=== PATIENT | female | born 1935 | race Caucasian/White ===

== ENCOUNTER → 2016-06-04 | Outpatient (CLI) | payer MEDICARE ==
--- NOTE | 2016-06-05 13:29 | MM ---
Reason for exam: screening (asymptomatic). Last mammogram was performed 1 year and 5 months ago. History: Patient is postmenopausal. Family history of breast cancer in sister at age 75 and breast cancer in mother. Took estrogen for 3 months. Physical Findings: A clinical breast exam by your physician is recommended on an annual basis and results should be correlated with mammographic findings. MG 3D Screening Mammo W/Cad Bilateral CC and MLO view(s) were taken. Prior study comparison: December 27, 2014, bilateral MG screening mammo w CAD. November 01, 2013, bilateral MG screening mammo w CAD. September 28, 2012, bilateral digital screening mammo w/CAD. There are scattered fibroglandular densities. No significant changes when compared with prior studies. ASSESSMENT: Negative, BI-RAD 1 RECOMMENDATION: Routine screening mammogram of both breasts in 1 year.
== END | disposition home or self-care (01) ==
LOC: RADMAMWWP 14:53
PROVIDERS: ATTEND Obstetrics & Gynecology
DX: Z12.31 Encounter for screening mammogram for malignant neoplasm of breast (principal); Z80.3 Family history of malignant neoplasm of breast
CPT/HCPCS: 77052; 77063; G0202

== ENCOUNTER → 2017-08-21 | Outpatient (CLI) | payer MEDICARE ==
--- NOTE | 2017-08-24 11:36 | MM ---
Reason for exam: screening (asymptomatic). Last mammogram was performed 1 year and 3 months ago. History: Patient is postmenopausal. Family history of breast cancer in sister at age 75 and breast cancer in mother. Took estrogen for 3 months. Physical Findings: A clinical breast exam by your physician is recommended on an annual basis and results should be correlated with mammographic findings. MG 3D Screening Mammo W/Cad Bilateral CC and MLO view(s) were taken. Prior study comparison: June 04, 2016, bilateral MG 3d screening mammo w/cad. December 27, 2014, bilateral MG screening mammo w CAD. The breast tissue is heterogeneously dense. This may lower the sensitivity of mammography. Benign calcifications bilaterally. ASSESSMENT: Benign, BI-RAD 2 RECOMMENDATION: Routine screening mammogram of both breasts in 1 year.
== END | disposition home or self-care (01) ==
LOC: RADMAMWWP 13:24
PROVIDERS: ATTEND Obstetrics & Gynecology
DX: Z12.31 Encounter for screening mammogram for malignant neoplasm of breast (principal); Z80.3 Family history of malignant neoplasm of breast
CPT/HCPCS: 77063; 77067

== ENCOUNTER 2017-09-06 18:56 | Inpatient (IN) | payer MEDICARE ==
[2017-09-06] MEDS ORDERED: SODIUM CHLORIDE 0.9% 500 ML IV STA (19:39)
[2017-09-06] MEDS ORDERED: MORPHINE SULFATE 4MG/4ML SYRG IV STA (19:39)
[2017-09-06] MEDS ORDERED: RX INFO: IV CONTRAST WAS GIVEN 1 EACH MISC MISCELLANE PRN (19:39)
[2017-09-06] MEDS ORDERED: ONDANSETRON 4 MG/2 ML VIAL IVP STA ×2 (19:39→21:08)
--- NOTE | 2017-09-06 19:42 | ED ---
General Adult HPI - General Chief complaint: Abdominal Pain Stated complaint: abd pain Time Seen by Provider: 09/06/17 19:23 Source: patient, RN notes reviewed, old records reviewed Mode of arrival: ambulatory Limitations: no limitations - History of Present Illness Initial comments: 82-year-old female presenting from home with chief complaint of lower abdominal pain. Pain began this morning, has progressively worsened. Describes it as bilateral lower abdominal pain. She has had decreased bathroom several times today, stool was soft but no wallace diarrhea. Patient has had several episodes of vomiting which has progressed to dry heaving. No history of fever or chills. Patient is fairly healthy at baseline, has glaucoma and asthma. - Related Data Allergies Allergy/AdvReac Type Severity Reaction Status Date / Time azithromycin Allergy Unknown Verified 09/06/17 19:06 Review of Systems ROS Statement: Those systems with pertinent positive or pertinent negative responses have been documented in the HPI. ROS Other: All systems not noted in ROS Statement are negative. Past Medical History Past Medical History: Asthma History of Any Multi-Drug Resistant Organisms: None Reported Past Surgical History: Back Surgery, Cholecystectomy, Hysterectomy Additional Past Surgical History / Comment(s): cataract Past Psychological History: No Psychological Hx Reported Smoking Status: Never smoker Past Alcohol Use History: Rare Past Drug Use History: None Reported General Exam Limitations: no limitations General appearance: alert, in no apparent distress Head exam: Present: atraumatic, normocephalic Eye exam: Present: normal appearance, PERRL, EOMI ENT exam: Present: normal exam Neck exam: Present: normal inspection. Absent: tenderness, meningismus Respiratory exam: Present: normal lung sounds bilaterally. Absent: respiratory distress, wheezes Cardiovascular Exam: Present: regular rate, normal rhythm GI/Abdominal exam: Present: soft, tenderness (Right lower quadrant,), hernia ( Hernia right lower quadrant, nonreducible, tender). Absent: distended Extremities exam: Present: normal inspection, full ROM, normal capillary refill. Absent: tenderness, pedal edema Neurological exam: Present: alert, oriented X3, CN II-XII intact. Absent: motor sensory deficit Psychiatric exam: Present: normal affect, normal mood Skin exam: Present: warm, dry, intact. Absent: cyanosis, diaphoretic Course Vital Signs 09/06/17 09/06/17 09/06/17 19:02 20:08 21:26 Temperature 97.6 F 97.6 F Pulse Rate 76 78 88 Respiratory 18 18 18 Rate Blood Pressure 182/87 165/92 O2 Sat by Pulse 99 99 98 Oximetry EKG Findings - EKG Comments: EKG Findings:: EKG, sinus rhythm with PACs, ventricular rate of 76, LA interval 160, QRS duration 90, QTC 447 Medical Decision Making - Medical Decision Making 82-year-old female presenting with abdominal pain nausea vomiting. On exam patient has a right inguinal hernia which is nonreducible, firm and tender. Laboratory studies are obtained, she has elevated white blood cell count 15.9, hemoglobin 14.0 CO2 is 19 consistent with a degree of acidosis, lactic acid elevated at 2.3. CT shows right inguinal hernia with transition point and small bowel obstruction. This is discussed with Dr. Smith, he will take the patient to the operating room tonight. NG tube is placed in the emergency department. Patient given IV hydration, 1 g ceftriaxone. Diagnosis: Incarcerated hernia, lactic acidosis, small bowel obstruction - Lab Data Result diagrams: 09/06/17 19:35 09/06/17 19:35 Lab Results 09/06/17 09/06/17 09/06/17 Range/Units 19:35 19:35 19:35 WBC 15.9 H (3.8-10.6) k/uL RBC 4.63 (3.80-5.40) m/uL Hgb 14.0 (11.4-16.0) gm/dL Hct 42.7 (34.0-46.0) % MCV 92.2 (80.0-100.0) fL MCH 30.2 (25.0-35.0) pg MCHC 32.8 (31.0-37.0) g/dL RDW 13.5 (11.5-15.5) % Plt Count 289 (150-450) k/uL Neutrophils % 86 % Lymphocytes % 10 % Monocytes % 3 % Eosinophils % 0 % Basophils % 0 % Neutrophils # 13.6 H (1.3-7.7) k/uL Lymphocytes # 1.5 (1.0-4.8) k/uL Monocytes # 0.5 (0-1.0) k/uL Eosinophils # 0.1 (0-0.7) k/uL Basophils # 0.0 (0-0.2) k/uL PT (9.0-12.0) sec INR (<1.2) APTT (22.0-30.0) sec Sodium 137 (137-145) mmol/L Potassium 4.3 (3.5-5.1) mmol/L Chloride 103 (98-107) mmol/L Carbon Dioxide 19 L (22-30) mmol/L Anion Gap 15 mmol/L BUN 22 H (7-17) mg/dL Creatinine 0.90 (0.52-1.04) mg/dL Est GFR (CKD-EPI)AfAm 69 (>60 ml/min/1.73 sqM) Est GFR (CKD-EPI)NonAf 60 (>60 ml/min/1.73 sqM) Glucose 158 H (74-99) mg/dL Plasma Lactic Acid Yogi 2.3 H* (0.7-2.0) mmol/L Calcium 10.0 (8.4-10.2) mg/dL Total Bilirubin 0.4 (0.2-1.3) mg/dL AST 22 (14-36) U/L ALT 23 (9-52) U/L Alkaline Phosphatase 62 (38-126) U/L Total Protein 7.1 (6.3-8.2) g/dL Albumin 4.2 (3.5-5.0) g/dL Amylase 37 (30-110) U/L Lipase 229 (23-300) U/L Urine Color Urine Appearance (Clear) Urine pH (5.0-8.0) Ur Specific [place] (1.001-1.035) Urine Protein (Negative) Urine Glucose (UA) (Negative) Urine Ketones (Negative) Urine Blood (Negative) Urine Nitrite (Negative) Urine Bilirubin (Negative) Urine Urobilinogen (<2.0) mg/dL Ur Leukocyte Esterase (Negative) Urine RBC (0-5) /hpf Urine WBC (0-5) /hpf Ur Squamous Epith Cells (0-4) /hpf Urine Bacteria (None) /hpf Urine Mucus (None) /hpf 09/06/17 09/06/17 Range/Units 19:35 21:15 WBC (3.8-10.6) k/uL RBC (3.80-5.40) m/uL Hgb (11.4-16.0) gm/dL Hct (34.0-46.0) % MCV (80.0-100.0) fL MCH (25.0-35.0) pg MCHC (31.0-37.0) g/dL RDW (11.5-15.5) % Plt Count (150-450) k/uL Neutrophils % % Lymphocytes % % Monocytes % % Eosinophils % % Basophils % % Neutrophils # (1.3-7.7) k/uL Lymphocytes # (1.0-4.8) k/uL Monocytes # (0-1.0) k/uL Eosinophils # (0-0.7) k/uL Basophils # (0-0.2) k/uL PT 10.3 (9.0-12.0) sec INR 1.1 (<1.2) APTT 19.9 L (22.0-30.0) sec Sodium (137-145) mmol/L Potassium (3.5-5.1) mmol/L Chloride (98-107) mmol/L Carbon Dioxide (22-30) mmol/L Anion Gap mmol/L BUN (7-17) mg/dL Creatinine (0.52-1.04) mg/dL Est GFR (CKD-EPI)AfAm (>60 ml/min/1.73 sqM) Est GFR (CKD-EPI)NonAf (>60 ml/min/1.73 sqM) Glucose (74-99) mg/dL Plasma Lactic Acid Yogi (0.7-2.0) mmol/L Calcium (8.4-10.2) mg/dL Total Bilirubin (0.2-1.3) mg/dL AST (14-36) U/L ALT (9-52) U/L Alkaline Phosphatase (38-126) U/L Total Protein (6.3-8.2) g/dL Albumin (3.5-5.0) g/dL Amylase (30-110) U/L Lipase (23-300) U/L Urine Color Light Yellow Urine Appearance Clear (Clear) Urine pH 6.0 (5.0-8.0) Ur Specific [place] 1.034 (1.001-1.035) Urine Protein Negative (Negative) Urine Glucose (UA) 2+ H (Negative) Urine Ketones 2+ H (Negative) Urine Blood Negative (Negative) Urine Nitrite Negative (Negative) Urine Bilirubin Negative (Negative) Urine Urobilinogen <2.0 (<2.0) mg/dL Ur Leukocyte Esterase Moderate H (Negative) Urine RBC 7 H (0-5) /hpf Urine WBC 28 H (0-5) /hpf Ur Squamous Epith Cells 2 (0-4) /hpf Urine Bacteria Rare H (None) /hpf Urine Mucus Rare H (None) /hpf Critical Care Time Critical Care Time: Yes Total Critical Care Time: 35 Disposition Clinical Impression: Small bowel obstruction, Incarcerated hernia, Lactic acidosis Disposition: ADMITTED IP TO THIS [facility] Condition: Serious Referrals: Osman Wolf MD [Primary Care Provider] - 1-2 days Decision to Admit Reason: Admit from EC Decision Date: 09/06/17 Decision Time: 21:38
[2017-09-06 20:01] LABS: Basophils % (A) 0 %; Eosinophils # (A) 0.1 k/uL (0-0.7); Eosinophils % (A) 0 %; HCT 42.7 % (34.0-46.0); Lymphocytes # (A) 1.5 k/uL (1.0-4.8); Lymphocytes % (A) 10 %; MCH 30.2 pg (25.0-35.0); MCHC 32.8 g/dL (31.0-37.0); MCV 92.2 fL (80.0-100.0); Mean Platelet Volume 7.3; Monocytes # (A) 0.5 k/uL (0-1.0); Monocytes % (A) 3 %; Neutrophils # (A) 13.6 k/uL (1.3-7.7); Neutrophils % (A) 86 %; Platelet Count 289 k/uL (150-450); RBC 4.63 m/uL (3.80-5.40); RDW 13.5 % (11.5-15.5); WBC 15.9 k/uL (3.8-10.6)
[2017-09-06 20:08] LABS: Albumin 4.2 g/dL (3.5-5.0); Potassium 4.3 mmol/L (3.5-5.1); Total Bilirubin 0.4 mg/dL (0.2-1.3); Total Protein 7.1 g/dL (6.3-8.2)
[2017-09-06 20:13] LABS: INR 1.1 (<1.2); Prothrombin Time 10.3 sec (9.0-12.0)
[2017-09-06 20:17] LABS: Partial Thromboplastin Time 19.9 sec (22.0-30.0)
--- NOTE | 2017-09-06 21:25 | CT ---
EXAMINATION TYPE: CT abdomen pelvis w con DATE OF EXAM: 09/06/2017 COMPARISON: NONE INDICATION: Low abdominal pain. DLP: 565.4 mGycm, Automated exposure control for dose reduction was used. CONTRAST: 80 mL of Isovue 300. Study performed without Oral Contrast TECHNIQUE: Axial images were obtained from above the diaphragm to the pubic rami in the axial plane a t 5 mm thick sections. Reconstructed images are reviewed on the computer in the coronal plane. FINDINGS: Limited CT sections are obtained the lung bases. The lung bases are clear. Small to moderate hiatal hernia is present. CT ABDOMEN: Liver: Normal Spleen: Normal Pancreas: Atrophic Adrenal glands: The adrenal glands are normal. Gallbladder: Not clearly identified. Kidneys: No masses are evident. No hydronephrosis is present. No cysts are present. Delayed images were obtained through the kidneys, which remain unremarkable. Aorta: Vascular calcification is within the aorta. Inferior vena cava: Normal. CT PELVIS: Multiple small bowel loops are dilated with fluid in scattered air-fluid levels. This extends to the inguinal hernia which contains loops of small bowel. Incarcerated loops of bowel are likely present. There is a transition point within the small bowel loops entering and exiting this hernia. Distal small bowel loops and proximal small bowel loops appear nondilated. Fecal debris is in the tr ansverse colon. Sigmoid colon contains multiple diverticuli without acute diverticulitis. Appendix: Not identified. No suspicious tubular structures or inflammatory changes are evident. Urinary bladder: Normal. Genitourinary structures: Uterus and ovaries are not identified. Osseous structures: No suspicious lytic or sclerotic lesions. IMPRESSIONS: 1. Right inguinal hernia containing small bowel loops. There is a transition point with decompressed exiting small bowel loop and dilated fluid-filled small bowel loops suggestive of high-grade or comp lete early obstruction due to the inguinal hernia. Report was called to emergency room physician by Albaro Rios by telephone [phone] hours
[2017-09-06 21:32] LABS: Appearance,Urine Clear (Clear); Bacteria,Urine Rare /hpf; Bilirubin,Urine Negative (Negative); Blood,Urine Negative (Negative); Color,Urine Light Yellow; Glucose,Urine (UA) 2+ (Negative); Leukocyte Esterase,Urine Moderate (Negative); Mucus,Urine Rare /hpf; Nitrite,Urine Negative (Negative); Protein,Urine Negative (Negative); RBC,Urine 7 /hpf (0-5); Specific Gravity,Urine 1.034 (1.001-1.035); Squamous Epithelial Cell,Urine 2 /hpf (0-4); Urobilinogen,Urine <2.0 mg/dL (<2.0); WBC,Urine 28 /hpf (0-5)
[2017-09-06] MEDS ORDERED: MORPHINE SULFATE 4MG/4ML SYRG IVP STA (21:33)
[2017-09-06 21:34] LABS: Ketones,Urine 2+ (Negative)
[2017-09-06] MEDS ORDERED: cefTRIAXone IN SWFI 1,000 MG/10 ML SYRINGE IVP STA (21:35)
[2017-09-06] MEDS ORDERED: MORPHINE SULFATE 4MG/4ML SYRG IV PRN (21:39)
[2017-09-06] MEDS ORDERED: NALOXONE 0.4 MG/ML 1 ML VIAL IV PRN (21:39)
[2017-09-06] MEDS ORDERED: SODIUM CHLORIDE 0.9% 1,000 ML IV SCH (21:45)
--- NOTE | 2017-09-06 22:36 | P.GSHP ---
History of Present Illness H&P Date: 09/06/17 Is a 82-year-old female who presented to the emergency room with a chief complaint of nausea vomiting and abdominal pain this was right lower quadrant abdominal pain. She states this all began at 3:00 this afternoon. She's been coughing secondary to a cold that she had. Her last bowel movement was 1 day ago. Her pain is mostly in her groin but she is experiencing some lower abdominal pain as well. She's never had pain like this before. Nothing makes it better and nothing makes it worse. She has a past surgical history of open cholecystectomy in 1976 and subsequently a incisional hernia repair. She's also had a bladder sling. She denies any fevers or chills no other complaints Past Medical History Past Medical History: Asthma History of Any Multi-Drug Resistant Organisms: None Reported Past Surgical History: Back Surgery, Cholecystectomy, Hysterectomy Additional Past Surgical History / Comment(s): cataract Past Psychological History: No Psychological Hx Reported Smoking Status: Never smoker Past Alcohol Use History: Rare Past Drug Use History: None Reported Medications and Allergies Allergies Allergy/AdvReac Type Severity Reaction Status Date / Time azithromycin Allergy Unknown Verified 09/06/17 19:06 Surgical - Exam Osteopathic Statement: *. No significant issues noted on an osteopathic structural exam other than those noted in the History and Physical/Consult. Vital Signs Temp Pulse Resp BP Pulse Ox 97.6 F 76 18 182/87 99 09/06/17 19:02 09/06/17 19:02 09/06/17 19:02 09/06/17 19:02 09/06/17 19:02 - General well developed, well nourished, no distress - Eyes PERRL - ENT normal mucosa - Neck no masses, trachea midline - Respiratory normal expansion, normal respiratory effort - Cardiovascular Rhythm: regular - Abdomen Soft mild distention mild tenderness palpation the right lower and left lower quadrant. She has an incarcerated right inguinal hernia which is tender to palpation - Neurologic normal coordination, normal sensation - Musculoskeletal normal gait - Psychiatric oriented to time, oriented to person, oriented to place Results - Labs 09/06/17 19:35 09/06/17 19:35 Abnormal Lab Results - Last 24 Hours (Table) 09/06/17 09/06/17 09/06/17 Range/Units 19:35 19:35 19:35 WBC 15.9 H (3.8-10.6) k/uL Neutrophils # 13.6 H (1.3-7.7) k/uL APTT (22.0-30.0) sec Carbon Dioxide 19 L (22-30) mmol/L BUN 22 H (7-17) mg/dL Glucose 158 H (74-99) mg/dL Plasma Lactic Acid Yogi 2.3 H* (0.7-2.0) mmol/L Urine Glucose (UA) (Negative) Urine Ketones (Negative) Ur Leukocyte Esterase (Negative) Urine RBC (0-5) /hpf Urine WBC (0-5) /hpf Urine Bacteria (None) /hpf Urine Mucus (None) /hpf 09/06/17 09/06/17 Range/Units 19:35 21:15 WBC (3.8-10.6) k/uL Neutrophils # (1.3-7.7) k/uL APTT 19.9 L (22.0-30.0) sec Carbon Dioxide (22-30) mmol/L BUN (7-17) mg/dL Glucose (74-99) mg/dL Plasma Lactic Acid Yogi (0.7-2.0) mmol/L Urine Glucose (UA) 2+ H (Negative) Urine Ketones 2+ H (Negative) Ur Leukocyte Esterase Moderate H (Negative) Urine RBC 7 H (0-5) /hpf Urine WBC 28 H (0-5) /hpf Urine Bacteria Rare H (None) /hpf Urine Mucus Rare H (None) /hpf Diabetes panel 09/06/17 Range/Units 19:35 Sodium 137 (137-145) mmol/L Potassium 4.3 (3.5-5.1) mmol/L Chloride 103 (98-107) mmol/L Carbon Dioxide 19 L (22-30) mmol/L BUN 22 H (7-17) mg/dL Creatinine 0.90 (0.52-1.04) mg/dL Glucose 158 H (74-99) mg/dL Calcium 10.0 (8.4-10.2) mg/dL AST 22 (14-36) U/L ALT 23 (9-52) U/L Alkaline Phosphatase 62 (38-126) U/L Total Protein 7.1 (6.3-8.2) g/dL Albumin 4.2 (3.5-5.0) g/dL Calcium panel 09/06/17 Range/Units 19:35 Calcium 10.0 (8.4-10.2) mg/dL Albumin 4.2 (3.5-5.0) g/dL Pituitary panel 09/06/17 Range/Units 19:35 Sodium 137 (137-145) mmol/L Potassium 4.3 (3.5-5.1) mmol/L Chloride 103 (98-107) mmol/L Carbon Dioxide 19 L (22-30) mmol/L BUN 22 H (7-17) mg/dL Creatinine 0.90 (0.52-1.04) mg/dL Glucose 158 H (74-99) mg/dL Calcium 10.0 (8.4-10.2) mg/dL Adrenal panel 09/06/17 Range/Units 19:35 Sodium 137 (137-145) mmol/L Potassium 4.3 (3.5-5.1) mmol/L Chloride 103 (98-107) mmol/L Carbon Dioxide 19 L (22-30) mmol/L BUN 22 H (7-17) mg/dL Creatinine 0.90 (0.52-1.04) mg/dL Glucose 158 H (74-99) mg/dL Calcium 10.0 (8.4-10.2) mg/dL Total Bilirubin 0.4 (0.2-1.3) mg/dL AST 22 (14-36) U/L ALT 23 (9-52) U/L Alkaline Phosphatase 62 (38-126) U/L Total Protein 7.1 (6.3-8.2) g/dL Albumin 4.2 (3.5-5.0) g/dL - Imaging CT scan - abdomen: report reviewed, image reviewed CT scan - pelvis: report reviewed, image reviewed Assessment and Plan Assessment: Incarcerated right inguinal hernia. Plan: Given the patient's elevated white count along with elevated lactic acid and history of this incarcerated inguinal hernia for greater than 6 hours I discussed with the patient having an inguinal hernia repair with possible bowel resection if there is compromised small bowel. Risks benefits and alternatives to this were discussed the patient risks include bleeding infection damage surrounding tissue need for further operation. Patient stated she understood these risks agreed and consented. She'll remain nothing by mouth she received Rocephin in the emergency room.
[2017-09-06] MEDS ORDERED: SUCCINYLCHOLINE CHLORIDE 100 MG/5 ML SYR IV ONE (22:41)
[2017-09-06] MEDS ORDERED: LIDOCAINE 1% INJ 10MG/ML (20 ML MDV) ONE (22:41)
[2017-09-06] MEDS ORDERED: SODIUM CHLORIDE 0.9% 1,000 ML IV ONE (22:41)
[2017-09-06] MEDS ORDERED: ROCURONIUM BROMIDE 10 MG/ML 10 ML VIAL IV ONE (22:41)
[2017-09-06] MEDS ORDERED: fentaNYL (PF) 50 MCG/ML 2 ML AMP ONE (22:41)
[2017-09-06] MEDS ORDERED: PROPOFOL 10 MG/ML 20 ML VIAL IV ONE (22:41)
[2017-09-06] MEDS ORDERED: NEOSTIGMINE 1 MG/ML 10 ML VIAL ONE (22:41)
[2017-09-06] MEDS ORDERED: GLYCOPYRROLATE 0.2 MG/ML 2 ML VIAL ONE (22:41)
[2017-09-06] MEDS ORDERED: LIDOCAINE 1%-EPI 1:100,000 30 ML VIAL SQ ONE ×2 (23:05)
[2017-09-06] MEDS ORDERED: BUPIVACAINE (PF) 0.25% 30 ML VIAL SQ ONE ×2 (23:05)
[2017-09-06] MEDS ORDERED: metroNIDAZOLE-NS PMX 500 MG in SALINE 1 100ML.BAG IVPB STA (23:07)
[2017-09-07] MEDS ORDERED: MORPHINE SULFATE 4MG/4ML SYRG IVP PRN (00:07)
[2017-09-07] MEDS ORDERED: ACETAMINOPHEN IV (For NPO) 1,000 MG in EMPTY BAG 1 BAG IVPB ONE (00:07)
[2017-09-07] MEDS ORDERED: NALOXONE 0.4 MG/ML 1 ML VIAL IV PRN (00:07)
[2017-09-07] MEDS: LACTATED RINGERS 1,000 ML IV SCH ×3 (01:20→21:10)
[2017-09-07] MEDS: metroNIDAZOLE-NS PMX 500 MG in SALINE 1 100ML.BAG IVPB SCH ×4 (06:11→23:29)
[2017-09-07 06:18] LABS: Basophils % (A) 0 %; Eosinophils % (A) 0 %; HCT 33.1 % (34.0-46.0); Lymphocytes # (A) 0.8 k/uL (1.0-4.8); Lymphocytes % (A) 4 %; MCH 29.5 pg (25.0-35.0); MCHC 31.8 g/dL (31.0-37.0); MCV 92.6 fL (80.0-100.0); Mean Platelet Volume 7.2; Monocytes % (A) 5 %; Neutrophils # (A) 16.2 k/uL (1.3-7.7); Neutrophils % (A) 90 %; Platelet Count 245 k/uL (150-450); RBC 3.57 m/uL (3.80-5.40); RDW 13.5 % (11.5-15.5); WBC 18.1 k/uL (3.8-10.6)
[2017-09-07 06:20] LABS: HGB 10.5 gm/dL (11.4-16.0)
[2017-09-07 06:29] LABS: Anion Gap 8 mmol/L; Blood Urea Nitrogen 18 mg/dL (7-17); Calcium 8.5 mg/dL (8.4-10.2); Carbon Dioxide 22 mmol/L (22-30); Chloride 105 mmol/L (98-107); Glucose 154 mg/dL (74-99); Potassium 4.7 mmol/L (3.5-5.1); Sodium 135 mmol/L (137-145)
[2017-09-07] MEDS: PANTOPRAZOLE 40 MG/10 ML VIAL IV SCH (08:42)
[2017-09-07] MEDS: HEPARIN SODIUM,PORCINE 5,000 UNIT/ML 1 ML VIAL SQ SCH ×3 (08:42→23:29)
--- NOTE | 2017-09-07 12:06 | P.OP ---
Date of Procedure: 09/06/17 Preoperative Diagnosis: Incarcerated right inguinal hernia Postoperative Diagnosis: Strangulated right inguinal hernia with ischemic bowel Procedure(s) Performed: Repair of strangulated right inguinal hernia with resection of ischemic bowel Anesthesia: CHARLIE Surgeon: Osman Smith Pathology: other (Ischemic/necrotic bowel with hernia sac) Condition: stable Disposition: PACU Indications for Procedure: This 82-year-old female who presented to the hospital with a chief complaint of right groin and abdominal pain nausea vomiting she was found to have a incarcerated right inguinal hernia and it was containing bowel she had an elevated white count and lactic acidosis. She described risk benefits and alternatives to right inguinal hernia repair with possible bowel resection. She states she understood agreed and consented informed consent was obtained Operative Findings: Stranding the right inguinal hernia containing ischemic/necrotic bowel Description of Procedure: Patient was brought to the operative suite remained in the supine position underwent general endotracheal anesthesia per Department of anesthesia she was prepped and draped in the usual sterile fashion timeout was performed correct patient correct procedure correct site was verified. An incision was made in the right groin approximately 7 cm long carried down to the external oblique fascia which was incised and there was a large firm hernia sac noted. The hernia appeared to be a direct inguinal hernia and the sac was dissected down to the base of the defect. At this point the sac was opened with Metzenbaum scissors and immediately dark ascites and ischemic bowel which appeared necrotic was noted. The bowel was not perforated. Small bowel from a proximal and distal limbs were both brought up through the defect easily until healthy bowel was noted. SATYA blue load stapler was used to staple across both the proximal and distal ends at healthy pink sections. Using a LigaSure the mesentery of the necrotic bowel was ligated and the ischemic necrotic piece was removed and sent to pathology. The proximal and distal ends were aligned enterotomies were made near the staple line and side to side functional end to end anastomosis was created using a blue load SATYA stapler. The common enterotomy was then closed with a blue TA stapler. A 3-0 Vicryl crotch stitch was placed the bowel was inspected the staple lines were inspected for hemostasis which was noted and then return to the peritoneal cavity through the defect. The hernia sac was ligated high ligation with 0 Vicryl stick tie and returned to the defect. The hernia was then repaired using 2-0 Vicryl suture transversalis was approximated to Rik's ligament with interrupted sutures. 3 -0 Vicryl was used to close the external oblique skin asha were used to close the skin after the wound was copiously irrigated sterile dressing was applied patient tolerated procedure well no apparent complications
--- NOTE | 2017-09-07 12:10 | P.PN ---
Subjective Progress Note Date: 09/07/17 Patient is doing well today, pain is improved. No acute events overnight. Dark bilious output from NGT. No bowel function reported. VSSAF Objective - Vital Signs Vital signs: Vital Signs Temp 98.7 F 09/07/17 07:00 Pulse 99 09/07/17 07:00 Resp 14 09/07/17 07:00 BP 105/59 09/07/17 07:00 Pulse Ox 98 09/07/17 07:00 Intake & Output 09/06/17 09/07/17 09/07/17 18:59 06:59 18:59 Intake Total 2500 Output Total 1055 Balance 1445 Weight 63.503 kg Intake: IV 600 Intake, IV Titration 1900 Amount ACETAMINOPHEN IV (For NPO 100 ) 1,000 mg In Empty Bag 1 bag @ 400 mls/hr IVPB ONCE ONE Rx#:[id number] Lactated Ringers 1,000 ml 800 @ 100 mls/hr IV .Q10H CARLOS Rx#:[id number] Sodium Chloride 0.9% 500 1000 ml @ 999 mls/hr IV .Q31M STA Rx#:[id number] Output: Gastric Drainage 75 Urine 950 Estimated Blood Loss 30 Other: Voiding Method Indwelling Catheter - Constitutional General appearance: Present: cooperative - EENT Eyes: Present: PERRLA - Respiratory Details: nonlabored - Cardiovascular Rhythm: regular - Gastrointestinal Gastrointestinal Comment(s): Soft nondistended. incisional TTP expected. - Integumentary Integumentary Comment(s): incision C/D/I - Psychiatric Psychiatric: Present: A&O x's 3 - Labs CBC & Chem 7: 09/07/17 05:50 09/07/17 05:50 Labs: Abnormal Lab Results - Last 24 Hours (Table) 09/06/17 09/06/17 09/06/17 Range/Units 19:35 19:35 19:35 WBC 15.9 H (3.8-10.6) k/uL RBC (3.80-5.40) m/uL Hgb (11.4-16.0) gm/dL Hct (34.0-46.0) % Neutrophils # 13.6 H (1.3-7.7) k/uL Lymphocytes # (1.0-4.8) k/uL APTT (22.0-30.0) sec Sodium (137-145) mmol/L Carbon Dioxide 19 L (22-30) mmol/L BUN 22 H (7-17) mg/dL Glucose 158 H (74-99) mg/dL Plasma Lactic Acid Yogi 2.3 H* (0.7-2.0) mmol/L Urine Glucose (UA) (Negative) Urine Ketones (Negative) Ur Leukocyte Esterase (Negative) Urine RBC (0-5) /hpf Urine WBC (0-5) /hpf Urine Bacteria (None) /hpf Urine Mucus (None) /hpf 09/06/17 09/06/17 09/07/17 Range/Units 19:35 21:15 05:50 WBC 18.1 H (3.8-10.6) k/uL RBC 3.57 L (3.80-5.40) m/uL Hgb 10.5 L D (11.4-16.0) gm/dL Hct 33.1 L (34.0-46.0) % Neutrophils # 16.2 H (1.3-7.7) k/uL Lymphocytes # 0.8 L (1.0-4.8) k/uL APTT 19.9 L (22.0-30.0) sec Sodium (137-145) mmol/L Carbon Dioxide (22-30) mmol/L BUN (7-17) mg/dL Glucose (74-99) mg/dL Plasma Lactic Acid Yogi (0.7-2.0) mmol/L Urine Glucose (UA) 2+ H (Negative) Urine Ketones 2+ H (Negative) Ur Leukocyte Esterase Moderate H (Negative) Urine RBC 7 H (0-5) /hpf Urine WBC 28 H (0-5) /hpf Urine Bacteria Rare H (None) /hpf Urine Mucus Rare H (None) /hpf 09/07/17 Range/Units 05:50 WBC (3.8-10.6) k/uL RBC (3.80-5.40) m/uL Hgb (11.4-16.0) gm/dL Hct (34.0-46.0) % Neutrophils # (1.3-7.7) k/uL Lymphocytes # (1.0-4.8) k/uL APTT (22.0-30.0) sec Sodium 135 L (137-145) mmol/L Carbon Dioxide (22-30) mmol/L BUN 18 H (7-17) mg/dL Glucose 154 H (74-99) mg/dL Plasma Lactic Acid Yogi (0.7-2.0) mmol/L Urine Glucose (UA) (Negative) Urine Ketones (Negative) Ur Leukocyte Esterase (Negative) Urine RBC (0-5) /hpf Urine WBC (0-5) /hpf Urine Bacteria (None) /hpf Urine Mucus (None) /hpf Assessment and Plan Assessment: POD#1 small bowel resection with repair of strangulated right inguinal hernia. Plan: Continue NPO NGT and IVF. Continue IS and patient was instructed to be up to chair and ambulating with help today. Cont 24 hours of abx. Await bowel function
[2017-09-07] MEDS: ONDANSETRON 4 MG/2 ML VIAL IVP PRN (14:58)
[2017-09-07] MEDS: KETOROLAC 30 MG/ML 1 ML VIAL IVP PRN (16:37)
--- NOTE | 2017-09-07 18:00 | P.CONS ---
History of Present Illness - Reason for Consult Strangulated hernia - History of Present Illness Patient is an 82-year-old pleasant female came in with a left inguinal strangulated hernia for which patient successfully underwent bowel resection and reduction of hernia. And repair. Patient is doing well postoperatively patient the did pass gas and the pain is fairly well controlled patient denied any fever chills nausea vomiting dysuria only catheter was removed patient is presently on Rocephin and metronidazole for intra-abdominal source of infection considering her lactic acidosis, leukocytosis. Review of Systems REVIEW OF SYSTEMS: CONSTITUTIONAL: No fever, no malaise, no fatigue. HEENT: No recent visual problems or hearing problems. Denied any sore throat. CARDIOVASCULAR: No chest pain, orthopnea, PND, no palpitations, no syncope. PULMONARY: No shortness of breath, no cough, no hemoptysis. GASTROINTESTINAL: Presently denied any significant abdominal pain NEUROLOGICAL: No headaches, no weakness, no numbness. HEMATOLOGICAL: Denies any bleeding or petechiae. GENITOURINARY: Denies any burning micturition, frequency, or urgency. MUSCULOSKELETAL/RHEUMATOLOGICAL: Denies any joint pain, swelling, or any muscle pain. ENDOCRINE: Denies any polyuria or polydipsia. The rest of the 14-point review of systems is negative. Past Medical History Past Medical History: Asthma History of Any Multi-Drug Resistant Organisms: None Reported Past Surgical History: Back Surgery, Cholecystectomy, Hysterectomy Additional Past Surgical History / Comment(s): cataract Past Psychological History: No Psychological Hx Reported Smoking Status: Never smoker Past Alcohol Use History: Rare Past Drug Use History: None Reported Medications and Allergies Home Medications Medication Instructions Recorded Confirmed Type Brinzolamide/Brimonidine Tart 1 drop BOTH EYES BID 09/07/17 09/07/17 History [Simbrinza 1%-0.2% Eye Drops] Latanoprost Ophth [Xalatan 0.005%] 1 drop BOTH EYES HS 09/07/17 09/07/17 History Mometasone Furoate [Asmanex] 1 puff INHALATION RT-HS 09/07/17 09/07/17 History Allergies Allergy/AdvReac Type Severity Reaction Status Date / Time azithromycin Allergy Unknown Verified 09/07/17 08:03 Physical Exam Vitals: Vital Signs Temp Pulse Pulse Resp BP BP Pulse Ox 09/07/17 15:00 98 F 92 16 101/66 95 04/09/18 07:00 98.7 F 99 14 105/59 98 09/07/17 03:20 87 114/54 09/07/17 03:05 90 102/52 09/07/17 02:50 86 98/51 09/07/17 02:35 89 91/53 09/07/17 02:20 80 113/55 09/07/17 02:05 81 117/58 09/07/17 02:00 81 18 09/07/17 01:50 83 119/57 09/07/17 01:35 81 120/59 09/07/17 01:20 97.6 F 83 16 133/60 93 L 09/07/17 00:45 81 18 130/64 98 09/07/17 00:31 84 18 144/62 99 09/07/17 00:15 76 18 144/67 100 09/07/17 00:02 84 18 142/66 99 09/06/17 23:55 98.2 F 97 14 136/65 95 09/06/17 22:21 165/67 09/06/17 22:10 92 18 98 09/06/17 22:08 16 09/06/17 21:26 97.6 F 88 18 165/92 98 09/06/17 20:08 78 18 99 09/06/17 19:02 97.6 F 76 18 182/87 99 Intake and Output 09/07/17 09/07/17 09/07/17 06:59 14:59 22:59 Intake Total 2000 800 Output Total 1055 370 Balance 945 430 Intake: IV 100 Intake, IV Titration 1900 800 Amount ACETAMINOPHEN IV (For NPO 100 ) 1,000 mg In Empty Bag 1 bag @ 400 mls/hr IVPB ONCE ONE Rx#:[id number] Lactated Ringers 1,000 ml 800 800 @ 100 mls/hr IV .Q10H CARLOS Rx#:[id number] Sodium Chloride 0.9% 500 1000 ml @ 999 mls/hr IV .Q31M STA Rx#:[id number] Output: Gastric Drainage 75 Urine 950 370 Uretheral ([place]) 370 Estimated Blood Loss 30 Other: Voiding Method Indwelling Catheter PHYSICAL EXAMINATION: GENERAL: The patient is alert and oriented x3, not in any acute distress. Well developed, well nourished. HEENT: Pupils are round and equally reacting to light. EOMI. No scleral icterus. No conjunctival pallor. Normocephalic, atraumatic. No pharyngeal erythema. No thyromegaly. CARDIOVASCULAR: S1 and S2 present. No murmurs, rubs, or gallops. PULMONARY: Chest is clear to auscultation, no wheezing or crackles. ABDOMEN: Abdominal surgical site area appears to be clean bowel sounds sluggish but present. MUSCULOSKELETAL: No joint swelling or deformity. EXTREMITIES: No cyanosis, clubbing, or pedal edema. NEUROLOGICAL: Gross neurological examination did not reveal any focal deficits. SKIN: No rashes. Results CBC & Chem 7: 09/07/17 05:50 09/07/17 05:50 Labs: Abnormal Lab Results - Last 24 Hours (Table) 09/06/17 09/06/17 09/06/17 Range/Units 19:35 19:35 19:35 WBC 15.9 H (3.8-10.6) k/uL RBC (3.80-5.40) m/uL Hgb (11.4-16.0) gm/dL Hct (34.0-46.0) % Neutrophils # 13.6 H (1.3-7.7) k/uL Lymphocytes # (1.0-4.8) k/uL APTT (22.0-30.0) sec Sodium (137-145) mmol/L Carbon Dioxide 19 L (22-30) mmol/L BUN 22 H (7-17) mg/dL Glucose 158 H (74-99) mg/dL Plasma Lactic Acid Yogi 2.3 H* (0.7-2.0) mmol/L Urine Glucose (UA) (Negative) Urine Ketones (Negative) Ur Leukocyte Esterase (Negative) Urine RBC (0-5) /hpf Urine WBC (0-5) /hpf Urine Bacteria (None) /hpf Urine Mucus (None) /hpf 09/06/17 09/06/17 09/07/17 Range/Units 19:35 21:15 05:50 WBC 18.1 H (3.8-10.6) k/uL RBC 3.57 L (3.80-5.40) m/uL Hgb 10.5 L D (11.4-16.0) gm/dL Hct 33.1 L (34.0-46.0) % Neutrophils # 16.2 H (1.3-7.7) k/uL Lymphocytes # 0.8 L (1.0-4.8) k/uL APTT 19.9 L (22.0-30.0) sec Sodium (137-145) mmol/L Carbon Dioxide (22-30) mmol/L BUN (7-17) mg/dL Glucose (74-99) mg/dL Plasma Lactic Acid Yogi (0.7-2.0) mmol/L Urine Glucose (UA) 2+ H (Negative) Urine Ketones 2+ H (Negative) Ur Leukocyte Esterase Moderate H (Negative) Urine RBC 7 H (0-5) /hpf Urine WBC 28 H (0-5) /hpf Urine Bacteria Rare H (None) /hpf Urine Mucus Rare H (None) /hpf 09/07/17 Range/Units 05:50 WBC (3.8-10.6) k/uL RBC (3.80-5.40) m/uL Hgb (11.4-16.0) gm/dL Hct (34.0-46.0) % Neutrophils # (1.3-7.7) k/uL Lymphocytes # (1.0-4.8) k/uL APTT (22.0-30.0) sec Sodium 135 L (137-145) mmol/L Carbon Dioxide (22-30) mmol/L BUN 18 H (7-17) mg/dL Glucose 154 H (74-99) mg/dL Plasma Lactic Acid Yogi (0.7-2.0) mmol/L Urine Glucose (UA) (Negative) Urine Ketones (Negative) Ur Leukocyte Esterase (Negative) Urine RBC (0-5) /hpf Urine WBC (0-5) /hpf Urine Bacteria (None) /hpf Urine Mucus (None) /hpf Assessment and Plan Plan: -Strangulated hernia postoperative day 0 patient has an NG tube in place draining bilious fluid. Antibody management as per primary service patient is on Rocephin and metronidazole so. Pain is better controlled will use Toradol instead of morphine for pain -Leukocytosis secondary to possible intra-abdominal infection from stress- related hernia. -Asthma without any acute exacerbation patient inhaled steroids and as needed albuterol will be continued
[2017-09-07] MEDS: cefTRIAXone IN SWFI 1,000 MG/10 ML SYRINGE IVP SCH (21:07)
[2017-09-08] MEDS: KETOROLAC 30 MG/ML 1 ML VIAL IVP PRN (04:20)
[2017-09-08] MEDS: metroNIDAZOLE-NS PMX 500 MG in SALINE 1 100ML.BAG IVPB SCH ×4 (05:36→20:05)
[2017-09-08] MEDS: LACTATED RINGERS 1,000 ML IV SCH ×3 (05:39→20:04)
[2017-09-08 07:48] LABS: Calcium 8.3 mg/dL (8.4-10.2)
[2017-09-08 08:11] LABS: Basophils % (A) 0 %; Eosinophils % (A) 0 %; HCT 28.1 % (34.0-46.0); HGB 9.1 gm/dL (11.4-16.0); Lymphocytes # (A) 1.4 k/uL (1.0-4.8); Lymphocytes % (A) 12 %; MCH 29.9 pg (25.0-35.0); MCHC 32.2 g/dL (31.0-37.0); MCV 92.8 fL (80.0-100.0); Mean Platelet Volume 7.3; Monocytes # (A) 0.7 k/uL (0-1.0); Monocytes % (A) 6 %; Neutrophils # (A) 9.1 k/uL (1.3-7.7); Neutrophils % (A) 80 %; Platelet Count 224 k/uL (150-450); RBC 3.03 m/uL (3.80-5.40); RDW 13.7 % (11.5-15.5); WBC 11.4 k/uL (3.8-10.6)
[2017-09-08] MEDS: HEPARIN SODIUM,PORCINE 5,000 UNIT/ML 1 ML VIAL SQ SCH ×3 (08:17→23:25)
[2017-09-08] MEDS: PANTOPRAZOLE 40 MG/10 ML VIAL IV SCH (08:17)
--- NOTE | 2017-09-08 12:06 | P.PN ---
Subjective Patient resting in bed continues to complain of abdominal pain. Patient is nothing by mouth. NG to wall suction dark bilious drainage white count improved Objective - Vital Signs Vital signs: Vital Signs Temp 98.3 F 09/08/17 07:00 Pulse 105 H 09/08/17 07:00 Resp 16 09/08/17 07:00 BP 141/70 09/08/17 07:00 Pulse Ox 92 L 09/08/17 07:00 Intake & Output 09/07/17 09/08/17 09/08/17 18:59 06:59 18:59 Intake Total 800 1150 Output Total 370 400 350 Balance 430 750 -350 Intake: Intake, IV Titration 800 1150 Amount Lactated Ringers 1,000 ml 800 1050 @ 100 mls/hr IV .Q10H CARLOS Rx#:[id number] metroNIDAZOLE-NS PMX 500 100 mg In Saline 1 100ml.bag @ 100 mls/hr IVPB Q6HR CARLOS Rx#:[id number] Output: Gastric Drainage 200 Urine 370 200 350 Uretheral ([place]) 370 200 350 - Constitutional General appearance: Present: mild distress - EENT Eyes: Present: PERRLA Ears: bilateral: normal - Neck Neck: Present: normal ROM - Respiratory Respiratory: bilateral: CTA - Gastrointestinal General gastrointestinal: Present: soft - Integumentary Integumentary: Present: normal - Musculoskeletal Musculoskeletal: Present: generalized weakness - Psychiatric Psychiatric: Present: A&O x's 3, appropriate affect, intact judgment & insight - Labs CBC & Chem 7: 09/08/17 06:51 09/08/17 06:51 Labs: Abnormal Lab Results - Last 24 Hours (Table) 09/08/17 09/08/17 Range/Units 06:51 06:51 WBC 11.4 H (3.8-10.6) k/uL RBC 3.03 L (3.80-5.40) m/uL Hgb 9.1 L (11.4-16.0) gm/dL Hct 28.1 L (34.0-46.0) % Neutrophils # 9.1 H (1.3-7.7) k/uL Sodium 136 L (137-145) mmol/L BUN 26 H (7-17) mg/dL Glucose 108 H (74-99) mg/dL Calcium 8.3 L (8.4-10.2) mg/dL Assessment and Plan Plan: Assessment Incarcerated radiated right inguinal hernia with small bowel resection History of asthma stable Plan Continue with nothing by mouth and do section Patient continues on Rocephin and Flagyl We will monitor patient
[2017-09-08] MEDS: ONDANSETRON 4 MG/2 ML VIAL IVP PRN (12:39)
--- NOTE | 2017-09-08 14:37 | P.PN ---
Subjective Progress Note Date: 09/08/17 Patient is doing well today, pain is improved. No acute events overnight. Passing flatus. No BM. VSSAF Objective - Vital Signs Vital signs: Vital Signs Temp 98.4 F 09/08/17 14:30 Pulse 101 H 09/08/17 14:30 Resp 16 09/08/17 14:30 BP 153/72 09/08/17 14:30 Pulse Ox 93 L 09/08/17 14:30 Intake & Output 09/07/17 09/08/17 09/08/17 18:59 06:59 18:59 Intake Total 800 1150 800 Output Total 370 400 350 Balance 430 750 450 Intake: Intake, IV Titration 800 1150 800 Amount Lactated Ringers 1,000 ml 800 1050 800 @ 100 mls/hr IV .Q10H CARLOS Rx#:[id number] metroNIDAZOLE-NS PMX 500 100 mg In Saline 1 100ml.bag @ 100 mls/hr IVPB Q6HR CARLOS Rx#:[id number] Output: Gastric Drainage 200 Urine 370 200 350 Uretheral ([place]) 370 200 350 - EENT Eyes: Present: PERRLA - Respiratory Details: nonlabored - Cardiovascular Rhythm: regular - Gastrointestinal Gastrointestinal Comment(s): s/nt/nd incision CDI - Psychiatric Psychiatric: Present: A&O x's 3 - Labs CBC & Chem 7: 09/08/17 06:51 09/08/17 06:51 Labs: Abnormal Lab Results - Last 24 Hours (Table) 09/08/17 09/08/17 Range/Units 06:51 06:51 WBC 11.4 H (3.8-10.6) k/uL RBC 3.03 L (3.80-5.40) m/uL Hgb 9.1 L (11.4-16.0) gm/dL Hct 28.1 L (34.0-46.0) % Neutrophils # 9.1 H (1.3-7.7) k/uL Sodium 136 L (137-145) mmol/L BUN 26 H (7-17) mg/dL Glucose 108 H (74-99) mg/dL Calcium 8.3 L (8.4-10.2) mg/dL Assessment and Plan Assessment: POD#1 small bowel resection with repair of strangulated right inguinal hernia. Plan: DC NGT. Start clear liquid diet. Continue IS and patient was instructed to be up to chair and ambulating with help today. Await bowel function to advance diet
[2017-09-08] MEDS: cefTRIAXone IN SWFI 1,000 MG/10 ML SYRINGE IVP SCH (21:44)
[2017-09-09] MEDS: KETOROLAC 30 MG/ML 1 ML VIAL IVP PRN (04:26)
[2017-09-09] MEDS: metroNIDAZOLE-NS PMX 500 MG in SALINE 1 100ML.BAG IVPB SCH ×3 (04:27→18:45)
[2017-09-09] MEDS: LACTATED RINGERS 1,000 ML IV SCH (04:27)
[2017-09-09] MEDS: ONDANSETRON 4 MG/2 ML VIAL IVP PRN (05:44)
[2017-09-09 08:31] LABS: Basophils % (A) 0 %; Eosinophils # (A) 0.1 k/uL (0-0.7); Eosinophils % (A) 1 %; HCT 25.6 % (34.0-46.0); HGB 8.6 gm/dL (11.4-16.0); Lymphocytes # (A) 1.8 k/uL (1.0-4.8); Lymphocytes % (A) 18 %; MCH 30.8 pg (25.0-35.0); MCHC 33.6 g/dL (31.0-37.0); MCV 91.8 fL (80.0-100.0); Mean Platelet Volume 7.3; Monocytes # (A) 0.7 k/uL (0-1.0); Monocytes % (A) 7 %; Neutrophils # (A) 6.9 k/uL (1.3-7.7); Neutrophils % (A) 71 %; Platelet Count 216 k/uL (150-450); RBC 2.79 m/uL (3.80-5.40); RDW 13.7 % (11.5-15.5); WBC 9.7 k/uL (3.8-10.6)
[2017-09-09] MEDS: ACETAMINOPHEN TAB 325 MG TAB PO PRN ×2 (08:48→14:05)
[2017-09-09] MEDS: PANTOPRAZOLE 40 MG/10 ML VIAL IV SCH (08:49)
[2017-09-09] MEDS: HEPARIN SODIUM,PORCINE 5,000 UNIT/ML 1 ML VIAL SQ SCH ×3 (08:49→23:17)
[2017-09-09 09:00] LABS: Calcium 8.3 mg/dL (8.4-10.2); Potassium 3.8 mmol/L (3.5-5.1)
[2017-09-09 09:56] VITALS: BMI 24.7
--- NOTE | 2017-09-09 12:03 | P.PN ---
Subjective Patient improving. NG tube removed started on clear liquid diet. States she's had a bowel movement Objective - Vital Signs Vital signs: Vital Signs Temp 98.6 F 09/09/17 07:39 Pulse 94 09/09/17 07:39 Resp 16 09/09/17 07:39 BP 136/66 09/09/17 07:39 Pulse Ox 92 L 09/09/17 07:39 Intake & Output 09/08/17 09/09/17 09/09/17 18:59 06:59 18:59 Intake Total 800 550 Output Total 530 100 Balance 270 450 Weight 63.503 kg Intake: Intake, IV Titration 800 550 Amount Lactated Ringers 1,000 ml 800 350 @ 100 mls/hr IV .Q10H CARLOS Rx#:[id number] metroNIDAZOLE-NS PMX 500 200 mg In Saline 1 100ml.bag @ 100 mls/hr IVPB Q6HR CARLOS Rx#:[id number] Output: Urine 530 100 Uretheral ([place]) 350 Other: Voiding Method Bedside Commode Bedside Commode # Voids 2 - Constitutional General appearance: Present: mild distress - EENT Eyes: Present: PERRLA Ears: bilateral: normal - Neck Neck: Present: normal ROM - Respiratory Respiratory: left: CTA - Cardiovascular Rhythm: regular - Gastrointestinal General gastrointestinal: Present: decreased bowel sounds, soft - Integumentary Integumentary: Present: normal - Neurologic Neurologic: Present: CNII-XII intact - Musculoskeletal Musculoskeletal: Present: generalized weakness - Psychiatric Psychiatric: Present: A&O x's 3, appropriate affect, intact judgment & insight - Labs CBC & Chem 7: 09/09/17 07:26 09/09/17 07:26 Labs: Abnormal Lab Results - Last 24 Hours (Table) 09/09/17 09/09/17 Range/Units 07:26 07:26 RBC 2.79 L (3.80-5.40) m/uL Hgb 8.6 L (11.4-16.0) gm/dL Hct 25.6 L (34.0-46.0) % Sodium 131 L (137-145) mmol/L Calcium 8.3 L (8.4-10.2) mg/dL Assessment and Plan Plan: Assessment Incarcerated right inguinal hernia post small bowel resection History of asthma stable Plan We'll continue to monitor patient
--- NOTE | 2017-09-09 18:14 | P.PN ---
Subjective Progress Note Date: 09/09/17 Patient is doing well today, minimal pain, No acute events overnight. Passing flatus. BM x 2. Ambulating in room Objective - Vital Signs Vital signs: Vital Signs Temp 98.4 F 09/09/17 14:30 Pulse 68 09/09/17 14:30 Resp 15 09/09/17 14:30 BP 134/80 09/09/17 14:30 Pulse Ox 97 09/09/17 14:30 Intake & Output 09/08/17 09/09/17 09/09/17 18:59 06:59 18:59 Intake Total 800 550 Output Total 530 100 300 Balance 270 450 -300 Weight 63.503 kg Intake: Intake, IV Titration 800 550 Amount Lactated Ringers 1,000 ml 800 350 @ 100 mls/hr IV .Q10H CARLOS Rx#:[id number] metroNIDAZOLE-NS PMX 500 200 mg In Saline 1 100ml.bag @ 100 mls/hr IVPB Q6HR CARLOS Rx#:[id number] Output: Urine 530 100 300 Uretheral ([place]) 350 Other: Voiding Method Bedside Commode Bedside Commode # Voids 2 1 - Constitutional General appearance: Present: average body habitus, cooperative - EENT Eyes: Present: PERRLA - Respiratory Details: non labored breathing - Cardiovascular Details: regular - Gastrointestinal Gastrointestinal Comment(s): s/nt/nd groin incision CDI - Psychiatric Psychiatric: Present: A&O x's 3 - Labs CBC & Chem 7: 09/09/17 07:26 09/09/17 07:26 Labs: Abnormal Lab Results - Last 24 Hours (Table) 09/09/17 09/09/17 Range/Units 07:26 07:26 RBC 2.79 L (3.80-5.40) m/uL Hgb 8.6 L (11.4-16.0) gm/dL Hct 25.6 L (34.0-46.0) % Sodium 131 L (137-145) mmol/L Calcium 8.3 L (8.4-10.2) mg/dL Assessment and Plan Assessment: POD#1 small bowel resection with repair of strangulated right inguinal hernia. Plan: Patient had BM x 2 , will advance to soft diet. She is ambulating on her own, plan is for discharge home tomorrow if she tolerates her soft diet. She will be going home with her family who will be able to help her. She may shower
[2017-09-09] MEDS ORDERED: MORPHINE ORAL SOLN 10 MG/5 ML CUP PO PRN (20:05)
[2017-09-10] MEDS: ACETAMINOPHEN TAB 325 MG TAB PO PRN ×3 (03:19→15:36)
[2017-09-10 06:41] LABS: Basophils % (A) 0 %; Eosinophils # (A) 0.2 k/uL (0-0.7); Eosinophils % (A) 3 %; HCT 25.1 % (34.0-46.0); HGB 8.1 gm/dL (11.4-16.0); Lymphocytes # (A) 1.2 k/uL (1.0-4.8); Lymphocytes % (A) 15 %; MCH 29.9 pg (25.0-35.0); MCHC 32.4 g/dL (31.0-37.0); MCV 92.1 fL (80.0-100.0); Mean Platelet Volume 7.5; Monocytes # (A) 0.5 k/uL (0-1.0); Monocytes % (A) 6 %; Neutrophils % (A) 75 %; Platelet Count 211 k/uL (150-450); RBC 2.73 m/uL (3.80-5.40); RDW 13.6 % (11.5-15.5)
[2017-09-10 06:51] LABS: Anion Gap 7 mmol/L; Blood Urea Nitrogen 10 mg/dL (7-17); Calcium 8.3 mg/dL (8.4-10.2); Carbon Dioxide 23 mmol/L (22-30); Chloride 102 mmol/L (98-107); Glucose 102 mg/dL (74-99); Potassium 3.3 mmol/L (3.5-5.1); Sodium 132 mmol/L (137-145)
[2017-09-10] MEDS: PANTOPRAZOLE 40 MG/10 ML VIAL IV SCH (08:11)
[2017-09-10] MEDS: HEPARIN SODIUM,PORCINE 5,000 UNIT/ML 1 ML VIAL SQ SCH ×2 (08:11→15:37)
[2017-09-10] MEDS ORDERED: SODIUM CHLORIDE 0.9% 1,000 ML IV SCH (13:00)
--- NOTE | 2017-09-10 13:29 | P.PN ---
Subjective Progress Note Date: 09/10/17 Patient is doing well today, minimal pain, No acute events overnight. Passing flatus. BM overnight, loose, some dark stool. Ambulating in room Objective - Vital Signs Vital signs: Vital Signs Temp 98.7 F 09/10/17 07:57 Pulse 87 09/10/17 07:57 Resp 16 09/10/17 08:04 BP 144/68 09/10/17 07:57 Pulse Ox 94 L 09/10/17 07:57 Intake & Output 09/09/17 09/10/17 09/10/17 18:59 06:59 18:59 Intake Total 1080 120 Output Total 300 Balance -300 1080 120 Weight 63.503 kg Intake: Oral 1080 120 Output: Urine 300 Other: Voiding Method Bedside Commode Toilet Toilet Bedside Commode Bedside Commode # Voids 1 2 1 - Respiratory Details: nonlabored - Cardiovascular Rhythm: regular - Gastrointestinal Gastrointestinal Comment(s): soft/nd/nt incision CDI - Psychiatric Psychiatric: Present: A&O x's 3 - Labs CBC & Chem 7: 09/10/17 06:30 09/10/17 06:30 Labs: Abnormal Lab Results - Last 24 Hours (Table) 09/10/17 09/10/17 Range/Units 06:30 06:30 RBC 2.73 L (3.80-5.40) m/uL Hgb 8.1 L (11.4-16.0) gm/dL Hct 25.1 L (34.0-46.0) % Sodium 132 L (137-145) mmol/L Potassium 3.3 L (3.5-5.1) mmol/L Glucose 102 H (74-99) mg/dL Calcium 8.3 L (8.4-10.2) mg/dL Assessment and Plan Assessment: POD#4 small bowel resection with repair of strangulated right inguinal hernia. Plan: Doing well. no complaints at this time. loose BM expected. some old dark stool with old blood expected. Patient is stable for discharge, I discussed with her if she continues to have dark stools or blood in her stool to return to ED or call my office. She is tolerating her diet and ambulating on her own
--- NOTE | 2017-09-10 13:31 | P.DS ---
Providers Date of admission: 09/06/17 21:39 Attending physician: Osman Smith DO Consults: 09/06/17 21:41 Consult Physician Urgent Consulting Provider: Javier Isabel Consult Reason/Comments: Incarcerated hernia, small bowel obstruction, medical management Do you want consulting provider notified?: Yes Primary care physician: Osman Wolf Hospital Course: Patient was admitted to the hospital and went directly to the operating room for a strangulated right inguinal hernia she underwent right inguinal hernia repair with resection of necrotic ischemic small bowel. Procedure was without complication. Postoperatively the patient did well she began passing flatus and having bowel movements on 09/09/2017 she was advanced to a soft diet which she tolerated well. She's having no complaints of pain was well-controlled she is tolerating her diet and passing bowel movements on 09/10/2017 and discharged home in stable condition. She instructions that should she have blood in her bowel movement would become lightheaded to return to a hospital immediately. She is agreeable. Patient Condition at Discharge: Stable Plan - Discharge Summary Discharge Rx Participant: No New Discharge Prescriptions: New HYDROcodone/APAP 5-325MG [[place] 5-325] 1 tab PO Q6HR PRN #25 tab PRN Reason: Pain No Action Mometasone Furoate [Asmanex] 1 puff INHALATION RT-HS Latanoprost Ophth [Xalatan 0.005%] 1 drop BOTH EYES HS Brinzolamide/Brimonidine Tart [Simbrinza 1%-0.2% Eye Drops] 1 drop BOTH EYES BID Discharge Medication List Brinzolamide/Brimonidine Tart [Simbrinza 1%-0.2% Eye Drops] 1 drop BOTH EYES BID 09/07/17 [History] Latanoprost Ophth [Xalatan 0.005%] 1 drop BOTH EYES HS 09/07/17 [History] Mometasone Furoate [Asmanex] 1 puff INHALATION RT-HS 09/07/17 [History] HYDROcodone/APAP 5-325MG [[place] 5-325] 1 tab PO Q6HR PRN #25 tab 09/10/17 [Rx] Follow up Appointment(s)/Referral(s): Osman Wolf MD [Primary Care Provider] - 1 Week Activity/Diet/Wound Care/Special Instructions: Up as tolerated. No lifting over 15lbs. Discharge Disposition: HOME SELF-CARE
--- NOTE | 2017-09-10 14:17 | P.PN ---
Subjective Patient was admitted secondary to necrotic small bowel & related hernia. Patient was on antibiotics until couple days ago patient is being discharged today but had a couple episodes of diarrhea which are mucousy. Patient can be monitored later today if she doesn't have any more bowel movements can be discharged if she has any bowel movements probably should obtain C. diff testing patient is mildly hyponatremic probably episodes of diarrhea is contributing that are pain related SIADH is contributing to that potassium is low which was supplemented. Are as patient is clinically doing well. Constitutional: Denied any fatigue denied any fever. Cardio vascular: denied any chest pain, palpitations Gastrointestinal denied any nausea vomiting Pulmonary: Denied any shortness of breath cough Neurologic denied any new focal deficits Objective - Vital Signs Vital signs: Vital Signs Temp 98.7 F 09/10/17 07:57 Pulse 87 09/10/17 07:57 Resp 16 09/10/17 08:04 BP 144/68 09/10/17 07:57 Pulse Ox 94 L 09/10/17 07:57 Intake & Output 09/09/17 09/10/17 09/10/17 18:59 06:59 18:59 Intake Total 1080 357 Output Total 300 Balance -300 1080 357 Weight 63.503 kg Intake: Oral 1080 357 Output: Urine 300 Other: Voiding Method Bedside Commode Toilet Toilet Bedside Commode Bedside Commode # Voids 1 2 1 - Exam PHYSICAL EXAMINATION: GENERAL: The patient is alert and oriented x3, not in any acute distress. Well developed, well nourished. HEENT: Pupils are round and equally reacting to light. EOMI. No scleral icterus. No conjunctival pallor. Normocephalic, atraumatic. No pharyngeal erythema. No thyromegaly. CARDIOVASCULAR: S1 and S2 present. No murmurs, rubs, or gallops. PULMONARY: Chest is clear to auscultation, no wheezing or crackles. ABDOMEN: Abdominal surgical site area appears to be clean bowel sounds sluggish but present. MUSCULOSKELETAL: No joint swelling or deformity. EXTREMITIES: No cyanosis, clubbing, or pedal edema. NEUROLOGICAL: Gross neurological examination did not reveal any focal deficits. SKIN: No rashes. - Labs CBC & Chem 7: 09/10/17 06:30 09/10/17 06:30 Labs: Abnormal Lab Results - Last 24 Hours (Table) 09/10/17 09/10/17 Range/Units 06:30 06:30 RBC 2.73 L (3.80-5.40) m/uL Hgb 8.1 L (11.4-16.0) gm/dL Hct 25.1 L (34.0-46.0) % Sodium 132 L (137-145) mmol/L Potassium 3.3 L (3.5-5.1) mmol/L Glucose 102 H (74-99) mg/dL Calcium 8.3 L (8.4-10.2) mg/dL Assessment and Plan Plan: -Strangulated hernia clinical doing well and is being discharged today. And medical management as per primary service. 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 Resolved now -Asthma without any acute exacerbation patient inhaled steroids and as needed albuterol will be continued
[2017-09-10 14:18] VITALS: BP 156/81; PULSE 91; RESP 19; TEMP 98.4
--- NOTE | 2017-09-15 08:45 | CDI ---
Last Revision, May 2017 Documentation Clarification Form Date: 09/15/17 From: Cheryl Fuentes Phone: If you have a question regarding this query, please contact Katrin Tony at [phone] between 8am and 5pm Admit Date: 09/06/2017 9:39:00 PM Patient Name: Cande Magana Visit Number: [id number] Discharge Date: 09/10/17 ATTENTION: The Clinical Documentation Specialists (CDI) and [facility] Coding Staff appreciate your assistance in clarifying documentation. Please respond to the clarification below the line at the bottom and electronically sign. The CDI & [facility] Coding staff will review the response and follow-up if needed. Please note: Queries are made part of the Legal Health Record. If you have any questions, please contact the author of this message via ITS. Dr. Osman Smith Patient was admitted for incarcerated inguinal hernina with small bowel obstruction. Per documentation in the op note, the right inguinal hernia contained ischemic/necrtotic bowel. Patient history/risk factors: Right inguinal hernia with obstruction Clinical Indicators: Abdominal pain, leukocytosis, lactic acidosis Vital Signs: T. 97.6, P. 76, R. 18, BP 182/87 Lab: WBC 15.9 on admission and 18.1 on 09/07, Lactic acid 2.3 Other Clinical Indicators: Possible intra-abdominal infection. Treatment: IV Rocephin & Metronidazole. Small bowel resection. In your professional opinion, can you please clarify the findings of necrosis and ischemia of the small bowel? Gangrene Other, please specify Unable to determine It was both ischemic and necrotic as per my note MTDD
== END 2017-09-10 16:55 | disposition home or self-care (01) | DRG 330 ==
LOC: EC 18:56 → 3SUR 21:39
PROVIDERS: ADMIT Student in an Organized Health Care Education/Training Program; ATTEND Student in an Organized Health Care Education/Training Program
PROC: 0DBB0ZZ Excision of Ileum, Open Approach (ICD-10-PCS; 2017-09-06)
PROC: 0YQ50ZZ Repair Right Inguinal Region, Open Approach (ICD-10-PCS; principal; 2017-09-06 22:30)
DX: K40.30 Unilateral inguinal hernia, with obstruction, without gangrene, not specified as recurrent (principal); E22.2 Syndrome of inappropriate secretion of antidiuretic hormone; E87.6 Hypokalemia; R19.7 Diarrhea, unspecified; H40.9 Unspecified glaucoma; J45.909 Unspecified asthma, uncomplicated; R05 Cough; Z90.49 Acquired absence of other specified parts of digestive tract; Z90.710 Acquired absence of both cervix and uterus; Z98.49 Cataract extraction status, unspecified eye; Z96.1 Presence of intraocular lens; Z88.1 Allergy status to other antibiotic agents; Z79.899 Other long term (current) drug therapy
CPT/HCPCS: 36415; 74177; 80048; 80053; 81001; 82150; 83605; 83690; 85025; 85610; 85730; 86850; 86900; 86901; 88302; 88307; 93005; 94760; 96361; 96374; 96375; 96376; 99291

== ENCOUNTER → 2017-10-21 | Outpatient (CLI) | payer MEDICARE ==
[2017-10-21 13:29] LABS: T4, Free (Free Thyroxine) 1.27 ng/dL (0.78-2.19)
== END | disposition home or self-care (01) ==
LOC: LABWHC1 12:35
PROVIDERS: ATTEND Otolaryngology
DX: E04.1 Nontoxic single thyroid nodule (principal); J30.89 Other allergic rhinitis
CPT/HCPCS: 36415; 84439; 84443; 86376

== ENCOUNTER → 2017-11-03 | Outpatient (CLI) | payer MEDICARE ==
--- NOTE | 2017-11-03 10:14 | US ---
EXAMINATION TYPE: US thyroid st tissue head/neck DATE OF EXAM: 11/03/2017 COMPARISON: NONE CLINICAL HISTORY: E04.1 Thyroid Nodule. Patient states doctor felt lump. No thyroid medications. No previous US. GLAND SIZE: Right Lobe: 4.1 x 2.8 x 2.4 cm Overall Parenchyma: heterogenous Left Lobe: 3.6 x 1.6 x 1.7 cm Overall Parenchyma: heterogeneous Isthmus Thickness: 0.6 cm NODULES RIGHT: # of nodules measured on right: 1 1. 2.9 X 2.3 x 1.9 cm cystic nodule with internal echogenic lesion at the mid pole with well-define d margins. This nodule is taller than wide and shows no intranodular vascularity. Prior size: No previous LEFT: # of nodules measured on left: 1 1. 1.5 X 1.2 x 1.4 cm echogenic mixed nodule at the mid pole with well-defined margins. This nodul e is taller than wide and shows intranodular vascularity. Prior size: No previous ISTHMUS: # of nodules measured in the isthmus: 0 Bilateral neck scanned, no evidence of lymphadenopathy. 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
== END | disposition home or self-care (01) ==
LOC: RADUSWWP 08:17
PROVIDERS: ATTEND Otolaryngology
DX: E04.1 Nontoxic single thyroid nodule (principal)
CPT/HCPCS: 76536

== ENCOUNTER 2017-11-17 13:58 | Day surgery (SDC) | payer MEDICARE ==
[2017-11-17 14:15] VITALS: PULSE 80; RESP 20; TEMP 97.8
[2017-11-17 14:45] VITALS: BP 160/78
--- NOTE | 2017-11-17 15:04 | US ---
ULTRASOUND GUIDED FNA THYROID BIOPSY: CLINICAL HISTORY: Right thyroid cyst and solid left thyroid nodule FINDINGS: The procedure was explained to the patient. The risks, complications, benefits and alternatives were discussed and any questions were answered. Informed consent was obtained. Patient was placed supin e on the ultrasound table and prepped and draped in the usual sterile fashion. Utilizing a 25 gauge needle, five passes were made into the solid thyroid nodule requested. Single pass was made into the large right thyroid cyst which was aspirated and sample sent to pathology. Patient was stable throughout the procedure. Pathology is pending. All elements of maximal barrier and sterile technique were utilized. IMPRESSION: 1. Successful ultrasound guided FNA thyroid biopsy bilaterally.
== END 2017-11-17 15:05 | disposition home or self-care (01) ==
LOC: RADPROMAIN 13:58
PROVIDERS: ATTEND Otolaryngology
DX: E04.1 Nontoxic single thyroid nodule (principal)
CPT/HCPCS: 10022; 76942; 88173; 88305

== ENCOUNTER 2018-03-12 19:07 | Emergency (ER) | payer MEDICARE ==
[2018-03-12] MEDS ORDERED: SODIUM CHLORIDE 0.9% 1,000 ML IV STA (19:33)
[2018-03-12] MEDS ORDERED: LABETALOL 5 MG/ML VIAL MDV IVP STA (19:33)
[2018-03-12] MEDS ORDERED: SODIUM CHLORIDE 0.9% 500 ML IV STA (19:33)
--- NOTE | 2018-03-12 19:50 | ED ---
Recheck HPI - General Chief Complaint: Recheck/Abnormal Lab/Rx Stated Complaint: hypertension Time Seen by Provider: 03/12/18 19:32 Source: patient, RN notes reviewed, old records reviewed Mode of arrival: ambulatory Limitations: no limitations - History of Present Illness Initial Comments: This is an 81-year-old female the ER for evaluation of elevated blood pressure. Patient has no known history of high blood pressure still this is a new diagnosis for for her. Patient is asymptomatic denies headache chest pain shortness breath or abdominal pain complaints, no recent change in medications no drugs or alcohol abuse MD Complaint: other (Elevated blood pressure) -: hour(s) Symptoms Since Prior Visit: no new symptoms Associated Symptoms: none - Related Data Home Medications Medication Instructions Recorded Confirmed Brinzolamide/Brimonidine Tart 1 drop BOTH EYES BID 09/07/17 03/12/18 [Simbrinza 1%-0.2% Eye Drops] Latanoprost Ophth [Xalatan 0.005%] 1 drop BOTH EYES HS 09/07/17 03/12/18 Mometasone Furoate [Asmanex] 1 puff INHALATION RT-HS 09/07/17 03/12/18 Fexofenadine HCl [Analisa Allergy] 180 mg PO DAILY 03/12/18 03/12/18 Fluticasone Nasal [place] [Flonase 2 spr EA NOSTRIL DAILY 03/12/18 03/12/18 Nasal [place]] Montelukast [Singulair] 10 mg PO HS 03/12/18 03/12/18 Allergies Allergy/AdvReac Type Severity Reaction Status Date / Time azithromycin Allergy Unknown Verified 03/12/18 19:37 black pepper Allergy Unknown Verified 03/12/18 19:37 gluten Allergy Unknown Verified 03/12/18 19:37 lemon Allergy Unknown Verified 03/12/18 19:37 orange juice [[place]] Allergy Unknown Verified 03/12/18 19:37 shellfish derived [Shellfish] Allergy Unknown Verified 03/12/18 19:37 wheat Allergy Unknown Verified 03/12/18 19:37 Yeast Allergy Unknown Verified 03/12/18 19:37 Review of Systems ROS Statement: Those systems with pertinent positive or pertinent negative responses have been documented in the HPI. ROS Other: All systems not noted in ROS Statement are negative. Past Medical History Past Medical History: Asthma, Musculoskeletal Disorder Additional Past Medical History / Comment(s): glaucoma -bilateral eyes History of Any Multi-Drug Resistant Organisms: None Reported Past Surgical History: Back Surgery, Cholecystectomy, Hernia Repair, Hysterectomy Additional Past Surgical History / Comment(s): cataract, salivary gland removed, Past Anesthesia/Blood Transfusion Reactions: No Reported Reaction Past Psychological History: No Psychological Hx Reported Smoking Status: Never smoker Past Alcohol Use History: Rare Past Drug Use History: None Reported - Past Family History Mother Family Medical History: Cancer Additional Family Medical History / Comment(s): breast ca General Exam Limitations: no limitations General appearance: alert, in no apparent distress Head exam: Present: atraumatic, normocephalic, normal inspection Eye exam: Present: normal appearance, PERRL, EOMI. Absent: scleral icterus, conjunctival injection, periorbital swelling ENT exam: Present: normal exam, mucous membranes moist Neck exam: Present: normal inspection. Absent: tenderness, meningismus, lymphadenopathy Respiratory exam: Present: normal lung sounds bilaterally. Absent: respiratory distress, wheezes, rales, rhonchi, stridor Cardiovascular Exam: Present: regular rate, normal rhythm, normal heart sounds. Absent: systolic murmur, diastolic murmur, rubs, gallop, clicks GI/Abdominal exam: Present: soft, normal bowel sounds. Absent: distended, tenderness, guarding, rebound, rigid Extremities exam: Present: normal inspection, full ROM, normal capillary refill. Absent: tenderness, pedal edema, joint swelling, calf tenderness Back exam: Present: normal inspection Neurological exam: Present: alert, oriented X3, CN II-XII intact Psychiatric exam: Present: normal affect, normal mood Skin exam: Present: warm, dry, intact, normal color. Absent: rash Course Vital Signs 03/12/18 19:17 Temperature 97.9 F Pulse Rate 90 Respiratory 16 Rate Blood Pressure 202/120 O2 Sat by Pulse 98 Oximetry - Reevaluation(s) Reevaluation #1: 03/12/18 19:48 Medical records thoroughly reviewed Reevaluation #2: 03/12/18 19:48 Patient's blood pressure is much improved here in the ER, patient remains asymptomatic Medical Decision Making - Medical Decision Making 82 female the ER with new onset hypertension. Patient is labwork EKG here that are negative today. Remains asymptomatic. Blood pressure is controlled we'll start on blood pressure control - EKG Data -: EKG Interpreted by Me (EKG shows sinus rhythm rate of 79, MN 158, QRS 90, QTc 460) EKG shows normal: sinus rhythm Rate: normal Disposition Clinical Impression: Hypertension Disposition: HOME SELF-CARE Condition: Good Instructions: Hypertension (ED) Is patient prescribed a controlled substance at d/c from ED?: No Referrals: Osman Wolf MD [Primary Care Provider] - 1-2 days
[2018-03-12 19:59] LABS: Basophils % (A) 1 %; Eosinophils # (A) 0.2 k/uL (0-0.7); Eosinophils % (A) 3 %; HCT 40.4 % (34.0-46.0); HGB 13.4 gm/dL (11.4-16.0); Lymphocytes % (A) 28 %; MCH 30.3 pg (25.0-35.0); MCHC 33.1 g/dL (31.0-37.0); MCV 91.5 fL (80.0-100.0); Mean Platelet Volume 6.8; Monocytes # (A) 0.4 k/uL (0-1.0); Monocytes % (A) 6 %; Neutrophils # (A) 4.1 k/uL (1.3-7.7); Neutrophils % (A) 59 %; Platelet Count 272 k/uL (150-450); RBC 4.42 m/uL (3.80-5.40); RDW 14.6 % (11.5-15.5)
[2018-03-12 20:03] LABS: Albumin 4.3 g/dL (3.5-5.0); Calcium 9.8 mg/dL (8.4-10.2); Magnesium 1.7 mg/dL (1.6-2.3); Phosphorus 4.1 mg/dL (2.5-4.5); Total Bilirubin 0.8 mg/dL (0.2-1.3); Total Protein 7.4 g/dL (6.3-8.2)
[2018-03-12 20:13] LABS: Potassium 4.9 mmol/L (3.5-5.1)
[2018-03-12 20:18] LABS: Creatine Kinase MB 0.8 ng/mL (0.0-2.4); Troponin I 0.014 ng/mL (0.000-0.034)
[2018-03-12 21:03] VITALS: BP 158/82; PULSE 62; RESP 19; TEMP 98.2
== END 2018-03-12 21:02 | disposition home or self-care (01) ==
LOC: EC 19:07
DX: I10 Essential (primary) hypertension (principal); J45.909 Unspecified asthma, uncomplicated; H40.9 Unspecified glaucoma; Z79.51 Long term (current) use of inhaled steroids; Z79.899 Other long term (current) drug therapy; Z88.1 Allergy status to other antibiotic agents; Z91.018 Allergy to other foods; Z91.013 Allergy to seafood
CPT/HCPCS: 36415; 80053; 82550; 82553; 83735; 84100; 84443; 84484; 85025; 93005; 96361; 96374; 99284

== ENCOUNTER 2018-03-15 17:14 | Observation (INO) | payer MEDICARE ==
[2018-03-15 18:04] LABS: Glucose,Whole Blood 130 mg/dL (75-99)
[2018-03-15 18:41] LABS: Basophils % (A) 1 %; Eosinophils # (A) 0.2 k/uL (0-0.7); Eosinophils % (A) 3 %; HGB 12.7 gm/dL (11.4-16.0); Lymphocytes # (A) 2.1 k/uL (1.0-4.8); Lymphocytes % (A) 29 %; MCH 30.1 pg (25.0-35.0); MCHC 33.5 g/dL (31.0-37.0); Mean Platelet Volume 6.9; Monocytes # (A) 0.5 k/uL (0-1.0); Monocytes % (A) 7 %; Neutrophils # (A) 4.2 k/uL (1.3-7.7); Neutrophils % (A) 58 %; Platelet Count 261 k/uL (150-450); RBC 4.22 m/uL (3.80-5.40); RDW 14.6 % (11.5-15.5); WBC 7.2 k/uL (3.8-10.6)
[2018-03-15 18:47] LABS: Prothrombin Time 9.9 sec (9.0-12.0)
[2018-03-15 18:52] LABS: Albumin 3.8 g/dL (3.5-5.0); Calcium 9.6 mg/dL (8.4-10.2); Magnesium 1.6 mg/dL (1.6-2.3); Potassium 3.8 mmol/L (3.5-5.1); Total Bilirubin 0.4 mg/dL (0.2-1.3); Total Protein 6.7 g/dL (6.3-8.2)
--- NOTE | 2018-03-15 18:53 | ED ---
General Adult HPI - General Chief complaint: Recheck/Abnormal Lab/Rx Stated complaint: POSS CVA WEAKNESS Time Seen by Provider: 03/15/18 18:00 Source: patient, family, RN notes reviewed Mode of arrival: wheelchair Limitations: no limitations - History of Present Illness Initial comments: This is a 82-year-old female who was brought in for evaluation because she doesn 't feel well. She states she had some increased blood pressure 3 days ago seen in emergency department given medication this more she states she took blood pressure medication she felt herbal at work she also states she was dragging her left leg. This seems to resolve now. She denies any headache dizziness blurry vision nausea vomiting sweats or other symptoms she does states she felt unsteady however when she was try to walk to the emergency department. - Related Data Home Medications Medication Instructions Recorded Confirmed Brinzolamide/Brimonidine Tart 1 drop BOTH EYES BID 09/07/17 03/15/18 [Simbrinza 1%-0.2% Eye Drops] Latanoprost Ophth [Xalatan 0.005%] 1 drop BOTH EYES HS 09/07/17 03/15/18 Mometasone Furoate [Asmanex] 1 puff INHALATION RT-HS 09/07/17 03/15/18 Fexofenadine HCl [Analisa Allergy] 180 mg PO DAILY 03/12/18 03/15/18 Fluticasone Nasal [place] [Flonase 2 spr EA NOSTRIL DAILY 03/12/18 03/15/18 Nasal [place]] Montelukast [Singulair] 10 mg PO HS 03/12/18 03/15/18 Ibuprofen [Motrin Ib] 200 mg PO DAILY 03/15/18 03/15/18 Previous Rx's Medication Instructions Recorded Lisinopril-Hctz 10-12.5 mg 1 tab PO DAILY #30 tab 03/12/18 [Zestoretic 10-12.5] Allergies Allergy/AdvReac Type Severity Reaction Status Date / Time azithromycin Allergy Unknown Verified 03/15/18 18:34 black pepper Allergy Unknown Verified 03/15/18 18:34 gluten Allergy Unknown Verified 03/15/18 18:34 lemon Allergy Unknown Verified 03/15/18 18:34 orange juice [[place]] Allergy Unknown Verified 03/15/18 18:34 shellfish derived [Shellfish] Allergy Unknown Verified 03/15/18 18:34 wheat Allergy Unknown Verified 03/15/18 18:34 Yeast Allergy Unknown Verified 03/15/18 18:34 Review of Systems ROS Statement: Those systems with pertinent positive or pertinent negative responses have been documented in the HPI. ROS Other: All systems not noted in ROS Statement are negative. Past Medical History Past Medical History: Asthma, Musculoskeletal Disorder Additional Past Medical History / Comment(s): glaucoma -bilateral eyes History of Any Multi-Drug Resistant Organisms: None Reported Past Surgical History: Back Surgery, Cholecystectomy, Hernia Repair, Hysterectomy Additional Past Surgical History / Comment(s): cataract, salivary gland removed, Past Anesthesia/Blood Transfusion Reactions: No Reported Reaction Past Psychological History: No Psychological Hx Reported Smoking Status: Never smoker Past Alcohol Use History: Rare Past Drug Use History: None Reported - Past Family History Mother Family Medical History: Cancer Additional Family Medical History / Comment(s): breast ca General Exam - General Exam Comments Initial Comments: This is a well-developed well-nourished awake alert oriented 2 female Limitations: no limitations General appearance: alert, in no apparent distress Head exam: Present: atraumatic, normocephalic, normal inspection Eye exam: Present: normal appearance, PERRL, EOMI. Absent: scleral icterus, conjunctival injection, periorbital swelling ENT exam: Present: normal exam, mucous membranes moist Neck exam: Present: normal inspection, full ROM. Absent: tenderness, meningismus, lymphadenopathy Respiratory exam: Present: normal lung sounds bilaterally. Absent: respiratory distress, wheezes, rales, rhonchi, stridor Cardiovascular Exam: Present: regular rate, normal rhythm, normal heart sounds. Absent: systolic murmur, diastolic murmur, rubs, gallop, clicks GI/Abdominal exam: Present: soft, normal bowel sounds. Absent: distended, tenderness, guarding, rebound, rigid Extremities exam: Present: normal inspection, full ROM, normal capillary refill. Absent: tenderness, pedal edema, joint swelling, calf tenderness Back exam: Present: normal inspection Neurological exam: Present: alert, oriented X3, CN II-XII intact Psychiatric exam: Present: normal affect, normal mood Skin exam: Present: warm, dry, intact, normal color. Absent: rash Course Vital Signs 03/15/18 17:20 Temperature 97.6 F Pulse Rate 88 Respiratory 20 Rate Blood Pressure 137/78 O2 Sat by Pulse 97 Oximetry Medical Decision Making - Medical Decision Making Reevaluation patient reveals no further symptoms the presentation is consistent with a TIA did discuss case with the patient and family members patient be admitted for inpatient treatment and evaluation - Lab Data Result diagrams: 03/15/18 17:57 03/15/18 17:57 Lab Results 03/15/18 03/15/18 03/15/18 Range/Units 17:57 17:57 17:57 WBC 7.2 (3.8-10.6) k/uL RBC 4.22 (3.80-5.40) m/uL Hgb 12.7 (11.4-16.0) gm/dL Hct 38.0 (34.0-46.0) % MCV 90.0 (80.0-100.0) fL MCH 30.1 (25.0-35.0) pg MCHC 33.5 (31.0-37.0) g/dL RDW 14.6 (11.5-15.5) % Plt Count 261 (150-450) k/uL Neutrophils % 58 % Lymphocytes % 29 % Monocytes % 7 % Eosinophils % 3 % Basophils % 1 % Neutrophils # 4.2 (1.3-7.7) k/uL Lymphocytes # 2.1 (1.0-4.8) k/uL Monocytes # 0.5 (0-1.0) k/uL Eosinophils # 0.2 (0-0.7) k/uL Basophils # 0.0 (0-0.2) k/uL PT (9.0-12.0) sec INR (<1.2) APTT (22.0-30.0) sec Sodium 131 L (137-145) mmol/L Potassium 3.8 (3.5-5.1) mmol/L Chloride 101 (98-107) mmol/L Carbon Dioxide 20 L (22-30) mmol/L Anion Gap 10 mmol/L BUN 24 H (7-17) mg/dL Creatinine 0.95 (0.52-1.04) mg/dL Est GFR (CKD-EPI)AfAm 64 (>60 ml/min/1.73 sqM) Est GFR (CKD-EPI)NonAf 56 (>60 ml/min/1.73 sqM) Glucose 127 H (74-99) mg/dL POC Glucose (mg/dL) (75-99) mg/dL POC Glu Chief Steward/Stewardess ID Calcium 9.6 (8.4-10.2) mg/dL Magnesium 1.6 (1.6-2.3) mg/dL Total Bilirubin 0.4 (0.2-1.3) mg/dL AST 19 (14-36) U/L ALT 23 (9-52) U/L Alkaline Phosphatase 52 (38-126) U/L Total Creatine Kinase 64 (30-135) U/L CK-MB (CK-2) 0.9 (0.0-2.4) ng/mL CK-MB (CK-2) Rel Index 1.4 Troponin I <0.012 (0.000-0.034) ng/mL Total Protein 6.7 (6.3-8.2) g/dL Albumin 3.8 (3.5-5.0) g/dL Urine Color Urine Appearance (Clear) Urine pH (5.0-8.0) Ur Specific Stewart (1.001-1.035) Urine Protein (Negative) Urine Glucose (UA) (Negative) Urine Ketones (Negative) Urine Blood (Negative) Urine Nitrite (Negative) Urine Bilirubin (Negative) Urine Urobilinogen (<2.0) mg/dL Ur Leukocyte Esterase (Negative) Urine RBC (0-5) /hpf Urine WBC (0-5) /hpf Hyaline Casts (0-2) /lpf Urine Mucus (None) /hpf 03/15/18 03/15/18 03/15/18 Range/Units 17:57 17:58 18:59 WBC (3.8-10.6) k/uL RBC (3.80-5.40) m/uL Hgb (11.4-16.0) gm/dL Hct (34.0-46.0) % MCV (80.0-100.0) fL MCH (25.0-35.0) pg MCHC (31.0-37.0) g/dL RDW (11.5-15.5) % Plt Count (150-450) k/uL Neutrophils % % Lymphocytes % % Monocytes % % Eosinophils % % Basophils % % Neutrophils # (1.3-7.7) k/uL Lymphocytes # (1.0-4.8) k/uL Monocytes # (0-1.0) k/uL Eosinophils # (0-0.7) k/uL Basophils # (0-0.2) k/uL PT 9.9 (9.0-12.0) sec INR 1.0 (<1.2) APTT 24.0 (22.0-30.0) sec Sodium (137-145) mmol/L Potassium (3.5-5.1) mmol/L Chloride (98-107) mmol/L Carbon Dioxide (22-30) mmol/L Anion Gap mmol/L BUN (7-17) mg/dL Creatinine (0.52-1.04) mg/dL Est GFR (CKD-EPI)AfAm (>60 ml/min/1.73 sqM) Est GFR (CKD-EPI)NonAf (>60 ml/min/1.73 sqM) Glucose (74-99) mg/dL POC Glucose (mg/dL) 130 H (75-99) mg/dL POC Glu Chief Steward/Stewardess EDGARD Jason Khan Calcium (8.4-10.2) mg/dL Magnesium (1.6-2.3) mg/dL Total Bilirubin (0.2-1.3) mg/dL AST (14-36) U/L ALT (9-52) U/L Alkaline Phosphatase (38-126) U/L Total Creatine Kinase (30-135) U/L CK-MB (CK-2) (0.0-2.4) ng/mL CK-MB (CK-2) Rel Index Troponin I (0.000-0.034) ng/mL Total Protein (6.3-8.2) g/dL Albumin (3.5-5.0) g/dL Urine Color Light Yellow Urine Appearance Clear (Clear) Urine pH 5.0 (5.0-8.0) Ur Specific Stewart 1.006 (1.001-1.035) Urine Protein Negative (Negative) Urine Glucose (UA) Negative (Negative) Urine Ketones Negative (Negative) Urine Blood Negative (Negative) Urine Nitrite Negative (Negative) Urine Bilirubin Negative (Negative) Urine Urobilinogen <2.0 (<2.0) mg/dL Ur Leukocyte Esterase Small H (Negative) Urine RBC 1 (0-5) /hpf Urine WBC 23 H (0-5) /hpf Hyaline Casts 1 (0-2) /lpf Urine Mucus Rare H (None) /hpf - Radiology Data Radiology results: report reviewed (I did review the imaging and reports no acute findings.), image reviewed Disposition Clinical Impression: TIA (transient ischemic attack) Disposition: ADMITTED IP TO THIS HOSP Condition: Stable Referrals: Osman Wolf MD [Primary Care Provider] - 1-2 days
[2018-03-15 18:57] LABS: Creatine Kinase 64 U/L (30-135)
[2018-03-15 19:11] LABS: Creatine Kinase MB 0.9 ng/mL (0.0-2.4); Troponin I <0.012 ng/mL (0.000-0.034)
[2018-03-15 19:29] LABS: Appearance,Urine Clear (Clear); Bilirubin,Urine Negative (Negative); Blood,Urine Negative (Negative); Color,Urine Light Yellow; Glucose,Urine (UA) Negative (Negative); Hyaline Casts,Urine 1 /lpf (0-2); Ketones,Urine Negative (Negative); Leukocyte Esterase,Urine Small (Negative); Mucus,Urine Rare /hpf; Nitrite,Urine Negative (Negative); Protein,Urine Negative (Negative); RBC,Urine 1 /hpf (0-5); Specific Gravity,Urine 1.006 (1.001-1.035); Urobilinogen,Urine <2.0 mg/dL (<2.0); WBC,Urine 23 /hpf (0-5)
--- NOTE | 2018-03-15 19:46 | CT ---
EXAMINATION: CT brain wo con DATE AND TIME: 03/15/2018 7:11 PM CLINICAL INDICATION: Neuro Deficits Left leg weakness. TECHNIQUE: Standard departmental protocol. COMPARISON: None. FINDINGS: The calvarium is intact. There is no intracranial hemorrhage. There is no intracranial mass or mass effect. No definite new intra-axial or extra-axial attenuation defect. The paranasal sinuses, middle ear cavities, and mastoid sinus air cells are clear. The orbits are unremarkable. IMPRESSION: NO ACUTE PROCESS.
--- NOTE | 2018-03-15 19:51 | XR ---
EXAMINATION: XR chest 2V DATE AND TIME: 03/15/2018 7:20 PM CLINICAL INDICATION: altered mental status TECHNIQUE: PA and lateral COMPARISON: 03/31/2011 FINDINGS: The lungs are clear. The pleural spaces are negative. The cardiac silhouette is not enlarged. The remainder of the mediastinal silhouette is unremarkable. The skeletal structures and soft tissues are negative for acute findings. IMPRESSION: NO ACUTE PROCESS.
[2018-03-15] MEDS ORDERED: SODIUM CHLORIDE 0.9% 1,000 ML IV SCH (23:00)
[2018-03-16 00:24] VITALS: BMI 22.8
[2018-03-16 01:32] LABS: Cholesterol 225 mg/dL (<200); HDL Cholesterol 74 mg/dL (40-60); LDL Cholesterol,Calculated 130 mg/dL (0-99); Triglycerides 104 mg/dL (<150)
[2018-03-16] MEDS ORDERED: CLOPIDOGREL 75 MG TAB PO SCH (09:00)
[2018-03-16] MEDS ORDERED: LORATADINE 10 MG TAB PO SCH (09:00)
[2018-03-16] MEDS ORDERED: NON-FORMULARY DRUG (Brinzolamide/Brimonidine Tart [Simbrinza 1%-0.2% Eye Drops] 1 DROP) BOTH EYES SCH (09:00)
[2018-03-16] MEDS ORDERED: FLUTICASONE 50MCG/SPRAY NASAL 16GM EA NOSTRIL SCH (09:00)
[2018-03-16] MEDS ORDERED: LISINOPRIL-HCTZ 10-12.5 MG 1 EACH TAB PO SCH (09:00)
[2018-03-16 10:43] VITALS: RESP 20
[2018-03-16 12:00] VITALS: BP 112/64; PULSE 82; TEMP 97.7
--- NOTE | 2018-03-16 15:52 | P.DS ---
Providers Date of admission: 03/15/18 22:20 Attending physician: Osman Wolf Consults: 03/15/18 22:56 Consult Physician Routine Consulting Provider: Fernanda Krause Consult Reason/Comments: TIA Do you want consulting provider notified?: Yes Primary care physician: Osman Wolf Hospital Course: Please refer to my HPI Patient Condition at Discharge: Stable Plan - Discharge Summary Discharge Rx Participant: No New Discharge Prescriptions: New Aspirin 81 mg PO DAILY #30 chewable Atorvastatin Calcium [Lipitor] 20 mg PO HS #30 tab Lisinopril [Zestril] 5 mg PO DAILY #30 tab Discontinued Lisinopril-Hctz 10-12.5 mg [Zestoretic 10-12.5] 1 tab PO DAILY #30 tab No Action Mometasone Furoate [Asmanex] 1 puff INHALATION RT-HS Latanoprost Ophth [Xalatan 0.005%] 1 drop BOTH EYES HS Brinzolamide/Brimonidine Tart [Simbrinza 1%-0.2% Eye Drops] 1 drop BOTH EYES BID Montelukast [Singulair] 10 mg PO HS Fluticasone Nasal [place] [Flonase Nasal [place]] 2 spr EA NOSTRIL DAILY Fexofenadine HCl [Analisa Allergy] 180 mg PO DAILY Ibuprofen [Motrin Ib] 200 mg PO DAILY Discharge Medication List Brinzolamide/Brimonidine Tart [Simbrinza 1%-0.2% Eye Drops] 1 drop BOTH EYES BID 09/07/17 [History] Latanoprost Ophth [Xalatan 0.005%] 1 drop BOTH EYES HS 09/07/17 [History] Mometasone Furoate [Asmanex] 1 puff INHALATION RT-HS 09/07/17 [History] Fexofenadine HCl [Analisa Allergy] 180 mg PO DAILY 03/12/18 [History] Fluticasone Nasal [place] [Flonase Nasal [place]] 2 spr EA NOSTRIL DAILY 03/12/18 [ History] Montelukast [Singulair] 10 mg PO HS 03/12/18 [History] Ibuprofen [Motrin Ib] 200 mg PO DAILY 03/15/18 [History] Aspirin 81 mg PO DAILY #30 chewable 03/16/18 [Rx] Atorvastatin Calcium [Lipitor] 20 mg PO HS #30 tab 03/16/18 [Rx] Lisinopril [Zestril] 5 mg PO DAILY #30 tab 03/16/18 [Rx] Follow up Appointment(s)/Referral(s): Osman Wolf MD [Primary Care Provider] - 03/25/18 10:40 am () Fernanda Krause MD [STAFF PHYSICIAN] - 1 Week (Spoke to cashier receptionist. Office will call with appointment time) Patient Instructions/Handouts: Transient Ischemic Attack (DC) Discharge Disposition: HOME SELF-CARE
--- NOTE | 2018-03-16 15:52 | P.HPIM ---
History of Present Illness 82-year-old female came in with complaints of tingling and numbness in the left foot and left side of the face no other weakness no speech abnormality no facial droop. Patient believes she was dragging her leg but the the bystanders said she is walking fine. Patient had a CAT scan of the head which did not show any stroke of CVA patient's symptomology is not consistent with cerebrovascular accident or TIA. She does have chronic low back pain for which she underwent laminectomy patient is ablating well in the hallways. Patient has very's nonspecific mild tingling numbness in the lower jaw on the left side. Since patient's symptomology is not consistent with CVA or TIA patient will be discharged to follow up with neurology PCP as an outpatient outpatient carotid Doppler and echocardiogram will be obtained patient will be started on aspirin LDL is bit elevated patient will be started on a statin. Patient was started on antidepressant medication recently which is her lisinopril and had a floor thiazide patient is hyponatremic secondary to hydrochlorothiazide which will be discontinued lisinopril dose will be lowered because of low normal blood pressures here in the hospital. Patient felt a bit dizzy at home after taking this medication Review of Systems REVIEW OF SYSTEMS: CONSTITUTIONAL: No fever, no malaise, no fatigue. HEENT: No recent visual problems or hearing problems. Denied any sore throat. CARDIOVASCULAR: No chest pain, orthopnea, PND, no palpitations, no syncope. PULMONARY: No shortness of breath, no cough, no hemoptysis. GASTROINTESTINAL: No diarrhea, no nausea, no vomiting, no abdominal pain. Normoactive bowel sounds. NEUROLOGICAL: No headaches, no weakness, HEMATOLOGICAL: Denies any bleeding or petechiae. GENITOURINARY: Denies any burning micturition, frequency, or urgency. MUSCULOSKELETAL/RHEUMATOLOGICAL: Denies any joint pain, swelling, or any muscle pain. ENDOCRINE: Denies any polyuria or polydipsia. The rest of the 14-point review of systems is negative. Past Medical History Past Medical History: Asthma, Hyperlipidemia Additional Past Medical History / Comment(s): glaucoma -bilateral eyes History of Any Multi-Drug Resistant Organisms: None Reported Past Surgical History: Back Surgery, Cholecystectomy, Hernia Repair, Hysterectomy Additional Past Surgical History / Comment(s): cataract, salivary gland removed, Past Anesthesia/Blood Transfusion Reactions: No Reported Reaction Past Psychological History: No Psychological Hx Reported Smoking Status: Never smoker Past Alcohol Use History: Rare Past Drug Use History: None Reported - Past Family History Mother Family Medical History: Cancer Additional Family Medical History / Comment(s): breast ca Medications and Allergies Home Medications Medication Instructions Recorded Confirmed Type Brinzolamide/Brimonidine Tart 1 drop BOTH EYES BID 09/07/17 03/15/18 History [Simbrinza 1%-0.2% Eye Drops] Latanoprost Ophth [Xalatan 0.005%] 1 drop BOTH EYES HS 09/07/17 03/15/18 History Mometasone Furoate [Asmanex] 1 puff INHALATION RT-HS 09/07/17 03/15/18 History Fexofenadine HCl [Analisa Allergy] 180 mg PO DAILY 03/12/18 03/15/18 History Fluticasone Nasal [place] [Flonase 2 spr EA NOSTRIL DAILY 03/12/18 03/15/18 History Nasal [place]] Montelukast [Singulair] 10 mg PO HS 03/12/18 03/15/18 History Ibuprofen [Motrin Ib] 200 mg PO DAILY 03/15/18 03/15/18 History Aspirin 81 mg PO DAILY #30 chewable 03/16/18 Rx Atorvastatin Calcium [Lipitor] 20 mg PO HS #30 tab 03/16/18 Rx Lisinopril [Zestril] 5 mg PO DAILY #30 tab 03/16/18 Rx Allergies Allergy/AdvReac Type Severity Reaction Status Date / Time azithromycin Allergy Unknown Verified 03/15/18 18:34 black pepper Allergy Unknown Verified 03/15/18 18:34 gluten Allergy Unknown Verified 03/15/18 18:34 lemon Allergy Unknown Verified 03/15/18 18:34 orange juice [[place]] Allergy Unknown Verified 03/15/18 18:34 shellfish derived [Shellfish] Allergy Unknown Verified 03/15/18 18:34 wheat Allergy Unknown Verified 03/15/18 18:34 Yeast Allergy Unknown Verified 03/15/18 18:34 Physical Exam Vitals: Vital Signs Temp Pulse Pulse Resp BP BP Pulse Ox 03/16/18 11:59 97.7 F 82 20 112/64 98 03/16/18 08:00 98.5 F 78 20 156/67 98 03/16/18 04:00 97.9 F 84 17 128/68 96 03/16/18 00:00 98.0 F 67 17 126/50 99 03/15/18 23:00 72 18 162/95 99 03/15/18 22:56 82 30 H 162/95 79 L 03/15/18 17:20 97.6 F 88 20 137/78 97 Intake and Output 03/16/18 03/16/18 03/16/18 06:59 14:59 22:59 Intake Total 50 480 Output Total 600 Balance 50 -120 Intake: IV 20 Invasive Line 1 20 Amount of Fluid Infused ( 30 ml) Oral 480 Output: Urine 600 Other: Voiding Method Toilet # Voids 2 Weight 58.5 kg PHYSICAL EXAMINATION: GENERAL: The patient is alert and oriented x3, not in any acute distress. Well developed, well nourished. HEENT: Pupils are round and equally reacting to light. EOMI. No scleral icterus. No conjunctival pallor. Normocephalic, atraumatic. No pharyngeal erythema. No thyromegaly. CARDIOVASCULAR: S1 and S2 present. No murmurs, rubs, or gallops. PULMONARY: Chest is clear to auscultation, no wheezing or crackles. ABDOMEN: Soft, nontender, nondistended, normoactive bowel sounds. No palpable organomegaly. MUSCULOSKELETAL: No joint swelling or deformity. EXTREMITIES: No cyanosis, clubbing, or pedal edema. NEUROLOGICAL: Gross neurological examination did not reveal any focal deficits. SKIN: No rashes. Results CBC & Chem 7: 03/15/18 17:57 03/15/18 17:57 Labs: Abnormal Lab Results - Last 24 Hours (Table) 03/15/18 03/15/18 03/15/18 Range/Units 17:57 17:57 17:58 Sodium 131 L (137-145) mmol/L Carbon Dioxide 20 L (22-30) mmol/L BUN 24 H (7-17) mg/dL Glucose 127 H (74-99) mg/dL POC Glucose (mg/dL) 130 H (75-99) mg/dL Cholesterol 225 H (<200) mg/dL LDL Cholesterol, Calc 130 H (0-99) mg/dL HDL Cholesterol 74 H (40-60) mg/dL Ur Leukocyte Esterase (Negative) Urine WBC (0-5) /hpf Urine Mucus (None) /hpf 10/15/18 Range/Units 18:59 Sodium (137-145) mmol/L Carbon Dioxide (22-30) mmol/L BUN (7-17) mg/dL Glucose (74-99) mg/dL POC Glucose (mg/dL) (75-99) mg/dL Cholesterol (<200) mg/dL LDL Cholesterol, Calc (0-99) mg/dL HDL Cholesterol (40-60) mg/dL Ur Leukocyte Esterase Small H (Negative) Urine WBC 23 H (0-5) /hpf Urine Mucus Rare H (None) /hpf Thrombosis Risk Factor Assmnt - Choose All That Apply Any of the Below Risk Factors Present?: No Other Risk Factors: Yes Each Risk Factor Represents 3 Points: Age 75 years or older Thrombosis Risk Factor Assessment Total Risk Factor Score: 3 Thrombosis Risk Factor Assessment Level: Moderate Risk Assessment and Plan Plan: -Tingling and numbness in the left foot without any weakness and do not believe patient has foot drop or CVA or stroke this is secondary to local nerve causes and degenerative back disease. will be discharged today further workup as mentioned above as an outpatient -Hypertension patient is bit hypotensive with the dizziness symptoms recently started on antidepressant medication as mentioned above changes and antidepressive medications as mentioned above -Asthma without any acute exacerbation -Hyperlipidemia patient will be started on a statin -Chronic low back pain with back surgery in the past Plan as mentioned in the history itself and will be discharged today.
[2018-03-16] MEDS ORDERED: FLUTICASONE 110 MCG INHALER INHALATION SCH (20:00)
[2018-03-16] MEDS ORDERED: LATANOPROST 0.005% OPHTH DROPS 2.5 ML BTL BOTH EYES SCH (21:00)
[2018-03-16] MEDS ORDERED: MONTELUKAST 10 MG TAB PO SCH (21:00)
[2018-03-16] MEDS ORDERED: ASPIRIN 325 MG TAB PO SCH (22:59)
[2018-03-17] MEDS ORDERED: LISINOPRIL 10 MG TAB PO SCH (09:00)
--- NOTE | 2018-03-18 11:05 | ECHOF ---
Referral Reason:syncope MEASUREMENTS -------- HEIGHT: 160.0 cm WEIGHT: 58.1 kg BP: 112/64 RVIDd: 2.5 cm (< 3.3) IVSd: 1.1 cm (0.6 - 1.1) LVIDd: 3.6 cm (3.9 - 5.3) LVPWd: 0.9 cm (0.6 - 1.1) IVSs: 1.3 cm LVIDs: 2.5 cm LVPWs: 1.3 cm LA Diam: 3.4 cm (2.7 - 3.8) LAESV Index (A-L): 22.19 ml/m Ao Diam: 2.8 cm (2.0 - 3.7) AV Cusp: 1.4 cm (1.5 - 2.6) LA Diam: 3.9 cm (2.7 - 3.8) MV EXCURSION: 10.412 mm (> 18.000) MV EF SLOPE: 69 mm/s (70 - 150) EPSS: 0.2 cm MV E Kb: 0.36 m/s MV DecT: 282 ms MV A Kb: 0.72 m/s MV E/A Ratio: 0.50 RAP: 5.00 mmHg RVSP: 22.61 mmHg FINDINGS -------- Sinus rhythm. This was a technically adequate study. LV size, wall thickness and systolic function are normal, with an EF greater than 55%. The left yola tricular size is normal. The right ventricle is normal in size. The left atrial size is normal. The right atrial size is normal. There is mild aortic valve sclerosis. There is no evidence of aortic regurgitation. Mild mitral annular calcification present. Mild mitral regurgitation is present. Mild tricuspid regurgitation present. There is no evidence of pulmonary hypertension. The right v entricular systolic pressure, as measured by Doppler, is 22.61mmHg. Trace/mild (physiologic) pulmonic regurgitation. The aortic root size is normal. There is no pericardial effusion. CONCLUSIONS -------- 1. LV size, wall thickness and systolic function are normal, with an EF greater than 55%. 2. The left ventricular size is normal. 3. The right ventricle is normal in size. 4. The left atrial size is normal. 5. The right atrial size is normal. 6. There is mild aortic valve sclerosis. 7. Mild mitral annular calcification present. 8. Mild mitral regurgitation is present. 9. Mild tricuspid regurgitation present. 10. There is no evidence of pulmonary hypertension. 11. The right ventricular systolic pressure, as measured by Doppler, is 22.61mmHg. 12. Trace/mild (physiologic) pulmonic regurgitation. 13. The aortic root size is normal. 14. There is no pericardial effusion. [employer] SEWER: Kathy Rangel RDCS
== END 2018-03-16 15:16 | disposition home or self-care (01) ==
LOC: EC 17:14 → 3SCARD 22:20
PROVIDERS: ADMIT Family Medicine; ATTEND Family Medicine
DX: R20.2 Paresthesia of skin (principal); R20.0 Anesthesia of skin; G89.29 Other chronic pain; M54.5 Low back pain; I10 Essential (primary) hypertension; I95.9 Hypotension, unspecified; E87.1 Hypo-osmolality and hyponatremia; J45.909 Unspecified asthma, uncomplicated; E78.5 Hyperlipidemia, unspecified; M51.36 Other intervertebral disc degeneration, lumbar region; T50.2X5A Adverse effect of carbonic-anhydrase inhibitors, benzothiadiazides and other diuretics, initial encounter; H40.9 Unspecified glaucoma; Z80.3 Family history of malignant neoplasm of breast; Z79.899 Other long term (current) drug therapy; Z79.82 Long term (current) use of aspirin; Z79.1 Long term (current) use of non-steroidal anti-inflammatories (NSAID); Z88.1 Allergy status to other antibiotic agents; Z91.013 Allergy to seafood; Z91.018 Allergy to other foods; Z90.49 Acquired absence of other specified parts of digestive tract
CPT/HCPCS: 99285; 36415; 93005; 93306; 97162; 92523; 80061; 80053; 82550; 82553; 83735; 84484; 85025; 85610; 85730; 81001; 71046; 70450; G0378 ×2

== ENCOUNTER → 2018-03-22 | Outpatient (CLI) | payer MEDICARE ==
--- NOTE | 2018-03-22 13:05 | US ---
EXAMINATION TYPE: US carotid duplex BILAT DATE OF EXAM: 03/22/2018 COMPARISON: NONE CLINICAL HISTORY: G45.9 TIA. EXAM MEASUREMENTS: RIGHT: Peak Systolic Velocity (PSV) cm/sec ----- Right CCA: 72.8 ----- Right ICA: 80.3 ----- Right ECA: 89.2 ICA/CCA ratio: 1.1 RIGHT: End Diastole cm/sec ----- Right CCA: 21.0 ----- Right ICA: 26.0 ----- Right ECA: 12.1 LEFT: Peak Systolic Velocity (PSV) cm/sec ----- Left CCA: 66.8 ----- Left ICA: 114.8 ----- Left ECA: 96.4 ICA/CCA ratio: 1.7 LEFT: End Diastole cm/sec ----- Left CCA: 22.8 ----- Left ICA: 34.5 ----- Left ECA: 12.3 VERTEBRALS (direction of flow): Right Vertebral: Antegrade Left Vertebral: Antegrade Rhythm: Normal Atherosclerotic changes bilateral bulbs; mild in right and moderate/severe in left bulb extending int o left ICA IMPRESSION: 1. Atherosclerotic changes bilaterally with findings suggestive of no significant hemodynamic stenosi s by carotid Doppler ultrasound. Criteria for Assigning % of Stenosis / Diameter reduction (Estimation based on the indirect measurements of the internal carotid artery velocities (ICA PSV). 1. Normal (no stenosis)=ICA PSV < 125 cm/s: ratio < 2.0: ICA EDV<40 cm/s. 2. Less than 50% stenosis=ICA PSV < 125 cm/s: ratio < 2.0: ICA EDV<40 cm/s. 3. 50 to 69% stenosis=ICA PSV of 125 to 230 cm/s: ration 2.0 ? 4.0: ICA EDV 40-100 cm/s. 4. Greater than 70% stenosis to near occlusion= ICA PSV > 230 cm/s: ratio > 4.0: ICA EDV > 100 cm/s. 5. Near occlusion= ICA PSV velocities may be low or undetectable: variable ratio and ICA EDV. 6. Total occlusion=unable to detect flow.
== END | disposition home or self-care (01) ==
LOC: RADUSMAIN 12:17
PROVIDERS: ATTEND Family Medicine
DX: I65.23 Occlusion and stenosis of bilateral carotid arteries (principal); Z86.73 Personal history of transient ischemic attack (TIA), and cerebral infarction without residual deficits
CPT/HCPCS: 93880

== ENCOUNTER → 2018-05-21 | Outpatient (CLI) | payer MEDICARE ==
--- NOTE | 2018-05-21 15:46 | US ---
EXAMINATION TYPE: US thyroid st tissue head/neck DATE OF EXAM: 05/21/2018 COMPARISON: US 2018 CLINICAL HISTORY: E04.1 thyroid nodules. Follow up thyroid nodules, history of thyroid FNA GLAND SIZE: Right Lobe: 4.4 x 1.5 x 2.0 cm Overall Parenchyma: heterogenous Left Lobe: 4.4 x 1.7 x 1.6 cm Overall Parenchyma: heterogeneous Isthmus Thickness: 0.3 cm NODULES RIGHT: # of nodules measured on right: 1 1. 1.9 X 0.9 x 1.5 cm cystic nodule with 0.4cm echogenic focus within at the lateral mid pole with well-defined margins. This nodule is wider than tall and shows no intranodular vascularity. Prior size: 2.9 x 2.3 x 1.9 cm LEFT: # of nodules measured on left: 1 1. 1.9 X 1.6 x 1.4 cm hyperechoic solid nodule with small cystic component, at the mid pole with we ll-defined margins. This nodule is taller than wide and shows intranodular vascularity. Prior size: 1.5 x 1.2 x 1.4 cm ISTHMUS: # of nodules measured in the isthmus: 0 Bilateral neck scanned, no evidence of lymphadenopathy. IMPRESSION: The right thyroid nodule appears smaller than on the prior exam and left thyroid nodule slightly larg er than on the prior exam. Correlate with prior results of the left-sided fine-needle aspiration on .
== END | disposition home or self-care (01) ==
LOC: RADUSWWP 14:46
PROVIDERS: ATTEND Otolaryngology
DX: E04.2 Nontoxic multinodular goiter (principal)
CPT/HCPCS: 76536

== ENCOUNTER → 2018-07-22 | Outpatient (CLI) | payer MEDICARE ==
--- NOTE | 2018-07-23 09:57 | XR ---
EXAMINATION TYPE: XR chest 2V DATE OF EXAM: 07/22/2018 COMPARISON: 03/15/2018 TECHNIQUE: PA and lateral views submitted. HISTORY: Cough and congestion FINDINGS: The lungs are clear and there is no pneumothorax, pleural effusion, or focal pneumonia. Hyperinflat ion noted. Atherosclerotic change aorta. Arthropathy of the shoulders with diffuse osteopenia. No ove rt failure. IMPRESSION: 1. No acute process. Correlate for COPD.
== END | disposition home or self-care (01) ==
LOC: RADXRMAIN 16:11
PROVIDERS: ATTEND Family Medicine
DX: J41.1 Mucopurulent chronic bronchitis (principal)
CPT/HCPCS: 71046

== ENCOUNTER 2018-07-29 12:21 | Observation (INO) | payer MEDICARE ==
[2018-07-29] MEDS ORDERED: SODIUM CHLORIDE 0.9% 1,000 ML IV STA (13:22)
--- NOTE | 2018-07-29 13:25 | ED ---
General Adult HPI - General Chief complaint: Syncope Stated complaint: SYNCOPE Time Seen by Provider: 07/29/18 12:56 Source: patient, EMS, RN notes reviewed Mode of arrival: EMS Limitations: no limitations - History of Present Illness Initial comments: Patient is a pleasant 83-year-old female presenting to the emergency department following a syncopal episode. Episode occurred prior to arrival while at [place]. Patient was in line waiting to check out. Patient has felt once and then again a second time. Patient does not recall the episode well. Patient states she feels close to normal at this time other than feeling somewhat hungry. No headache or confusion. No weakness or visual changes or speech problems. No chest pain or dyspnea. No abdominal pain. No history of similar symptoms previously. Patient has a questionable history of previous TIA. - Related Data Home Medications Medication Instructions Recorded Confirmed Brinzolamide/Brimonidine Tart 1 drop BOTH EYES BID 09/07/17 07/29/18 [Simbrinza 1%-0.2% Eye Drops] Latanoprost Ophth [Xalatan 0.005%] 1 drop BOTH EYES HS 09/07/17 07/29/18 Fluticasone Nasal [place] [Flonase 2 spr EA NOSTRIL DAILY 03/12/18 07/29/18 Nasal [place]] Montelukast [Singulair] 10 mg PO HS 03/12/18 07/29/18 Ibuprofen [Motrin Ib] 200 mg PO DAILY 03/15/18 07/29/18 Ascorbic Acid [Vitamin C] 500 mg PO DAILY 07/29/18 07/29/18 Multivitamin,Therapeutic [Thera] 1 tab PO DAILY 07/29/18 07/29/18 Vit C/E/Zn/Coppr/Lutein/Zeaxan 2 cap PO HS 07/29/18 07/29/18 [Preservision Areds 2 Softgel] Previous Rx's Medication Instructions Recorded Aspirin 81 mg PO DAILY #30 chewable 03/16/18 Atorvastatin Calcium [Lipitor] 20 mg PO HS #30 tab 03/16/18 Allergies Allergy/AdvReac Type Severity Reaction Status Date / Time azithromycin Allergy Unknown Verified 07/29/18 12:43 black pepper Allergy Unknown Verified 07/29/18 12:43 gluten Allergy Unknown Verified 07/29/18 12:43 lemon Allergy Unknown Verified 07/29/18 12:43 orange juice [[place]] Allergy Unknown Verified 07/29/18 12:43 shellfish derived [Shellfish] Allergy Unknown Verified 07/29/18 12:43 wheat Allergy Unknown Verified 07/29/18 12:43 Yeast Allergy Unknown Verified 07/29/18 12:43 Review of Systems ROS Statement: Those systems with pertinent positive or pertinent negative responses have been documented in the HPI. ROS Other: All systems not noted in ROS Statement are negative. Constitutional: Denies: fever Eyes: Denies: eye pain ENT: Denies: ear pain Respiratory: Denies: cough Cardiovascular: Denies: chest pain Endocrine: Denies: fatigue Gastrointestinal: Denies: abdominal pain Genitourinary: Denies: dysuria Musculoskeletal: Denies: back pain Skin: Denies: rash Neurological: Denies: weakness Past Medical History Past Medical History: Asthma, Hyperlipidemia Additional Past Medical History / Comment(s): glaucoma -bilateral eyes, bronchitis History of Any Multi-Drug Resistant Organisms: None Reported Past Surgical History: Back Surgery, Cholecystectomy, Hernia Repair, Hysterectomy Additional Past Surgical History / Comment(s): cataract, salivary gland removed, Past Anesthesia/Blood Transfusion Reactions: No Reported Reaction Past Psychological History: No Psychological Hx Reported Smoking Status: Never smoker Past Alcohol Use History: Rare Past Drug Use History: None Reported - Past Family History Mother Family Medical History: Cancer Additional Family Medical History / Comment(s): breast ca General Exam Limitations: no limitations General appearance: alert, in no apparent distress Head exam: Present: atraumatic, normocephalic Eye exam: Present: normal appearance, PERRL, EOMI. Absent: nystagmus ENT exam: Present: normal oropharynx Neck exam: Present: normal inspection. Absent: tenderness Respiratory exam: Present: normal lung sounds bilaterally Cardiovascular Exam: Present: regular rate, normal rhythm Expanded Peripheral pulses: 2+: Radial (R), Radial (L), Dorsalis Pedis (R), Dorsalis Pedis (L) GI/Abdominal exam: Present: soft. Absent: tenderness Extremities exam: Present: normal inspection. Absent: pedal edema, calf tenderness Neurological exam: Present: alert, oriented X3, CN II-XII intact. Absent: motor sensory deficit Expanded Neurological exam: Present: protecting the airway Patient oriented to: Present: person, place, time Speech: Present: fluid speech Cranial nerves: EOM's Intact: Normal Sensory exam: Upper Extremity Light Touch: Normal, Lower Extremity Light Touch: Normal Motor strength exam: RUE: 5, LUE: 5, RLE: 5, LLE: 5 Eye Response: (4) open spontaneously Motor Response: (6) obeys commands Verbal Response: (5) oriented Psychiatric exam: Present: normal affect, normal mood Skin exam: Present: normal color Course Vital Signs 07/29/18 07/29/18 07/29/18 12:30 12:39 15:08 Temperature 98 F Pulse Rate 79 89 Respiratory 17 17 Rate Blood Pressure 148/90 148/90 166/87 O2 Sat by Pulse 100 100 98 Oximetry EKG Findings - EKG Comments: EKG Findings:: Normal sinus rhythm at 73. IA 158. QRS 84. QT 410. QTc 451. Normal axis. No acute ST change. Septal Q waves. Medical Decision Making - Medical Decision Making Patient reevaluated and resting comfortably in bed. Patient and family updated on results and plan. Case was discussed in detail with Dr. Hicks, covering for Dr. Wolf, who will admit. - Lab Data Result diagrams: 07/29/18 13:32 07/29/18 13:32 Lab Results 07/29/18 07/29/18 07/29/18 Range/Units 13:32 13:32 13:32 WBC 14.4 H (3.8-10.6) k/uL RBC 4.44 (3.80-5.40) m/uL Hgb 13.3 (11.4-16.0) gm/dL Hct 41.3 (34.0-46.0) % MCV 93.0 (80.0-100.0) fL MCH 30.0 (25.0-35.0) pg MCHC 32.3 (31.0-37.0) g/dL RDW 13.6 (11.5-15.5) % Plt Count 316 (150-450) k/uL Neutrophils % 87 % Lymphocytes % 5 % Monocytes % 6 % Eosinophils % 1 % Basophils % 0 % Neutrophils # 12.5 H (1.3-7.7) k/uL Lymphocytes # 0.8 L (1.0-4.8) k/uL Monocytes # 0.9 (0-1.0) k/uL Eosinophils # 0.1 (0-0.7) k/uL Basophils # 0.0 (0-0.2) k/uL PT 10.3 (9.0-12.0) sec INR 1.0 (<1.2) APTT 18.7 L (22.0-30.0) sec Sodium 130 L (137-145) mmol/L Potassium 4.4 (3.5-5.1) mmol/L Chloride 101 (98-107) mmol/L Carbon Dioxide 22 (22-30) mmol/L Anion Gap 7 mmol/L BUN 23 H (7-17) mg/dL Creatinine 0.90 (0.52-1.04) mg/dL Est GFR (CKD-EPI)AfAm 68 (>60 ml/min/1.73 sqM) Est GFR (CKD-EPI)NonAf 59 (>60 ml/min/1.73 sqM) Glucose 139 H (74-99) mg/dL Calcium 9.4 (8.4-10.2) mg/dL Magnesium 1.8 (1.6-2.3) mg/dL Total Bilirubin 1.0 (0.2-1.3) mg/dL AST 17 (14-36) U/L ALT 29 (9-52) U/L Alkaline Phosphatase 68 (38-126) U/L Troponin I (0.000-0.034) ng/mL Total Protein 6.4 (6.3-8.2) g/dL Albumin 3.8 (3.5-5.0) g/dL Urine Color Urine Appearance (Clear) Urine pH (5.0-8.0) Ur Specific [place] (1.001-1.035) Urine Protein (Negative) Urine Glucose (UA) (Negative) Urine Ketones (Negative) Urine Blood (Negative) Urine Nitrite (Negative) Urine Bilirubin (Negative) Urine Urobilinogen (<2.0) mg/dL Ur Leukocyte Esterase (Negative) Urine RBC (0-5) /hpf Urine WBC (0-5) /hpf Ur Squamous Epith Cells (0-4) /hpf Urine Bacteria (None) /hpf Hyaline Casts (0-2) /lpf Urine Mucus (None) /hpf 07/29/18 07/29/18 Range/Units 13:32 14:50 WBC (3.8-10.6) k/uL RBC (3.80-5.40) m/uL Hgb (11.4-16.0) gm/dL Hct (34.0-46.0) % MCV (80.0-100.0) fL MCH (25.0-35.0) pg MCHC (31.0-37.0) g/dL RDW (11.5-15.5) % Plt Count (150-450) k/uL Neutrophils % % Lymphocytes % % Monocytes % % Eosinophils % % Basophils % % Neutrophils # (1.3-7.7) k/uL Lymphocytes # (1.0-4.8) k/uL Monocytes # (0-1.0) k/uL Eosinophils # (0-0.7) k/uL Basophils # (0-0.2) k/uL PT (9.0-12.0) sec INR (<1.2) APTT (22.0-30.0) sec Sodium (137-145) mmol/L Potassium (3.5-5.1) mmol/L Chloride (98-107) mmol/L Carbon Dioxide (22-30) mmol/L Anion Gap mmol/L BUN (7-17) mg/dL Creatinine (0.52-1.04) mg/dL Est GFR (CKD-EPI)AfAm (>60 ml/min/1.73 sqM) Est GFR (CKD-EPI)NonAf (>60 ml/min/1.73 sqM) Glucose (74-99) mg/dL Calcium (8.4-10.2) mg/dL Magnesium (1.6-2.3) mg/dL Total Bilirubin (0.2-1.3) mg/dL AST (14-36) U/L ALT (9-52) U/L Alkaline Phosphatase (38-126) U/L Troponin I <0.012 (0.000-0.034) ng/mL Total Protein (6.3-8.2) g/dL Albumin (3.5-5.0) g/dL Urine Color Yellow Urine Appearance Clear (Clear) Urine pH 7.0 (5.0-8.0) Ur Specific [place] 1.013 (1.001-1.035) Urine Protein Trace H (Negative) Urine Glucose (UA) Negative (Negative) Urine Ketones Trace H (Negative) Urine Blood Negative (Negative) Urine Nitrite Negative (Negative) Urine Bilirubin Negative (Negative) Urine Urobilinogen <2.0 (<2.0) mg/dL Ur Leukocyte Esterase Small H (Negative) Urine RBC 1 (0-5) /hpf Urine WBC 30 H (0-5) /hpf Ur Squamous Epith Cells <1 (0-4) /hpf Urine Bacteria Rare H (None) /hpf Hyaline Casts 7 H (0-2) /lpf Urine Mucus Moderate H (None) /hpf - Radiology Data Radiology results: report reviewed (CC scan the brain does not reveal acute abnormality.), image reviewed (Chest x-ray shows no acute process) Disposition Clinical Impression: Syncope Disposition: ADMITTED IP TO THIS HOSP Is patient prescribed a controlled substance at d/c from ED?: No Referrals: Osman Wolf MD [Primary Care Provider] - 1-2 days Decision Time: 15:51
[2018-07-29 13:42] LABS: Basophils % (A) 0 %; Eosinophils # (A) 0.1 k/uL (0-0.7); Eosinophils % (A) 1 %; HCT 41.3 % (34.0-46.0); HGB 13.3 gm/dL (11.4-16.0); Lymphocytes # (A) 0.8 k/uL (1.0-4.8); Lymphocytes % (A) 5 %; MCHC 32.3 g/dL (31.0-37.0); Mean Platelet Volume 6.3; Monocytes # (A) 0.9 k/uL (0-1.0); Monocytes % (A) 6 %; Neutrophils # (A) 12.5 k/uL (1.3-7.7); Neutrophils % (A) 87 %; Platelet Count 316 k/uL (150-450); RBC 4.44 m/uL (3.80-5.40); RDW 13.6 % (11.5-15.5); WBC 14.4 k/uL (3.8-10.6)
[2018-07-29 13:53] LABS: Albumin 3.8 g/dL (3.5-5.0); Calcium 9.4 mg/dL (8.4-10.2); Magnesium 1.8 mg/dL (1.6-2.3); Potassium 4.4 mmol/L (3.5-5.1); Total Protein 6.4 g/dL (6.3-8.2)
[2018-07-29 13:58] LABS: Prothrombin Time 10.3 sec (9.0-12.0)
--- NOTE | 2018-07-29 14:22 | CT ---
EXAMINATION TYPE: CT brain wo con DATE OF EXAM: 07/29/2018 COMPARISON: Prior CT 03/15/2018 HISTORY: Syncope CT DLP: 1068.8 mGycm Automated exposure control for dose reduction was used. Helical imaging through the brain FINDINGS: Periventricular white matter shows patchy low attenuation. There is no hemorrhage or hydrocephalus. C alvarium is intact. Paranasal sinuses and mastoid air cells are unremarkable. Orbits show symmetric a reas. There are cerebral vascular calcifications. IMPRESSION: NO ACUTE ABNORMALITY. NONSPECIFIC WHITE MATTER DEMYELINATION.
[2018-07-29 14:24] LABS: Partial Thromboplastin Time 18.7 sec (22.0-30.0)
--- NOTE | 2018-07-29 14:33 | XR ---
EXAMINATION TYPE: XR chest 2V DATE OF EXAM: 07/29/2018 COMPARISON: 07/22/2018 TECHNIQUE: PA and lateral views submitted. HISTORY: Chest pain FINDINGS: The lungs are clear and there is no pneumothorax, pleural effusion, or focal pneumonia. Hyperinflati on suggests COPD. Linear changes involving the left lung likely related to scar or atelectasis. No ov ert failure. Diffuse osteopenia and arthropathy of the shoulders. Degenerative change of the spine. IMPRESSION: 1. COPD.
[2018-07-29 15:12] LABS: Appearance,Urine Clear (Clear); Bacteria,Urine Rare /hpf; Bilirubin,Urine Negative (Negative); Blood,Urine Negative (Negative); Color,Urine Yellow; Glucose,Urine (UA) Negative (Negative); Hyaline Casts,Urine 7 /lpf (0-2); Ketones,Urine Trace (Negative); Leukocyte Esterase,Urine Small (Negative); Mucus,Urine Moderate /hpf; Nitrite,Urine Negative (Negative); Protein,Urine Trace (Negative); RBC,Urine 1 /hpf (0-5); Specific Gravity,Urine 1.013 (1.001-1.035); Squamous Epithelial Cell,Urine <1 /hpf (0-4); Urobilinogen,Urine <2.0 mg/dL (<2.0); WBC,Urine 30 /hpf (0-5)
[2018-07-29] MEDS ORDERED: NALOXONE 0.4 MG/ML 1 ML VIAL IV PRN (15:51)
[2018-07-29] MEDS ORDERED: LISINOPRIL 5 MG TAB PO STA (16:39)
[2018-07-29] MEDS: SODIUM CHLORIDE 0.9% 1,000 ML IV SCH (16:48)
--- NOTE | 2018-07-29 19:17 | P.HPIM ---
History of Present Illness This is a pleasant 83 years old female with past medical history of asthma, hyperlipidemia, glaucoma in both eyes and bronchitis, TIA. Presents because of syncope, pt states she was at a line in [employer] today and was waiting for longer than usual when her legs gave away and she syncopized, she was not sure for how long she was on the floor , but she thinks it was not long , she regains consciousness quickly and while she was sitting she sycopized for a second time, no witnessed tonic clonic activity , no urine or bowel incontinance, no tongue biting , pt denies chest pain , dizziness, or palpiation during the syncope but she states she was not drinking much fluid as she supposed to be lately and today morning she did not eat or drink as usual. currently pt deneis chest pain , no dyspnea , no abd pain , no n/v, no change in urine or bowel habits. no fever. on admission pt has leukocytosis at 14K, with urine is suspicious for UTI, UC is pending , she has mild hyponatremia, she is hungry and wants to eat. when she fell she denies head trauma , she denies headache or pain any other place. Review of Systems CONSTITUTIONAL: No fever, no malaise, no fatigue. HEENT: No recent visual problems or hearing problems. Denied any sore throat. CARDIOVASCULAR: No orthopnea, PND, no palpitations, no syncope. PULMONARY: No shortness of breath, no cough, no hemoptysis. GASTROINTESTINAL: No diarrhea, no nausea, no vomiting, no abdominal pain. Normoactive bowel sounds. NEUROLOGICAL: No headaches, no weakness, no numbness. HEMATOLOGICAL: Denies any bleeding or petechiae. GENITOURINARY: Denies any burning micturition, frequency, or urgency. MUSCULOSKELETAL/RHEUMATOLOGICAL: Denies any joint pain, swelling, or any muscle pain. ENDOCRINE: Denies any polyuria or polydipsia. Past Medical History Past Medical History: Asthma, Hyperlipidemia Additional Past Medical History / Comment(s): glaucoma -bilateral eyes, bronchitis History of Any Multi-Drug Resistant Organisms: None Reported Past Surgical History: Back Surgery, Cholecystectomy, Hernia Repair, Hysterectomy Additional Past Surgical History / Comment(s): cataract, salivary gland removed, Past Anesthesia/Blood Transfusion Reactions: No Reported Reaction Past Psychological History: No Psychological Hx Reported Smoking Status: Never smoker Past Alcohol Use History: Rare Past Drug Use History: None Reported - Past Family History Mother Family Medical History: Cancer Additional Family Medical History / Comment(s): breast ca Medications and Allergies Home Medications Medication Instructions Recorded Confirmed Type Brinzolamide/Brimonidine Tart 1 drop BOTH EYES BID 09/07/17 07/29/18 History [Simbrinza 1%-0.2% Eye Drops] Latanoprost Ophth [Xalatan 0.005%] 1 drop BOTH EYES HS 09/07/17 07/29/18 History Fluticasone Nasal [place] [Flonase 2 spr EA NOSTRIL DAILY 03/12/18 07/29/18 History Nasal [place]] Montelukast [Singulair] 10 mg PO HS 03/12/18 07/29/18 History Ibuprofen [Motrin Ib] 200 mg PO DAILY 03/15/18 07/29/18 History Aspirin 81 mg PO DAILY #30 chewable 03/16/18 07/29/18 Rx Atorvastatin Calcium [Lipitor] 20 mg PO HS #30 tab 03/16/18 07/29/18 Rx Ascorbic Acid [Vitamin C] 500 mg PO DAILY 07/29/18 07/29/18 History Multivitamin,Therapeutic [Thera] 1 tab PO DAILY 07/29/18 07/29/18 History Vit C/E/Zn/Coppr/Lutein/Zeaxan 2 cap PO HS 07/29/18 07/29/18 History [Preservision Areds 2 Softgel] Allergies Allergy/AdvReac Type Severity Reaction Status Date / Time azithromycin Allergy Unknown Verified 07/29/18 12:43 black pepper Allergy Unknown Verified 07/29/18 12:43 gluten Allergy Unknown Verified 07/29/18 12:43 lemon Allergy Unknown Verified 07/29/18 12:43 orange juice [[place]] Allergy Unknown Verified 07/29/18 12:43 shellfish derived [Shellfish] Allergy Unknown Verified 07/29/18 12:43 wheat Allergy Unknown Verified 07/29/18 12:43 Yeast Allergy Unknown Verified 07/29/18 12:43 Physical Exam Vitals: Vital Signs Temp Pulse Resp BP Pulse Ox 07/29/18 16:30 78 20 170/85 96 07/29/18 15:30 91 16 166/87 07/29/18 15:08 89 17 166/87 98 07/29/18 12:39 98 F 79 17 148/90 100 07/29/18 12:30 148/90 100 Intake and Output 07/29/18 07/29/18 07/29/18 06:59 14:59 22:59 Other: Weight 120 kg GENERAL: The patient is alert and oriented x3, not in any acute distress. Well developed, well nourished. HEENT: Pupils are round and equally reacting to light. EOMI. No scleral icterus. No conjunctival pallor. Normocephalic, atraumatic. No pharyngeal erythema. No thyromegaly. CARDIOVASCULAR: S1 and S2 present. No murmurs, rubs, or gallops. PULMONARY: Chest is clear to auscultation, no wheezing or crackles. ABDOMEN: Soft, nontender, nondistended, normoactive bowel sounds. No palpable organomegaly. MUSCULOSKELETAL: No joint swelling or deformity. EXTREMITIES: No cyanosis, clubbing, or pedal edema. NEUROLOGICAL: Gross neurological examination did not reveal any focal deficits. SKIN: No rashes. Results CBC & Chem 7: 07/29/18 13:32 07/29/18 13:32 Labs: Abnormal Lab Results - Last 24 Hours (Table) 07/29/18 07/29/18 07/29/18 Range/Units 13:32 13:32 13:32 WBC 14.4 H (3.8-10.6) k/uL Neutrophils # 12.5 H (1.3-7.7) k/uL Lymphocytes # 0.8 L (1.0-4.8) k/uL APTT 18.7 L (22.0-30.0) sec Sodium 130 L (137-145) mmol/L BUN 23 H (7-17) mg/dL Glucose 139 H (74-99) mg/dL Creatine Kinase (30-135) U/L Urine Protein (Negative) Urine Ketones (Negative) Ur Leukocyte Esterase (Negative) Urine WBC (0-5) /hpf Urine Bacteria (None) /hpf Hyaline Casts (0-2) /lpf Urine Mucus (None) /hpf 07/29/18 07/29/18 Range/Units 13:32 14:50 WBC (3.8-10.6) k/uL Neutrophils # (1.3-7.7) k/uL Lymphocytes # (1.0-4.8) k/uL APTT (22.0-30.0) sec Sodium (137-145) mmol/L BUN (7-17) mg/dL Glucose (74-99) mg/dL Creatine Kinase 23 L (30-135) U/L Urine Protein Trace H (Negative) Urine Ketones Trace H (Negative) Ur Leukocyte Esterase Small H (Negative) Urine WBC 30 H (0-5) /hpf Urine Bacteria Rare H (None) /hpf Hyaline Casts 7 H (0-2) /lpf Urine Mucus Moderate H (None) /hpf Assessment and Plan Assessment: Syncope dehydration possible UTI infection hyponatremia, mild leukocytosis History of asthma History of TIA History of hyperlipidemia History of glaucoma on both eyes History of bronchitis Plan: This is a pleasant 83 years old female who presents because of syncope. We'll check orthostatic is, she has recent echo. Put her on telemetry. Start hydration. cardiology consult , start ceftriaxone empirically , f/u UC Labs and medication were reviewed.. Continue same treatment. Continue with symptomatic treatment. Resume home medication. Monitor lytes and vitals. DVT and GI prophylaxis. Further recommendations of the clinical course of the patient DVT prophylaxis: Subcutaneous heparin GI Prophylaxis: Pepcid PT/OT: Pending Prognosis is guarded
[2018-07-29 20:49] LABS: Creatine Kinase MB 0.3 ng/mL (0.0-2.4); Troponin I <0.012 ng/mL (0.000-0.034)
[2018-07-29] MEDS: HEPARIN SODIUM,PORCINE 5,000 UNIT/ML 1 ML VIAL SQ SCH (21:51)
[2018-07-29] MEDS: ATORVASTATIN 20 MG TAB PO SCH (21:51)
[2018-07-29] MEDS: DORZOLAMIDE HCL 2% DROPS 10 ML BTL BOTH EYES SCH (21:51)
[2018-07-29] MEDS: MONTELUKAST 10 MG TAB PO SCH (21:51)
[2018-07-29] MEDS: FAMOTIDINE 20 MG/2 ML VIAL IV SCH (21:51)
[2018-07-29] MEDS: BRIMONIDINE TARTRATE 0.2% DROPS 5 ML BTL BOTH EYES SCH ×2 (21:51→21:52)
[2018-07-29] MEDS: LATANOPROST 0.005% OPHTH DROPS 2.5 ML BTL BOTH EYES SCH (21:59)
[2018-07-30 02:43] LABS: Creatine Kinase MB 0.3 ng/mL (0.0-2.4); Troponin I <0.012 ng/mL (0.000-0.034)
[2018-07-30 10:04] LABS: Basophils % (A) 0 %; Eosinophils # (A) 0.1 k/uL (0-0.7); Eosinophils % (A) 1 %; HGB 12.4 gm/dL (11.4-16.0); Lymphocytes # (A) 1.7 k/uL (1.0-4.8); Lymphocytes % (A) 19 %; MCH 30.2 pg (25.0-35.0); MCHC 32.5 g/dL (31.0-37.0); Mean Platelet Volume 6.8; Monocytes # (A) 0.8 k/uL (0-1.0); Monocytes % (A) 10 %; Neutrophils # (A) 5.9 k/uL (1.3-7.7); Neutrophils % (A) 68 %; Platelet Count 279 k/uL (150-450); RBC 4.08 m/uL (3.80-5.40); RDW 13.6 % (11.5-15.5); WBC 8.6 k/uL (3.8-10.6)
[2018-07-30 10:16] LABS: Calcium 8.6 mg/dL (8.4-10.2); Potassium 4.5 mmol/L (3.5-5.1)
[2018-07-30] MEDS: ASPIRIN 81 MG PO SCH (10:28)
[2018-07-30] MEDS: FAMOTIDINE 20 MG/2 ML VIAL IV SCH (10:28)
[2018-07-30] MEDS: FLUTICASONE 50MCG/SPRAY NASAL 16GM EA NOSTRIL SCH (10:28)
[2018-07-30] MEDS: DORZOLAMIDE HCL 2% DROPS 10 ML BTL BOTH EYES SCH ×2 (10:28→21:25)
[2018-07-30] MEDS: HEPARIN SODIUM,PORCINE 5,000 UNIT/ML 1 ML VIAL SQ SCH ×2 (10:29→20:13)
--- NOTE | 2018-07-30 12:48 | P.CRDCN ---
History of Present Illness Consult date: 07/30/18 Chief complaint: Chest Pain/Neck numbness/Right arm numbness History of present illness: This is a 83-year-old female sent into emergency department following syncopal episode. Patient states she was shopping at [employer] waiting in line to check out when she had a syncopal episode, fell twice. Patient states she does not recall the episode well. Patient states she had not eaten or drinking anything that day. Patient said she was hot with her coat on and 2 layers of sweatshirts. No current complaints of headache, weakness, confusion, dizziness or speech problems. No current complaints of chest pain, chest pressure, heart palpitations, difficulty in breathing, or lower extremity edema. Patient has history of asthma, glaucoma, bronchitis, hyperlipidemia, questionable TIA. Patient positive for orthostatic pressures and ER systolic pressures 146, 121, and 102. EKG done shows SR, rate of 75 beats per minute with PACs. Troponins negative 3. Chest x-ray showed COPD. Negative for acute process. Most recent echo dated 03/16/2018 indicates EF greater than 55%. LV size wall thickness and systolic function within normal limits. Mild MR. Mild TR. Trace CT. Will not repeat. Most recent carotid ultrasound dated 03/22/2018 indicates arthrosclerotic changes bilaterally, no significant hemodynamic stenosis bilaterally. Right ICA ratio 1.1. Left ICA ratio 1.7. Will not repeat. PLAN: Continue same medication/medical regime at this time. Continue IV hydration, encourage oral hydration as well. 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 Kennel Operator patient to rise slowly with movement with positive orthostatic changes. Outpatient DCG in office recommended at discharge. Review of Systems At the time of my exam: CONSTITUTIONAL: Denies fever. Denies chills. EYES: Denies blurred vision. Denies vision changes. Denies eye pain. EARS, NOSE, MOUTH & THROAT: Denies headache. Denies sore throat. Denies ear pain. CARDIOVASCULAR: Denies chest pain. Denies shortness of breath. Denies orthopnea. Denies PND. Denies palpitations. RESPIRATORY: Complains of cough. GASTROINTESTINAL: Denies abdominal pain. Denies diarrhea. Denies constipation. Denies nausea. Denies vomiting. MUSCULOSKELETAL: Denies myalgias. INTEGUMENTARY: Denies pruitis. Denies rash. NEUROLOGIC: Denies numbness. Denies tingling. Denies weakness. PSYCHIATRIC: Denies anxiety. Denies depression. ENDOCRINE: Denies fatigue. Denies weight change. Denies polydipsia. Denies polyurina. GENITOURINARY: Denies burning, hematuria or urgency with micturation. HEMATOLOGIC: Denies history of anemia. Denies bleeding. Past Medical History Past Medical History: Asthma, CVA/TIA, Hyperlipidemia Additional Past Medical History / Comment(s): glaucoma -bilateral eyes, bronchitis, TIA - dx in [address] Krause History of Any Multi-Drug Resistant Organisms: None Reported Past Surgical History: Back Surgery, Cholecystectomy, Hernia Repair, Hysterectomy Additional Past Surgical History / Comment(s): cataract, salivary gland removed, Past Anesthesia/Blood Transfusion Reactions: No Reported Reaction Past Psychological History: No Psychological Hx Reported Smoking Status: Never smoker Past Alcohol Use History: Rare Past Drug Use History: None Reported - Past Family History Mother Family Medical History: Cancer Additional Family Medical History / Comment(s): breast ca Medications and Allergies Home Medications Medication Instructions Recorded Confirmed Type Brinzolamide/Brimonidine Tart 1 drop BOTH EYES BID 09/07/17 07/29/18 History [Simbrinza 1%-0.2% Eye Drops] Latanoprost Ophth [Xalatan 0.005%] 1 drop BOTH EYES HS 09/07/17 07/29/18 History Fluticasone Nasal [place] [Flonase 2 spr EA NOSTRIL DAILY 03/12/18 07/29/18 History Nasal [place]] Montelukast [Singulair] 10 mg PO HS 03/12/18 07/29/18 History Ibuprofen [Motrin Ib] 200 mg PO DAILY 03/15/18 07/29/18 History Aspirin 81 mg PO DAILY #30 chewable 03/16/18 07/29/18 Rx Atorvastatin Calcium [Lipitor] 20 mg PO HS #30 tab 03/16/18 07/29/18 Rx Ascorbic Acid [Vitamin C] 500 mg PO DAILY 07/29/18 07/29/18 History Mometasone Furoate [Asmanex Hfa] 1 inhalation INHALATION HS 07/29/18 07/29/18 History Multivitamin,Therapeutic [Thera] 1 tab PO DAILY 07/29/18 07/29/18 History Vit C/E/Zn/Coppr/Lutein/Zeaxan 2 cap PO HS 07/29/18 07/29/18 History [Preservision Areds 2 Softgel] Allergies Allergy/AdvReac Type Severity Reaction Status Date / Time azithromycin Allergy Unknown Verified 07/29/18 12:43 black pepper Allergy Unknown Verified 07/29/18 12:43 gluten Allergy Unknown Verified 07/29/18 12:43 lemon Allergy Unknown Verified 07/29/18 12:43 orange juice [[place]] Allergy Unknown Verified 07/29/18 12:43 shellfish derived [Shellfish] Allergy Unknown Verified 07/29/18 12:43 wheat Allergy Unknown Verified 07/29/18 12:43 Yeast Allergy Unknown Verified 07/29/18 12:43 Physical Exam Vitals: Vital Signs Temp Pulse Pulse Pulse Pulse Pulse Resp 07/30/18 08:00 98.5 F 78 18 07/30/18 07:51 16 07/30/18 03:35 98.8 F 73 16 07/30/18 03:21 16 07/30/18 00:00 16 07/29/18 23:31 97.9 F 89 16 07/29/18 20:00 16 07/29/18 19:46 97.8 F 99 16 07/29/18 19:15 100 115 H 87 07/29/18 19:05 07/29/18 18:00 92 17 07/29/18 17:00 88 24 07/29/18 16:30 78 20 07/29/18 15:30 91 16 07/29/18 15:08 89 17 07/29/18 12:39 98 F 79 17 07/29/18 12:30 BP BP BP BP BP Pulse Ox 07/30/18 08:00 111/71 98 07/30/18 07:51 07/30/18 03:35 108/65 97 07/30/18 03:21 07/30/18 00:00 07/29/18 23:31 96/59 97 07/29/18 20:00 07/29/18 19:46 127/79 96 07/29/18 19:15 121/90 102/69 146/84 07/29/18 19:05 137/82 07/29/18 18:00 123/81 99 07/29/18 17:00 170/88 95 07/29/18 16:30 170/85 96 07/29/18 15:30 166/87 07/29/18 15:08 166/87 98 07/29/18 12:39 148/90 100 07/29/18 12:30 148/90 100 Intake and Output 07/29/18 07/30/18 07/30/18 22:59 06:59 14:59 Intake Total 800 Balance 800 Intake: IV 800 Sodium Chloride 0.9% 1, 800 000 ml @ 100 mls/hr IV . Q10H STA Rx#:[id number] Other: Voiding Method Toilet Toilet Toilet # Voids 2 1 GENERAL: This is a 83-year-old female in no apparent distress at the time of my examination. HEENT: Head is atraumatic, normocephalic. Pupils are equal, round. Sclerae anicteric. Conjunctivae are clear. Mucous membranes of the mouth are moist. Neck is supple. There is no jugular venous distention. No carotid bruit is heard. LUNGS: Clear to auscultation no wheezes, rales or rhonchi. No chest wall tenderness is noted on palpation or with deep breathing. HEART: Regular rate and rhythm without murmurs, rubs or gallops. S1 and S2 heard. ABDOMEN: Soft, nontender. Bowel sounds are heard. No organomegaly noted. EXTREMITIES: No evidence of peripheral edema and no calf tenderness noted. VASCULAR: Radial and dorsalis pedis pulses palpated, no evidence of clubbing. NEUROLOGIC: Patient is awake, alert and oriented x3. Results 07/30/18 08:54 07/30/18 08:54 Cardiac Enzymes 07/29/18 07/29/18 07/29/18 Range/Units 13:32 13:32 19:54 AST 17 (14-36) U/L CK-MB (CK-2) 0.3 (0.0-2.4) ng/mL Troponin I <0.012 <0.012 (0.000-0.034) ng/mL 07/30/18 Range/Units 01:31 AST (14-36) U/L CK-MB (CK-2) 0.3 (0.0-2.4) ng/mL Troponin I <0.012 (0.000-0.034) ng/mL Coagulation 07/29/18 Range/Units 13:32 PT 10.3 (9.0-12.0) sec APTT 18.7 L (22.0-30.0) sec CBC 07/29/18 Range/Units 13:32 WBC 14.4 H (3.8-10.6) k/uL RBC 4.44 (3.80-5.40) m/uL Hgb 13.3 (11.4-16.0) gm/dL Hct 41.3 (34.0-46.0) % Plt Count 316 (150-450) k/uL Comprehensive Metabolic Panel 07/29/18 Range/Units 13:32 Sodium 130 L (137-145) mmol/L Potassium 4.4 (3.5-5.1) mmol/L Chloride 101 (98-107) mmol/L Carbon Dioxide 22 (22-30) mmol/L BUN 23 H (7-17) mg/dL Creatinine 0.90 (0.52-1.04) mg/dL Glucose 139 H (74-99) mg/dL Calcium 9.4 (8.4-10.2) mg/dL AST 17 (14-36) U/L ALT 29 (9-52) U/L Alkaline Phosphatase 68 (38-126) U/L Total Protein 6.4 (6.3-8.2) g/dL Albumin 3.8 (3.5-5.0) g/dL Current Medications Generic Name Dose Route Start Last Admin Trade Name Freq PRN Reason Stop Dose Admin Aspirin 81 mg 07/30/18 09:00 Aspirin PO DAILY [facility] Atorvastatin Calcium 20 mg 07/29/18 21:00 07/29/18 21:51 Lipitor PO 20 mg HS CARLOS Administration Brimonidine Tartrate 1 drops 07/29/18 21:00 07/29/18 21:52 Alphagan P 0.2% Ophth Soln BOTH EYES 1 drops BID CARLOS Administration Dorzolamide HCl 1 drops 07/29/18 21:00 07/29/18 21:51 Trusopt BOTH EYES 1 drops BID CARLOS Administration Famotidine 20 mg 07/29/18 21:00 07/29/18 21:51 Pepcid IV 20 mg Q12HR CARLOS Administration Fluticasone Propionate 2 spray 07/30/18 09:00 Flonase Nasal [place] EA NOSTRIL DAILY CARLOS Heparin Sodium (Porcine) 5,000 unit 07/29/18 21:00 07/29/18 21:51 Heparin SQ 5,000 unit Q12HR CARLOS Administration Sodium Chloride 1,000 mls @ 20 mls/hr 07/29/18 16:00 07/29/18 16:48 Saline 0.9% IV 20 mls/hr .Q24H CARLOS Administration Latanoprost 1 drops 07/29/18 21:00 07/29/18 21:59 Xalatan 0.005% BOTH EYES 1 drops HS CARLOS Administration Montelukast Sodium 10 mg 07/29/18 21:00 07/29/18 21:51 Singulair PO 10 mg HS CARLOS Administration Naloxone HCl 0.2 mg 07/29/18 15:51 Narcan IV Q2M PRN Opioid Reversal Intake and Output 07/29/18 07/30/18 07/30/18 22:59 06:59 14:59 Intake Total 800 Balance 800 Intake: IV 800 Sodium Chloride 0.9% 1, 800 000 ml @ 100 mls/hr IV . Q10H STA Rx#:[id number] Other: Voiding Method Toilet Toilet Toilet # Voids 2 1 07/29/18 13:32 07/29/18 13:32 - Imaging and Cardiology Comment: Most recent echo dated 03/16/2018 indicates EF greater than 55%. LV size wall thickness and systolic function within normal limits. Mild MR. Mild TR. Trace CT. Will not repeat. Most recent carotid ultrasound dated 03/22/2018 indicates arthrosclerotic changes bilaterally, no significant hemodynamic stenosis bilaterally. Right ICA ratio 1.1. Left ICA ratio 1.7. Will not repeat. - EKG Interpretation EKG: sinus rhythm, no acute changes (SR, pac's. Troponin levels negative x3.) Assessment and Plan (1) Dehydration Current Visit: Yes Status: Acute Code(s): E86.0 - DEHYDRATION SNOMED Code( s): 46734856 (2) Orthostatic hypotension Current Visit: Yes Status: Acute Code(s): I95.1 - ORTHOSTATIC HYPOTENSION SNOMED Code(s): 47574257 (3) Syncope Current Visit: Yes Status: Acute Code(s): R55 - SYNCOPE AND COLLAPSE SNOMED Code(s): 942001094 Plan: Continue same medication/medical regime at this time. Continue IV hydration, encourage oral hydration as well. 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 Kennel Operator patient to rise slowly with movement with positive orthostatic changes. Outpatient DCG in office recommended at discharge.
[2018-07-30] MEDS: SODIUM CHLORIDE 0.9% 1,000 ML IV SCH (14:16)
[2018-07-30] MEDS: ACETAMINOPHEN TAB 325 MG TAB PO PRN ×2 (16:05→20:15)
[2018-07-30] MEDS: MONTELUKAST 10 MG TAB PO SCH (20:13)
[2018-07-30] MEDS: ATORVASTATIN 20 MG TAB PO SCH (20:13)
[2018-07-30] MEDS: BRIMONIDINE TARTRATE 0.2% DROPS 5 ML BTL BOTH EYES SCH (21:25)
[2018-07-30] MEDS: LATANOPROST 0.005% OPHTH DROPS 2.5 ML BTL BOTH EYES SCH (21:26)
--- NOTE | 2018-07-30 22:33 | P.PN ---
Subjective This is a pleasant 83 years old female with past medical history of asthma, hyperlipidemia, glaucoma in both eyes and bronchitis, TIA. Presents because of syncope, pt states she was at a line in [employer] today and was waiting for longer than usual when her legs gave away and she syncopized, she was not sure for how long she was on the floor , but she thinks it was not long , she regains consciousness quickly and while she was sitting she sycopized for a second time, no witnessed tonic clonic activity , no urine or bowel incontinance, no tongue biting , pt denies chest pain , dizziness, or palpiation during the syncope but she states she was not drinking much fluid as she supposed to be lately and today morning she did not eat or drink as usual. currently pt deneis chest pain , no dyspnea , no abd pain , no n/v, no change in urine or bowel habits. no fever. on admission pt has leukocytosis at 14K, with urine is suspicious for UTI, UC is pending , she has mild hyponatremia, she is hungry and wants to eat. when she fell she denies head trauma , she denies headache or pain any other place. 07/30/2018 pt is already feel better with iv fluid , yesterday her orthostatis was positive , with SBP dropping from 160 to 140 to 100 upon lying ,sitting and standing , pt was more dehydrated , she was started empirically on ceftriaxone, UC : andree , discussed with staff, if orthodontic vital improved then iv fluid of NS can be lowered 100 to 50 ml/hr. pt dizziness is improving Objective - Vital Signs Vital signs: Vital Signs Temp 99.4 F 07/30/18 19:27 Pulse 78 07/30/18 19:27 Resp 18 07/30/18 19:27 BP 121/71 07/30/18 19:27 Pulse Ox 97 07/30/18 19:27 Intake & Output 07/30/18 07/30/18 07/31/18 06:59 18:59 06:59 Intake Total 3196 Balance 3196 Intake: IV 1600 Sodium Chloride 0.9% 1, 1600 000 ml @ 100 mls/hr IV . Q10H STA Rx#:[id number] Oral 1596 Other: Voiding Method Toilet Toilet # Voids 2 2 - Exam GENERAL: The patient is alert and oriented x3, not in any acute distress. Well developed, well nourished. HEENT: Pupils are round and equally reacting to light. EOMI. No scleral icterus. No conjunctival pallor. Normocephalic, atraumatic. No pharyngeal erythema. No thyromegaly. CARDIOVASCULAR: S1 and S2 present. No murmurs, rubs, or gallops. PULMONARY: Chest is clear to auscultation, no wheezing or crackles. ABDOMEN: Soft, nontender, nondistended, normoactive bowel sounds. No palpable organomegaly. MUSCULOSKELETAL: No joint swelling or deformity. EXTREMITIES: No cyanosis, clubbing, or pedal edema. NEUROLOGICAL: Gross neurological examination did not reveal any focal deficits. SKIN: No rashes. - Labs CBC & Chem 7: 07/30/18 08:54 07/30/18 08:54 Labs: Abnormal Lab Results - Last 24 Hours (Table) 07/30/18 07/30/18 Range/Units 01:31 08:54 Sodium 133 L (137-145) mmol/L Carbon Dioxide 21 L (22-30) mmol/L Creatine Kinase <20 L (30-135) U/L Microbiology - Last 24 Hours (Table) 07/29/18 15:24 Urine Culture - Final Urine,Voided Assessment and Plan Assessment: Syncope dehydration possible UTI infection hyponatremia, mild leukocytosis History of asthma History of TIA History of hyperlipidemia History of glaucoma on both eyes History of bronchitis Plan: This is a pleasant 83 years old female who presents because of syncope. We'll check orthostatic is, she has recent echo. Put her on telemetry. Start hydration. cardiology consult , start ceftriaxone empirically , f/u Labs and medication were reviewed.. Continue same treatment. Continue with symptomatic treatment. Resume home medication. Monitor lytes and vitals. DVT and GI prophylaxis. Further recommendations of the clinical course of the patient DVT prophylaxis: Subcutaneous heparin GI Prophylaxis: Pepcid PT/OT: Pending Prognosis is guarded
[2018-07-31 06:10] LABS: Basophils % (A) 1 %; Eosinophils # (A) 0.3 k/uL (0-0.7); Eosinophils % (A) 4 %; HCT 35.1 % (34.0-46.0); HGB 11.3 gm/dL (11.4-16.0); Lymphocytes # (A) 1.9 k/uL (1.0-4.8); Lymphocytes % (A) 26 %; MCH 30.1 pg (25.0-35.0); MCHC 32.2 g/dL (31.0-37.0); MCV 93.3 fL (80.0-100.0); Mean Platelet Volume 6.8; Monocytes # (A) 0.8 k/uL (0-1.0); Monocytes % (A) 11 %; Neutrophils # (A) 4.2 k/uL (1.3-7.7); Neutrophils % (A) 56 %; Platelet Count 238 k/uL (150-450); RBC 3.76 m/uL (3.80-5.40); RDW 13.6 % (11.5-15.5); WBC 7.4 k/uL (3.8-10.6)
[2018-07-31 06:28] LABS: Calcium 8.6 mg/dL (8.4-10.2); Potassium 4.1 mmol/L (3.5-5.1)
[2018-07-31 08:03] VITALS: RESP 16
--- NOTE | 2018-07-31 08:35 | P.PN ---
Subjective Progress Note Date: 07/31/18 This is a 83-year-old female with a history of asthma, hyperlipidemia, and previous TIAs was admitted to the hospital with an episode of syncope while standing in line at [employer]. Patient is documented to have significant postural hypotension. Patient was given IV fluids. She is feeling better now. Cardiac enzymes are negative. EKG did not reveal any acute changes. Objective - Vital Signs Vital signs: Vital Signs Temp 98.6 F 07/31/18 08:00 Pulse 78 07/31/18 08:00 Resp 16 07/31/18 08:00 BP 163/84 07/31/18 08:00 Pulse Ox 98 07/31/18 08:00 Intake & Output 07/30/18 07/31/18 07/31/18 18:59 06:59 18:59 Intake Total 3196 Balance 3196 Intake: IV 1600 Sodium Chloride 0.9% 1, 1600 000 ml @ 100 mls/hr IV . Q10H STA Rx#:[id number] Oral 1596 Other: Voiding Method Toilet Toilet # Voids 2 2 - Exam GENERAL EXAM: Patient is alert and oriented and doesn't appear to be in any acute distress HEENT: Normocephalic. Normal reaction of pupils, equal size, normal range of extraocular motion. No erythema or exudates in the throat. NECK: No masses, no nuchal rigidity. CHEST: No chest wall deformity. LUNGS: Equal air entry with no crackles or wheeze. HEART: S1 and S2 normal with no audible mumurs or gallops. Regular rhythm, femorals equal on both sides.. ABDOMEN: No hepatosplenomegaly, normal bowel sounds, no guarding or rigidity. SKIN: No rashes CENTRAL NERVOUS SYSTEM: No focal deficits. EXTREMITIES: No cyanosis, clubbing or edema. - Labs CBC & Chem 7: 07/31/18 05:36 07/31/18 05:36 Labs: Abnormal Lab Results - Last 24 Hours (Table) 07/30/18 07/31/18 07/31/18 Range/Units 08:54 05:36 05:36 RBC 3.76 L (3.80-5.40) m/uL Hgb 11.3 L (11.4-16.0) gm/dL Sodium 133 L 132 L (137-145) mmol/L Chloride 108 H (98-107) mmol/L Carbon Dioxide 21 L 21 L (22-30) mmol/L Microbiology - Last 24 Hours (Table) 07/29/18 15:24 Urine Culture - Final Urine,Voided Assessment and Plan (1) Orthostatic hypotension Current Visit: Yes Status: Acute Code(s): I95.1 - ORTHOSTATIC HYPOTENSION SNOMED Code(s): 46436421 (2) Syncope Current Visit: Yes Status: Acute Code(s): R55 - SYNCOPE AND COLLAPSE SNOMED Code(s): 035099218 (3) TIA (transient ischemic attack) Current Visit: No Status: Acute Code(s): G45.9 - TRANSIENT CEREBRAL ISCHEMIC ATTACK, UNSPECIFIED SNOMED Code(s): 539898003 Plan: Her syncope seem to be related to postural hypotension, probably secondary to dehydration. Patient has been hydrated. Patient is feeling better. He patient doesn't have any symptoms and if blood pressure stable without any postural changes, patient could be discharged home. Patient also may be instructed to wear knee-high stockings and increase fluid and salt intake
[2018-07-31] MEDS ORDERED: FAMOTIDINE 20 MG TAB PO SCH (09:00)
[2018-07-31] MEDS: FLUTICASONE 50MCG/SPRAY NASAL 16GM EA NOSTRIL SCH (10:44)
[2018-07-31] MEDS: BRIMONIDINE TARTRATE 0.2% DROPS 5 ML BTL BOTH EYES SCH (10:45)
[2018-07-31] MEDS: HEPARIN SODIUM,PORCINE 5,000 UNIT/ML 1 ML VIAL SQ SCH (10:45)
[2018-07-31] MEDS: DORZOLAMIDE HCL 2% DROPS 10 ML BTL BOTH EYES SCH (10:45)
[2018-07-31] MEDS: ASPIRIN 81 MG PO SCH (10:45)
[2018-07-31 12:03] VITALS: BP 161/92; PULSE 77; TEMP 99.2
--- NOTE | 2018-07-31 14:03 | P.DS ---
Providers Date of admission: 07/29/18 15:51 Attending physician: Edwige Hicks Consults: 07/29/18 15:52 Consult Physician Urgent Consulting Provider: Lena Vallejo Consult Reason/Comments: syncope Do you want consulting provider notified?: Yes Primary care physician: Osman [facility] Course: Diagnosis: Postural hypotension Syncope, secondary to above dehydration Abnormal UA, secondary dehydration, unlikely UTI infection . Patient is asymptomatic and she finished her course of antibiotic. hyponatremia, mild leukocytosis, resolved History of asthma History of TIA History of hyperlipidemia History of glaucoma on both eyes History of bronchitis Hospital course This is a pleasant 83 years old female with past medical history of asthma, hyperlipidemia, glaucoma in both eyes and bronchitis, TIA. Presents because of syncope, pt states [facility] and was waiting for longer than usual when her legs gave away and she syncopized, she was not sure for how long she was on the floor , but she thinks it was not long, she regains consciousness quickly and while she was sitting she sycopized for a second time , no witnessed tonic clonic activity , no urine or bowel incontinance, no tongue biting , pt denies chest pain , dizziness, or palpiation during the syncope but she states she was not drinking much fluid as she supposed to be lately and today morning she did not eat or drink as usual. Also patient had couple but sweats. On admission patient was found to have postural hypotension with a drop in her systolic blood pressure when she stands up from 160 down to 100. Patient was treated with IV hydration and on the day of discharge her postural symptoms has resolved, her vomitus showing 167/84 with heart rate 86 supine , 163/82 with heart rate 87 while sitting, and blood pressure 160/90 with heart rate 90 while standing. Patient has no more symptoms no more dizziness or syncope.No chest pain or palpitation. No change in urine or bowel habits. No fever. Patient also has been evaluated by garage laborer who cleared her for discharge. Patient was encouraged to drink more water and take more salts. Problem and management plan was discussed with the patient and she verbalized understanding and acceptance, family at bedside Patient was found stable and can be discharged home however she needs follow-up as an outpatient. Patient states she will make her own appointments with PCP as today's weekend. Gen: patient is a AAOx3, no distress CVS: S1-S2, RRR, no murmur Lungs: B/L CTA, no wheezing Abdomen: soft, no distention, no tenderness, positive bowel sounds Extremity: no leg edema or induration Time spent more than 35 minutes Patient Condition at Discharge: Good Plan - Discharge Summary New Discharge Prescriptions: New Acetaminophen Tab [Tylenol] 650 mg PO Q4HR PRN tab PRN Reason: Fever And/ Or Pain Continue Latanoprost Ophth [Xalatan 0.005%] 1 drop BOTH EYES HS Brinzolamide/Brimonidine Tart [Simbrinza 1%-0.2% Eye Drops] 1 drop BOTH EYES BID Montelukast [Singulair] 10 mg PO HS Fluticasone Nasal [place] [Flonase Nasal [place]] 2 spr EA NOSTRIL DAILY Aspirin 81 mg PO DAILY #30 chewable Atorvastatin Calcium [Lipitor] 20 mg PO HS #30 tab Multivitamin,Therapeutic [Thera] 1 tab PO DAILY Ascorbic Acid [Vitamin C] 500 mg PO DAILY Vit C/E/Zn/Coppr/Lutein/Zeaxan [Preservision Areds 2 Softgel] 2 cap PO HS Mometasone Furoate [Asmanex Hfa] 1 inhalation INHALATION HS Discontinued Ibuprofen [Motrin Ib] 200 mg PO DAILY Discharge Medication List Brinzolamide/Brimonidine Tart [Simbrinza 1%-0.2% Eye Drops] 1 drop BOTH EYES BID 09/07/17 [History] Latanoprost Ophth [Xalatan 0.005%] 1 drop BOTH EYES HS 09/07/17 [History] Fluticasone Nasal [place] [Flonase Nasal [place]] 2 spr EA NOSTRIL DAILY 03/12/18 [ History] Montelukast [Singulair] 10 mg PO HS 03/12/18 [History] Aspirin 81 mg PO DAILY #30 chewable 03/16/18 [Rx] Atorvastatin Calcium [Lipitor] 20 mg PO HS #30 tab 03/16/18 [Rx] Ascorbic Acid [Vitamin C] 500 mg PO DAILY 07/29/18 [History] Mometasone Furoate [Asmanex Hfa] 1 inhalation INHALATION HS 07/29/18 [History] Multivitamin,Therapeutic [Thera] 1 tab PO DAILY 07/29/18 [History] Vit C/E/Zn/Coppr/Lutein/Zeaxan [Preservision Areds 2 Softgel] 2 cap PO HS [History] Acetaminophen Tab [Tylenol] 650 mg PO Q4HR PRN tab 07/31/18 [Rx] Follow up Appointment(s)/Referral(s): Osman Wolf MD [Primary Care Provider] - 1-2 days Denilson Pearl MD [STAFF PHYSICIAN] - 1 Week Patient Instructions/Handouts: Syncope (GEN) Activity/Diet/Wound Care/Special Instructions: cardiac diet encourage oral hydration and salt intake , monitor your blood pressure with your doctor activity is limited till you see your doctor Discharge Disposition: HOME SELF-CARE
== END 2018-07-31 13:21 | disposition home or self-care (01) ==
LOC: EC 12:21 → 1SOBS 15:51
PROVIDERS: ADMIT Internal Medicine; ATTEND Internal Medicine
DX: I95.1 Orthostatic hypotension (principal); E78.5 Hyperlipidemia, unspecified; E86.0 Dehydration; E87.1 Hypo-osmolality and hyponatremia; D72.829 Elevated white blood cell count, unspecified; H40.9 Unspecified glaucoma; J44.9 Chronic obstructive pulmonary disease, unspecified; W19.XXXA Unspecified fall, initial encounter; Z79.82 Long term (current) use of aspirin; Z79.899 Other long term (current) drug therapy; Z90.710 Acquired absence of both cervix and uterus; Z98.49 Cataract extraction status, unspecified eye; Z86.73 Personal history of transient ischemic attack (TIA), and cerebral infarction without residual deficits; Z80.3 Family history of malignant neoplasm of breast
CPT/HCPCS: 96361 ×3; 96365; 96372 ×3; 96375; 99285; 36415; 93005; 97161; 97165; 80053; 80048 ×2; 82550 ×2; 82553 ×2; 83735; 84484 ×2; 85025 ×3; 85610; 85730; 81001; 87086; 87502; 71046; 70450; G0378 ×3; J1644 ×3; J0696

== ENCOUNTER 2018-11-13 10:26 | Emergency (ER) | payer MEDICARE ==
[2018-11-13 10:37] VITALS: BP 204/92; PULSE 85; RESP 18; TEMP 99
--- NOTE | 2018-11-13 10:57 | ED ---
Fall HPI - General Source: patient, RN notes reviewed Mode of arrival: ambulatory Limitations: no limitations <David Hidalgo - Last Filed: 11/13/18 12:09> <Elbert Robles - Last Filed: 11/13/18 12:16> - General Chief Complaint: Fall Stated Complaint: FALL, CHEST INJURY Time Seen by Provider: 11/13/18 10:39 - History of Present Illness Initial Comments: 83-year-old female presents emergency Department with a chief complaint of trip and fall. Patient states went denies she fell into a table striking her chest. Patient states that she's had worsening pain since. States it's in her lower sternal region. She states it does hurt when she twists, takes a deep breath. She states that she has no pain at rest no shortness of breath at rest Patient has a headache, dizziness, nausea vomiting. Patient denies any bruising. She did take some ibuprofen initially which seemed to help for the pain. (David Mckeon) - Related Data Home Medications Medication Instructions Recorded Confirmed Brinzolamide/Brimonidine Tart 1 drop BOTH EYES BID 09/07/17 11/13/18 [Simbrinza 1%-0.2% Eye Drops] Latanoprost Ophth [Xalatan 0.005%] 1 drop BOTH EYES HS 09/07/17 11/13/18 Fluticasone Nasal [place] [Flonase 2 spr EA NOSTRIL DAILY 03/12/18 11/13/18 Nasal [place]] Montelukast [Singulair] 10 mg PO HS 03/12/18 11/13/18 Mometasone Furoate [Asmanex Hfa] 1 puff INHALATION RT-HS 07/29/18 11/13/18 Multivitamin,Therapeutic [Thera] 1 tab PO DAILY 07/29/18 11/13/18 Fexofenadine HCl [Analisa Allergy] 180 mg PO DAILY 11/13/18 11/13/18 Lisinopril [Zestril] 5 mg PO DAILY 11/13/18 11/13/18 Previous Rx's Medication Instructions Recorded Aspirin 81 mg PO DAILY #30 chewable 03/16/18 Atorvastatin Calcium [Lipitor] 20 mg PO HS #30 tab 03/16/18 Allergies Allergy/AdvReac Type Severity Reaction Status Date / Time azithromycin Allergy Unknown Verified 11/13/18 10:51 black pepper Allergy Unknown Verified 11/13/18 10:51 gluten Allergy Unknown Verified 11/13/18 10:51 lemon Allergy Unknown Verified 11/13/18 10:51 orange juice [[place]] Allergy Unknown Verified 11/13/18 10:51 shellfish derived [Shellfish] Allergy Unknown Verified 11/13/18 10:51 wheat Allergy Unknown Verified 11/13/18 10:51 Yeast Allergy Unknown Verified 11/13/18 10:51 Review of Systems ROS Other: All systems not noted in ROS Statement are negative. <David Hidalgo - Last Filed: 11/13/18 12:09> ROS Other: All systems not noted in ROS Statement are negative. <Elbert Robles - Last Filed: 11/13/18 12:16> ROS Statement: Those systems with pertinent positive or pertinent negative responses have been documented in the HPI. Past Medical History Past Medical History: Asthma, CVA/TIA, Hyperlipidemia Additional Past Medical History / Comment(s): glaucoma -bilateral eyes, bronchitis, TIA - dx in [address] Krause History of Any Multi-Drug Resistant Organisms: None Reported Past Surgical History: Back Surgery, Cholecystectomy, Hernia Repair, Hyster ectomy Additional Past Surgical History / Comment(s): cataract, salivary gland removed, Past Anesthesia/Blood Transfusion Reactions: No Reported Reaction Past Psychological History: No Psychological Hx Reported Smoking Status: Never smoker Past Alcohol Use History: Rare Past Drug Use History: None Reported - Past Family History Mother Family Medical History: Cancer Additional Family Medical History / Comment(s): breast ca <David Hidalgo - Last Filed: 11/13/18 12:09> General Exam Limitations: no limitations General appearance: alert, in no apparent distress Head exam: Present: atraumatic, normocephalic, normal inspection Eye exam: Present: normal appearance, PERRL, EOMI. Absent: scleral icterus, conjunctival injection, periorbital swelling Neck exam: Present: normal inspection, full ROM. Absent: tenderness, meningismus, lymphadenopathy Respiratory exam: Present: normal lung sounds bilaterally, chest wall tenderness. Absent: respiratory distress, wheezes, rales, rhonchi, stridor Cardiovascular Exam: Present: regular rate, normal rhythm, normal heart sounds. Absent: systolic murmur, diastolic murmur, rubs, gallop, clicks GI/Abdominal exam: Present: soft, normal bowel sounds. Absent: distended, tenderness, guarding, rebound, rigid Neurological exam: Present: alert, oriented X3, CN II-XII intact Skin exam: Present: warm, dry, intact, normal color. Absent: rash <David Hidalgo - Last Filed: 11/13/18 12:09> Course <Elbert Robles - Last Filed: 11/13/18 12:16> Vital Signs 11/13/18 10:34 Temperature 99.0 F Pulse Rate 85 Respiratory 18 Rate Blood Pressure 204/92 O2 Sat by Pulse 99 Oximetry - Reevaluation(s) Reevaluation #1: 11/13/18 12:15 PA supervision: I proceeded [id number] evaluation the patient she does present with complaints of midsternal pain after falling 2 days ago into a metal tray. She states she got up quickly and spun around and lost her balance and fell. This is happened before when she got up quickly. She denies any cough phlegm production shortness of breath fevers chills or sweats to some pain over the lower midsternal area. She does have also complains some bruising across the left anterior inferior chest wall. She denies any abdominal pain. X-rays are unremarkable sternal x-rays do show evidence of a minimally displaced fracture. Patient will be discharged after extensive discussion with the patient family members she will follow-up with her doctor as well as Dr. Marin. Agree with the assessment and plan. She was cautioned come back if any problems such as fevers chills sweats cough or phlegm production. (Elbert Robles) Medical Decision Making <David Hidalgo - Last Filed: 11/13/18 12:09> - Medical Decision Making 83-year-old female presented for fall, chest wall injury. X-rays were obtained of the sternum and one view chest x-ray no pneumothorax there is evidence of a minimally displaced sternal fracture. While is stable she'll be given incentive spirometry. We did discuss Tylenol and Motrin. Patient will follow-up closely with PCP and pulmonology. Return parameters were discussed he shouldn't reevaluated by Dr. Robles. (David Hidalgo) Disposition Is patient prescribed a controlled substance at d/c from ED?: No Time of Disposition: 12:11 <David Hidalgo - Last Filed: 11/13/18 12:09> <Elbert Robles - Last Filed: 11/13/18 12:16> Clinical Impression: Fall, Sternum fx Disposition: HOME SELF-CARE Condition: Stable Instructions (If sedation given, give patient instructions): Chest Wall Pain (ED) Additional Instructions: Please return to the Emergency Department if symptoms worsen or any other concerns. Referrals: Osman Wolf MD [Primary Care Provider] - 1-2 days Alessandra Marin MD [STAFF PHYSICIAN] - 1-2 days
--- NOTE | 2018-11-13 11:40 | XR ---
EXAMINATION TYPE: XR chest 1V DATE OF EXAM: 11/13/2018 HISTORY: Pain. REFERENCE: NONE. FINDINGS: The lungs are overinflated. There is bibasilar atelectasis heart is not enlarged. IMPRESSION: 1. COPD. 2. BIBASILAR ATELECTASIS.
--- NOTE | 2018-11-13 11:41 | XR ---
EXAMINATION TYPE: XR sternum , 2 VIEWS DATE OF EXAM ORDERED: 11/13/2018 HISTORY: Pain. COMPARISON: None. FINDINGS: There is a minimally displaced fracture through the midshaft body of the sternum. The dista l fragment is displaced anteriorly by approximately 2 mm. IMPRESSION: MINIMALLY DISPLACED FRACTURE THE MID BODY OF THE CEREBRAL
== END 2018-11-13 12:41 | disposition home or self-care (01) ==
LOC: EC 10:26
DX: S22.20XA Unspecified fracture of sternum, initial encounter for closed fracture (principal); S20.212A Contusion of left front wall of thorax, initial encounter; J45.909 Unspecified asthma, uncomplicated; H40.9 Unspecified glaucoma; Z86.73 Personal history of transient ischemic attack (TIA), and cerebral infarction without residual deficits; Z79.51 Long term (current) use of inhaled steroids; Z79.899 Other long term (current) drug therapy; Z88.1 Allergy status to other antibiotic agents; Z91.018 Allergy to other foods; Z91.013 Allergy to seafood; W01.190A Fall on same level from slipping, tripping and stumbling with subsequent striking against furniture, initial encounter; Y92.009 Unspecified place in unspecified non-institutional (private) residence as the place of occurrence of the external cause
CPT/HCPCS: 71045; 71120; 99283

== ENCOUNTER → 2018-12-14 | Day surgery (SDC) | payer MEDICARE ==
[~2018-12-14] MED LIST: SODIUM CHLORIDE 0.9% 1,000 ML IV SCH
[2018-12-14 09:38] VITALS: BP 126/63; PULSE 73; RESP 18; TEMP 97.8
--- NOTE | 2018-12-14 13:40 | P.PCN ---
Preoperative Diagnosis: Diagnosis Recurrent syncope Twelve-lead ECG shows sinus rhythm normal OH narrow QRSsegments normal QT interval no delta waves no epsilon waves Tilt table test per protocol Baseline blood pressure 135/63 mmHg Baseline heart is 71 beats a minute patient was tilted upright at an angle of 70 per protocol There was an immediate drop in blood pressure 100/59 mmHg with a minimal increase in heart rate. Blood pressure remained between 100 110 mmHg systolic and then gradually declined to 72/50 mg mercury. She complained of being lightheaded and stated that she is almost and passed out. She. Very pale and was briefly unresponsive. When she was laid supine her blood pressure returned to normal at 123/60 mmHg heart rate 76 beats a minute Lowest blood pressure recorded 72 50 mmHg and maximum heart rate 97 beats a minute Impression Normal 12-lead EKG Orthostatic hypotension syndrome
== END ==
LOC: CATHEP 09:03
PROVIDERS: ATTEND Internal Medicine Clinical Cardiac Electrophysiology
DX: I95.1 Orthostatic hypotension (principal); R94.39 Abnormal result of other cardiovascular function study; R07.89 Other chest pain; E78.5 Hyperlipidemia, unspecified; Z79.82 Long term (current) use of aspirin; Z79.899 Other long term (current) drug therapy; Z88.1 Allergy status to other antibiotic agents; Z91.81 History of falling; Z82.49 Family history of ischemic heart disease and other diseases of the circulatory system
CPT/HCPCS: 93660

== ENCOUNTER → 2019-05-06 | Outpatient (CLI) | payer MEDICARE | END | disposition home or self-care (01) | LOC: LABWHC1 12:34 | PROVIDERS: ATTEND Internal Medicine Critical Care Medicine | DX: J45.40 Moderate persistent asthma, uncomplicated (principal) | CPT/HCPCS: 36415; 82785 ==

== ENCOUNTER → 2019-07-26 | Outpatient (CLI) | payer MEDICARE ==
[2019-07-26 16:34] LABS: HCT 41.6 % (34.0-46.0); HGB 13.4 gm/dL (11.4-16.0); MCH 30.7 pg (25.0-35.0); MCHC 32.1 g/dL (31.0-37.0); MCV 95.5 fL (80.0-100.0); Mean Platelet Volume 7.3; Platelet Count 275 k/uL (150-450); RBC 4.36 m/uL (3.80-5.40); RDW 13.5 % (11.5-15.5); WBC 8.7 k/uL (3.8-10.6)
== END | disposition home or self-care (01) ==
LOC: LABPAT 15:14
PROVIDERS: ATTEND Internal Medicine Interventional Cardiology
DX: Z01.812 Encounter for preprocedural laboratory examination (principal); R07.89 Other chest pain; E78.5 Hyperlipidemia, unspecified
CPT/HCPCS: 36415; 80051; 82565; 82947; 84520; 85027

== ENCOUNTER 2019-08-01 09:53 | Day surgery (SDC) | payer MEDICARE ==
[2019-07-28 09:53] VITALS: BMI 23.0
[~2019-08-01 09:53] MED LIST changes: +ALPRAZolam 0.25 MG TAB PO PRN; +ALPRAZolam 0.5 MG TAB PO PRN; +ASPIRIN 325 MG TAB PO STA; +ATORVASTATIN 80 MG TAB PO STA; +HYDROmorphone 0.5 MG/0.5 ML SYRINGE IVP STA; +NITROGLYCERIN SL TABS 0.4 MG TAB SUBLINGUAL PRN; -SODIUM CHLORIDE 0.9% 1,000 ML IV SCH; +SODIUM CHLORIDE 0.9% 1,000 ML in EMPTY BAG 1 BAG IV ONE; +hydrALAZINE HCL 20 MG/ML 1 ML VIAL IVP STA
[2019-08-01 10:14] VITALS: RESP 16; TEMP 97.7
[2019-08-01] MEDS ORDERED: LIDOCAINE 1% INJ 10MG/ML (20 ML MDV) ONE (12:03)
[2019-08-01] MEDS ORDERED: methylPREDNISolone SOD SUCCI 125 MG/2 ML VIAL ONE (12:21)
[2019-08-01] MEDS ORDERED: diphenhydrAMINE 50 MG/ML 1 ML VIAL ONE (12:21)
[2019-08-01] MEDS ORDERED: methylPREDNISolone SOD SUCCI 125 MG/2 ML VIAL IV ONE (12:30)
[2019-08-01] MEDS ORDERED: diphenhydrAMINE 50 MG/ML 1 ML VIAL IVP ONE (12:30)
[2019-08-01] MEDS ORDERED: VERAPAMIL 2.5 MG/ML 2 ML AMP ONE (12:33)
[2019-08-01] MEDS ORDERED: HEPARIN SODIUM 1,000 UN/ML (10ML VL) ONE (12:33)
[2019-08-01] MEDS ORDERED: MIDAZOLAM 2 MG/2 ML VIAL IV ONE (12:35)
[2019-08-01] MEDS ORDERED: LIDOCAINE 1% INJ 10MG/ML (20 ML MDV) SQ ONE (12:36)
[2019-08-01] MEDS ORDERED: hydrALAZINE HCL 20 MG/ML 1 ML VIAL ONE (12:54)
[2019-08-01] MEDS ORDERED: BIVALIRUDIN BOLUS 250 MG/50 ML IV ONE (12:55)
[2019-08-01] MEDS ORDERED: hydrALAZINE HCL 20 MG/ML 1 ML VIAL IV ONE (12:55)
[2019-08-01] MEDS ORDERED: BIVALIRUDIN IV ONE (12:56)
[2019-08-01] MEDS ORDERED: SODIUM CHLORIDE 0.9% IV ONE (12:56)
[2019-08-01] MEDS ORDERED: ADENOSINE 90 MG in SODIUM CHLORIDE 0.9% 60 ML IVP ONE (13:00)
[2019-08-01] MEDS ORDERED: IOPAMIDOL-370 125ML BTL INJ ONE (13:09)
[2019-08-01] MEDS ORDERED: RX INFO: IV CONTRAST WAS GIVEN 1 EACH MISC MISCELLANE PRN (13:10)
[2019-08-01] MEDS ORDERED: SODIUM CHLORIDE 0.9% 1,000 ML IV SCH (13:15)
--- NOTE | 2019-08-01 13:16 | P.PCN ---
Date of Procedure: 08/01/19 Operative Findings: CARDIAC CATHETERIZATION PERFORMING PHYSICIAN: Denilson Pearl MD, RPVI PROCEDURE PERFORMED: 1. Selective right and left coronary angiogram 2. Left heart catheterization 3. Fractional flow reserve FFR of the LAD INDICATION: This is a very pleasant 84-year-old female patient with history of hypertension and dyslipidemia who was experiencing chest discomfort. She underwent myocardial perfusion imaging stress is and that revealed reversible defect of moderate size and moderate intensity involving the anterior wall of the LV. Because of that heart catheterization was advised COMPLICATION: None APPROACH: Right common femoral artery LEVEL OF SEDATION: Moderate sedation length of 32 minutes PROCEDURE DESCRIPTION: After obtaining an informed consent, the patient was brought to cardiac laborer hoisting. Local anesthesia was performed using lidocaine subcutaneously. The right common femoral artery was cannulated using Seldinger technique, the guidewire passed easily, following that we advanced a 6 Portuguese sheath dilator assembly, the wire and dilator were removed and sheath was flushed. Selective right and left coronary angiogram using a 6-Portuguese JR3.5 and JL 3.5 catheters. Following that we did left heart catheterization using 6-Portuguese pigtail catheter. The procedure was completed there was no complication. SELECTIVE CORONARY ANGIOGRAM: The right coronary artery: Is a moderate caliber vessel and a dominant vessel. Its angiographically normal. Left main: Short but angiographically normal. Bifurcates into LCx and LAD The left circumflex: Is a moderate to large caliber vessel and codominant vessel. Its angiographically normal. In the midportion gives rises into the first and second obtuse marginal branches and both appeared to be angiographically normal. The left anterior descending artery: Is a large caliber vessel. The proximal LAD appears to be angiographically normal. The mid LAD has a tubular lesion appears to be in the range of 50-60% and this is by the bifurcation of the first diagonal branch which appeared to be angiographically normal. The LAD distally appears to be angiographically normal. HEMODYNAMICS: The LVEDP was 8 mmHg without significant gradient across aortic valve FFR OF THE LAD: Anticoagulation was achieved with Angiomax. Subsequently and after zeroing the Doppler wire and equal lysing between the Doppler wire and the guiding catheter which was JL4 short-tipped catheter we did an FFR per IV adenosine infusion. FFR came in to be at 0.85. 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 FFR was applied and came in to be nonischemic 0.85 POSTPROCEDURE MANAGEMENT: Medical treatment Follow-up with the patient
[2019-08-01 15:06] VITALS: BP 176/71; PULSE 86
== END 2019-08-01 17:40 | disposition home or self-care (01) ==
LOC: CATHCVL 09:53
PROVIDERS: ATTEND Internal Medicine Interventional Cardiology
DX: I25.110 Atherosclerotic heart disease of native coronary artery with unstable angina pectoris (principal); E78.5 Hyperlipidemia, unspecified; I10 Essential (primary) hypertension; E78.00 Pure hypercholesterolemia, unspecified; M25.50 Pain in unspecified joint; Z86.79 Personal history of other diseases of the circulatory system; Z79.899 Other long term (current) drug therapy; Z79.82 Long term (current) use of aspirin; Z88.1 Allergy status to other antibiotic agents; Z82.49 Family history of ischemic heart disease and other diseases of the circulatory system
CPT/HCPCS: 93571; 93458; C1760; C1887; C1769 ×2; C1894; J2250; J0360; J1200; J2930; J2001; J0583; J0153; Q9967

== ENCOUNTER → 2019-08-11 | Outpatient (CLI) | payer MEDICARE ==
--- NOTE | 2019-08-11 12:16 | US ---
EXAMINATION TYPE: US thyroid st tissue head/neck DATE OF EXAM: 08/11/2019 COMPARISON: US 05/21/2018 CLINICAL HISTORY: E04.1 NONTOXIC SINGLE THYROID NODULE. GLAND SIZE: Right Lobe: 5.1 x 1.4 x 2.2 cm Overall Parenchyma: heterogenous Left Lobe: 4.7 x 2.0 x 2.1 cm Overall Parenchyma: heterogeneous Isthmus Thickness: 0.5 cm NODULES RIGHT: # of nodules measured on right: 2 largest of multiple nodules 1. 0.8 X 0.6 x 0.6 cm hypoechoic mixed nodule at the upper pole with well-defined margins; interrup sylvia peripheral calcification. This nodule is wide as is tall and shows no intranodular vascularity. Prior size: 1.9 x 1.5 x 0.9 cm 2. 0.7 X 0.6 x 0.7 cm hypoechoic mixed nodule at the lower pole with well-defined margins; present w ith microcalcifications. This nodule is taller than wide and shows intranodular vascularity. LEFT: # of nodules measured on left: 1 1. 3.0 X 1.8 x 1.5 cm isoechoic mixed nodule at the mid and lower pole with poorly defined margins. This nodule is wider than tall and shows intranodular vascularity. Prior size: 1.9 x 1.4 x 1.6 cm ISTHMUS: # of nodules measured in the isthmus: 1 1. 0.6 X 0.5 x 0.3 cm hypoechoic mixed nodule at the left pole with well-defined margins. This nod ule is wider than tall and shows intranodular vascularity. Bilateral neck scanned: no evidence of lymphadenopathy. IMPRESSION: Interval growth of the left thyroid nodule. This now measures 3.0 cm as opposed to 1.9 cm on the prio r. Fine-needle aspiration is recommended if not previously performed. :
== END | disposition home or self-care (01) ==
LOC: RADUSWWP 11:07
PROVIDERS: ATTEND Family Medicine
DX: E04.1 Nontoxic single thyroid nodule (principal)
CPT/HCPCS: 76536

== ENCOUNTER → 2019-08-15 | Outpatient (CLI) | payer MEDICARE ==
[2019-08-15 17:12] LABS: T4, Free (Free Thyroxine) 1.2 ng/dL (0.80-1.80)
== END | disposition home or self-care (01) ==
LOC: LABWHC1 09:10
PROVIDERS: ATTEND Otolaryngology
DX: E03.9 Hypothyroidism, unspecified (principal)
CPT/HCPCS: 36415; 84439; 84443

== ENCOUNTER → 2020-02-24 | Outpatient (CLI) | payer MEDICARE ==
--- NOTE | 2020-02-24 18:34 | US ---
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 GLAND SIZE: Right Lobe: 4.6 x 1.1 x 0.8 cm Overall Parenchyma: heterogenous Left Lobe: 4.4 x 2.3 x 1.8 cm Overall Parenchyma: heterogeneous Isthmus Thickness: 0.3 cm NODULES RIGHT: # of nodules measured on right: 2 largest of multiple nodules 1. 0.8 X 0.6 x 0.6 cm hypoechoic mixed nodule at the upper pole with well-defined margins. This n odule is wide as is tall and shows no intranodular vascularity. Prior size: 0.8 x 0.6 x 0.6 cm 2. 0.9 x 0.7 x 0.6cm hypoechoic mixed nodule at the lower pole with well-defined margins. This nod ule is taller than wide and shows intranodular vascularity. Prior size: 0.7 X 0.6 x 0.7 LEFT: # of nodules measured on left: 1 1. 2.2 X 1.5 x 1.6 cm isoechoic mixed nodule at the mid and lower pole with poorly defined margins . This nodule is wider than tall and shows intranodular vascularity. Prior size: 3.0 X 1.8 x 1.5 cm ISTHMUS: # of nodules measured in the isthmus: 1 1. 0.6 X 0.3 x 0.6cm hypoechoic mixed nodule at the left pole with well-defined margins. This nod ule is wider than tall and shows intranodular vascularity. Prior size 0.6 X 0.5 x 0.3cm Bilateral neck scanned: no evidence of lymphadenopathy. Impressions: 1. Multiple bilateral thyroid nodules, no suspicious enlarging nodules evident.
--- NOTE | 2020-02-27 14:08 | MM ---
Reason for exam: screening (asymptomatic). Last mammogram was performed 2 years and 6 months ago. History: Patient is postmenopausal. Family history of breast cancer in sister at age 75, breast cancer in mother at age 50, and breast cancer in daughter at age 50. Took estrogen for 3 months. Physical Findings: A clinical breast exam by your physician is recommended on an annual basis and results should be correlated with mammographic findings. MG 3D Screening Mammo W/Cad Bilateral CC and MLO view(s) were taken. Prior study comparison: August 21, 2017, bilateral MG 3d screening mammo w/cad. June 04, 2016, bilateral MG 3d screening mammo w/cad. The breast tissue is heterogeneously dense. This may lower the sensitivity of mammography. No significant changes when compared with prior studies. ASSESSMENT: Benign, BI-RAD 2 RECOMMENDATION: Routine screening mammogram of both breasts in 1 year.
== END | disposition home or self-care (01) ==
LOC: RADMAMWWP 12:53
PROVIDERS: ATTEND Family Medicine
DX: Z12.31 Encounter for screening mammogram for malignant neoplasm of breast (principal); E04.2 Nontoxic multinodular goiter
CPT/HCPCS: 76536; 77063; 77067

== ENCOUNTER 2021-02-12 17:30 | Emergency (ER) | payer MEDICARE ==
[2021-02-12 17:38] VITALS: BP 210/104; PULSE 84; RESP 20; TEMP 98
[2021-02-12] MEDS ORDERED: SODIUM CHLORIDE 0.9% 500 ML 500 ML IV STA (17:56)
--- NOTE | 2021-02-12 17:58 | ED ---
General Adult HPI - General Chief complaint: Abdominal Pain Stated complaint: Blood in Stool Time Seen by Provider: 02/12/21 17:39 Source: patient Mode of arrival: ambulatory Limitations: no limitations - History of Present Illness Initial comments: Dictation was produced using [employer] dictation software. please excuse any grammatical, word or spelling errors. Chief Complaint: 85-year-old female presents to the emergency part from primary care physician's office for black stools and abdominal pain History of Present Illness: Is an 85-year-old female she's been feeling weak for the last couple days. She went to see her primary care physician prior to arrival. She is told to come to the emergency room. Patient's takes Pepto-B ismol however has been having black stools and usual. She does complain of some mild right upper quadrant abdominal pain. States it's that discomfort. Denies any changes of symptoms with food intake. No nausea vomiting. No diarrhea. States that she feels weak. Does not take any anticoagulation medications. The ROS documented in this emergency department record has been reviewed and confirmed by me. Those systems with pertinent positive or negative responses have been documented in the HPI. All other systems are other negative and/or noncontributory. PHYSICAL EXAM: General Impression: Alert and oriented x3, not in acute distress HEENT: Normocephalic atraumatic, extra-ocular movements intact, pupils equal and reactive to light bilaterally, mucous membranes moist. Cardiovascular: Heart regular rate and rhythm Chest: Able to complete full sentences, no retractions, no tachypnea Abdomen: abdomen soft, non-tender, non-distended, no organomegaly Musculoskeletal: Pulses present and equal in all extremities, no peripheral edema Motor: no focal deficits noted Neurological: CN II-XII grossly intact, no focal motor or sensory deficits noted Skin: Intact with no visualized rashes Psych: Normal affect and mood Rectal exam: No gross blood on digital rectal exam, no melanotic stool ED course: 85-year-old female presents emergency department for weakness concerns of black stools. Vital signs upon arrival are within acceptable limits. Laboratory evaluation obtained. CBC is unremarkable. Metabolic panel is within acceptable limits. Still, blood is negative. Electrolytes are unremarkable. Abdominal x-rays negative. Patient reevaluated bedside at 6:45 PM found to be stable medical condition. At this point no clear source of patient's weakness however no high-risk features identified. She is well-appearing at the bedside and is agreeable discharged to follow-up with her primary care doctor. Return precautions discussed. Patient to discharge. - Related Data Home Medications Medication Instructions Recorded Confirmed Montelukast [Singulair] 10 mg PO HS 03/12/18 02/12/21 Multivitamin,Therapeutic [Thera] 1 tab PO DAILY 07/29/18 02/12/21 Fexofenadine HCl [Analisa Allergy] 180 mg PO DAILY 11/13/18 02/12/21 Calcium Carbonate [Calcium] 600 mg PO DAILY 02/12/21 02/12/21 Fluticasone Propionate [Flovent 1 puff INHALATION RT-BID 02/12/21 02/12/21 Diskus] Sea-Kelp 1 cap PO DAILY 02/12/21 02/12/21 Previous Rx's Medication Instructions Recorded Atorvastatin Calcium [Lipitor] 20 mg PO HS #30 tab 03/16/18 Allergies Allergy/AdvReac Type Severity Reaction Status Date / Time azithromycin Allergy Unknown Verified 02/12/21 18:14 black pepper Allergy Unknown Verified 02/12/21 18:14 gluten Allergy Unknown Verified 02/12/21 18:14 lemon Allergy Unknown Verified 02/12/21 18:14 orange juice [Greene] Allergy Unknown Verified 02/12/21 18:14 shellfish derived [Shellfish] Allergy Unknown Verified 02/12/21 18:14 wheat Allergy Unknown Verified 02/12/21 18:14 Yeast Allergy Unknown Verified 02/12/21 18:14 Review of Systems ROS Statement: Those systems with pertinent positive or pertinent negative responses have been documented in the HPI. ROS Other: All systems not noted in ROS Statement are negative. Past Medical History Past Medical History: Asthma, CVA/TIA, Hyperlipidemia Additional Past Medical History / Comment(s): 11/13/18 FELL AND HIT HER CHEST WENT TO . WENT TO SEE DR. KRAUSE WITHIN THE PAST COUPLE OF WEEKS AND AN MRI WAS ORDERED, SHE WILL BRING IN RESULTS SO DOCUMENTS CAN BE SCANNED INTO [facility] CHART. CARDIOVASCULAR HX BY DR. GILL. Glaucoma -bilateral eyes, bronchitis, TIA - dx in [address] Krause History of Any Multi-Drug Resistant Organisms: None Reported Past Surgical History: Back Surgery, Cholecystectomy, Hernia Repair, Hysterectomy Additional Past Surgical History / Comment(s): BART CATARACTS REMOVED. salivary gland removed, Past Anesthesia/Blood Transfusion Reactions: No Reported Reaction Past Psychological History: No Psychological Hx Reported Smoking Status: Never smoker Past Alcohol Use History: Rare Past Drug Use History: None Reported - Past Family History Mother Family Medical History: Cancer Additional Family Medical History / Comment(s): Breast cancer. General Exam Limitations: no limitations Course Vital Signs 02/12/21 17:34 Temperature 98.0 F Pulse Rate 84 Respiratory 20 Rate Blood Pressure 210/104 O2 Sat by Pulse 98 Oximetry Medical Decision Making - Lab Data Result diagrams: 02/12/21 18:12 02/12/21 18:12 Lab Results 02/12/21 02/12/21 02/12/21 Range/Units 18:12 18:12 18:12 WBC 7.1 (3.8-10.6) k/uL RBC 4.60 (3.80-5.40) m/uL Hgb 15.0 (11.4-16.0) gm/dL Hct 43.7 (34.0-46.0) % MCV 95.0 (80.0-100.0) fL MCH 32.6 (25.0-35.0) pg MCHC 34.3 (31.0-37.0) g/dL RDW 13.4 (11.5-15.5) % Plt Count 223 (150-450) k/uL MPV 7.4 Neutrophils % 56 % Lymphocytes % 32 % Monocytes % 7 % Eosinophils % 1 % Basophils % 0 % Neutrophils # 4.0 (1.3-7.7) k/uL Lymphocytes # 2.3 (1.0-4.8) k/uL Monocytes # 0.5 (0-1.0) k/uL Eosinophils # 0.1 (0-0.7) k/uL Basophils # 0.0 (0-0.2) k/uL Sodium 135 L (137-145) mmol/L Potassium 3.7 (3.5-5.1) mmol/L Chloride 107 (98-107) mmol/L Carbon Dioxide 19 L (22-30) mmol/L Anion Gap 9 mmol/L BUN 15 (7-17) mg/dL Creatinine 0.87 (0.52-1.04) mg/dL Est GFR (CKD-EPI)AfAm 70 (>60 ml/min/1.73 sqM) Est GFR (CKD-EPI)NonAf 61 (>60 ml/min/1.73 sqM) Glucose 108 H (74-99) mg/dL Plasma Lactic Acid Yogi 1.3 (0.7-2.0) mmol/L Calcium 9.6 (8.4-10.2) mg/dL Magnesium 1.8 (1.6-2.3) mg/dL Total Bilirubin 0.8 (0.2-1.3) mg/dL AST 30 (14-36) U/L ALT 20 (4-34) U/L Alkaline Phosphatase 74 (38-126) U/L Total Protein 6.9 (6.3-8.2) g/dL Albumin 4.2 (3.5-5.0) g/dL Lipase 162 (23-300) U/L Stool Occult Blood (Negative) 02/12/21 Range/Units 18:12 WBC (3.8-10.6) k/uL RBC (3.80-5.40) m/uL Hgb (11.4-16.0) gm/dL Hct (34.0-46.0) % MCV (80.0-100.0) fL MCH (25.0-35.0) pg MCHC (31.0-37.0) g/dL RDW (11.5-15.5) % Plt Count (150-450) k/uL MPV Neutrophils % % Lymphocytes % % Monocytes % % Eosinophils % % Basophils % % Neutrophils # (1.3-7.7) k/uL Lymphocytes # (1.0-4.8) k/uL Monocytes # (0-1.0) k/uL Eosinophils # (0-0.7) k/uL Basophils # (0-0.2) k/uL Sodium (137-145) mmol/L Potassium (3.5-5.1) mmol/L Chloride (98-107) mmol/L Carbon Dioxide (22-30) mmol/L Anion Gap mmol/L BUN (7-17) mg/dL Creatinine (0.52-1.04) mg/dL Est GFR (CKD-EPI)AfAm (>60 ml/min/1.73 sqM) Est GFR (CKD-EPI)NonAf (>60 ml/min/1.73 sqM) Glucose (74-99) mg/dL Plasma Lactic Acid Yogi (0.7-2.0) mmol/L Calcium (8.4-10.2) mg/dL Magnesium (1.6-2.3) mg/dL Total Bilirubin (0.2-1.3) mg/dL AST (14-36) U/L ALT (4-34) U/L Alkaline Phosphatase (38-126) U/L Total Protein (6.3-8.2) g/dL Albumin (3.5-5.0) g/dL Lipase (23-300) U/L Stool Occult Blood Negative (Negative) Disposition Clinical Impression: Weakness Disposition: HOME SELF-CARE Condition: Good Instructions (If sedation given, give patient instructions): Weakness (ED) Is patient prescribed a controlled substance at d/c from ED?: No Referrals: Osman Wolf MD [Primary Care Provider] - 1-2 days
[2021-02-12 18:21] LABS: Basophils % (A) 0 %; Eosinophils # (A) 0.1 k/uL (0-0.7); Eosinophils % (A) 1 %; HCT 43.7 % (34.0-46.0); Lymphocytes # (A) 2.3 k/uL (1.0-4.8); Lymphocytes % (A) 32 %; MCH 32.6 pg (25.0-35.0); MCHC 34.3 g/dL (31.0-37.0); Mean Platelet Volume 7.4; Monocytes # (A) 0.5 k/uL (0-1.0); Monocytes % (A) 7 %; Neutrophils % (A) 56 %; Platelet Count 223 k/uL (150-450); RDW 13.4 % (11.5-15.5); WBC 7.1 k/uL (3.8-10.6)
[2021-02-12 18:32] LABS: Albumin 4.2 g/dL (3.5-5.0); Calcium 9.6 mg/dL (8.4-10.2); Magnesium 1.8 mg/dL (1.6-2.3); Potassium 3.7 mmol/L (3.5-5.1); Total Bilirubin 0.8 mg/dL (0.2-1.3); Total Protein 6.9 g/dL (6.3-8.2)
--- NOTE | 2021-02-12 18:37 | XR ---
EXAMINATION TYPE: XR abdomen 1V DATE OF EXAM: 02/12/2021 COMPARISON: NONE HISTORY: Abdominal pain TECHNIQUE: Single view FINDINGS: There is no sign of intestinal obstruction or pneumoperitoneum. Fecal pattern is normal. Th ere are no pathologic calcifications over the kidneys. Lung bases appear clear. IMPRESSION: Nonacute abdomen.
== END 2021-02-12 18:56 | disposition home or self-care (01) ==
LOC: EC 17:30
DX: R53.1 Weakness (principal); E78.5 Hyperlipidemia, unspecified; J45.909 Unspecified asthma, uncomplicated; Z79.51 Long term (current) use of inhaled steroids; Z80.3 Family history of malignant neoplasm of breast; Z86.73 Personal history of transient ischemic attack (TIA), and cerebral infarction without residual deficits; Z90.49 Acquired absence of other specified parts of digestive tract
CPT/HCPCS: 36415; 74018; 80053; 82272; 83605; 83690; 83735; 85025; 93005; 96360; 99284

== ENCOUNTER → 2021-03-14 | Outpatient (CLI) | payer MEDICARE ==
--- NOTE | 2021-03-15 11:23 | MM ---
Reason for exam: screening (asymptomatic). Last mammogram was performed 1 year and 1 month ago. History: Patient is postmenopausal. Family history of breast cancer in sister at age 75, breast cancer in mother at age 50, and breast cancer in daughter at age 50. Took estrogen for 3 months. Physical Findings: A clinical breast exam by your physician is recommended on an annual basis and results should be correlated with mammographic findings. MG 3D Screening Mammo W/Cad Bilateral CC and MLO view(s) were taken. Prior study comparison: February 24, 2020, bilateral MG 3d screening mammo w/cad. August 21, 2017, bilateral MG 3d screening mammo w/cad. June 04, 2016, bilateral MG 3d screening mammo w/cad. The breast tissue is heterogeneously dense. This may lower the sensitivity of mammography. There are benign appearing vascular calcifications bilaterally. There is no discrete abnormality. ASSESSMENT: Benign, BI-RAD 2 RECOMMENDATION: Routine screening mammogram of both breasts in 1 year.
== END | disposition home or self-care (01) ==
LOC: RADMAMWWP 16:31
PROVIDERS: ATTEND Family Medicine
DX: Z12.31 Encounter for screening mammogram for malignant neoplasm of breast (principal); Z78.0 Asymptomatic menopausal state; Z80.3 Family history of malignant neoplasm of breast
CPT/HCPCS: 77063; 77067

== ENCOUNTER 2022-01-06 21:26 | Emergency (ER) | payer MEDICARE ==
[2022-01-06 21:37] VITALS: RESP 20
[2022-01-06] MEDS ORDERED: SODIUM CHLORIDE 0.9% 500 ML 500 ML IV STA (21:56)
--- NOTE | 2022-01-06 22:01 | ED ---
General Adult HPI - General Chief complaint: Syncope Stated complaint: Syncope Time Seen by Provider: 01/06/22 21:37 Source: patient, EMS, RN notes reviewed Mode of arrival: EMS Limitations: no limitations - History of Present Illness Initial comments: This is a pleasant 86-year-old female presents to emergency department after having a syncopal episode at a local [facility] pharmacy. Patient states she wasn't feeling well, became lightheaded and put her head down on the desk. Patient was then lowered to the floor by some bystanders. There was no head or neck injury. Patient denying any current pain. Patient states yesterday she had some pain across her upper back which she gets from time to time. Patient has also had a runny nose, sore throat, nasal congestion. Patient was actually going to the pharmacy to get a COVID-19 test. However the patient believes this is related to her ALLERGIES. There's been no known fever. Patient denied any other preceding symptomology. There is no chest pain. No palpitations. No vision or hearing disturbance. No vertiginous symptoms. No headache. No abdominal pain. Patient states she's had a diminished appetite over the past few days, No headache, no fever or chills, no changes in vision or hearing, no ear pain, no difficulty with speech, no neck pain, no chest pain or shortness of breath, no abdominal pain, no nausea or vomiting, no changes in urination or bowel moveme nts, no numbness or tingling, no extremity pain, no skin rashes or lesions. Positive runny nose and nasal congestion Past medical, surgical, social, and family history reviewed. - Related Data Home Medications Medication Instructions Recorded Confirmed Montelukast [Singulair] 10 mg PO HS 03/12/18 02/12/21 Multivitamin,Therapeutic [Thera] 1 tab PO DAILY 07/29/18 02/12/21 Fexofenadine HCl [Analisa Allergy] 180 mg PO DAILY 11/13/18 02/12/21 Calcium Carbonate [Calcium] 600 mg PO DAILY 02/12/21 02/12/21 Fluticasone Propionate [Flovent 1 puff INHALATION RT-BID 02/12/21 02/12/21 Diskus] Sea-Kelp 1 cap PO DAILY 02/12/21 02/12/21 Previous Rx's Medication Instructions Recorded Atorvastatin Calcium [Lipitor] 20 mg PO HS #30 tab 03/16/18 Nirmatrelvir/Ritonavir [Paxlovid 1 each PO BID #10 tab 01/07/22 150-100 mg Pack (Eua)] Allergies Allergy/AdvReac Type Severity Reaction Status Date / Time azithromycin Allergy Unknown Verified 02/12/21 18:14 black pepper Allergy Unknown Verified 02/12/21 18:14 gluten Allergy Unknown Verified 02/12/21 18:14 lemon Allergy Unknown Verified 02/12/21 18:14 orange juice [Llano] Allergy Unknown Verified 02/12/21 18:14 shellfish derived [Shellfish] Allergy Unknown Verified 02/12/21 18:14 wheat Allergy Unknown Verified 02/12/21 18:14 Yeast Allergy Unknown Verified 02/12/21 18:14 Review of Systems ROS Statement: Those systems with pertinent positive or pertinent negative responses have been documented in the HPI. ROS Other: All systems not noted in ROS Statement are negative. Past Medical History Past Medical History: Asthma, CVA/TIA, Hyperlipidemia Additional Past Medical History / Comment(s): 11/13/18 FELL AND HIT HER CHEST WENT TO . WENT TO SEE DR. KRAUSE WITHIN THE PAST COUPLE OF WEEKS AND AN MRI WAS ORDERED, SHE WILL BRING IN RESULTS SO DOCUMENTS CAN BE SCANNED INTO [facility] CHART. CARDIOVASCULAR HX BY DR. GILL. Glaucoma -bilateral eyes, bronchitis, TIA - dx in [address] Krause History of Any Multi-Drug Resistant Organisms: None Reported Past Surgical History: Back Surgery, Cholecystectomy, Hernia Repair, Hysterectomy Additional Past Surgical History / Comment(s): BART CATARACTS REMOVED. salivary gland removed, Past Anesthesia/Blood Transfusion Reactions: No Reported Reaction Past Psychological History: No Psychological Hx Reported Smoking Status: Never smoker Past Alcohol Use History: Rare Past Drug Use History: None Reported - Past Family History Mother Family Medical History: Cancer Additional Family Medical History / Comment(s): Breast cancer. General Exam - General Exam Comments Initial Comments: Vital signs reviewed. Patient no significant distress. Cranial nerves II through XII intact. Limitations: no limitations General appearance: alert, in no apparent distress Head exam: Present: atraumatic, normocephalic, normal inspection Eye exam: Present: normal appearance, PERRL, EOMI. Absent: scleral icterus, conjunctival injection, periorbital swelling ENT exam: Present: normal exam, normal oropharynx, mucous membranes moist, normal external ear exam, other (Clear runny nose noted). Absent: mucous membranes dry Neck exam: Present: normal inspection, full ROM. Absent: tenderness, meningismus, lymphadenopathy Respiratory exam: Present: normal lung sounds bilaterally. Absent: respiratory distress, wheezes, rales, rhonchi, stridor, chest wall tenderness, accessory muscle use, decreased breath sounds, prolonged expiratory Cardiovascular Exam: Present: regular rate, normal rhythm, normal heart sounds. Absent: systolic murmur, diastolic murmur, rubs, gallop, clicks GI/Abdominal exam: Present: soft, normal bowel sounds. Absent: distended, tenderness, guarding, rebound, rigid Extremities exam: Present: normal inspection, full ROM, normal capillary refill. Absent: tenderness, pedal edema, joint swelling, calf tenderness Back exam: Present: normal inspection Neurological exam: Present: alert, oriented X3, CN II-XII intact Psychiatric exam: Present: normal affect, normal mood. Absent: anxious Skin exam: Present: warm, dry, intact, normal color. Absent: rash, petechiae Course Vital Signs 01/06/22 01/06/22 21:30 23:23 Pulse Rate 96 95 Respiratory 20 20 Rate Blood Pressure 176/88 164/93 O2 Sat by Pulse 95 96 Oximetry - Reevaluation(s) Reevaluation #1: 01/07/22 00:57 Medical record is reviewed Symptoms are improved here in the emergency department Patient is informed of results and questions answered Patient in no distress EKG Findings - EKG Comments: EKG Findings:: EKG done at 2204 shows baseline artifact, normal axis, normal intervals, T-wave inversion noted in V2. No ST elevation or oppression. Poor R-wave progression. Normal QRS morphology otherwise. Read by the ED attending physician Medical Decision Making - Medical Decision Making Patient went to the pharmacy COVID-19 test and had a syncopal episode. No head or neck injury. Was lowered to the floor. Patient tested positive for COVID- 19. CTA of the chest showed no evidence of pulmonary embolism. Magnesium was low and replaced. Patient was reevaluated prior to discharge and is no distress. Ambulating without difficulty. Patient here with her daughter. Patient being discharged with her daughter. Patient shows no evidence of respiratory distress. Head no evidence of lung inflammation on computed tomography scan. We'll treat the patient with Paxlovid. Patient was told to return to the ER for any signs or symptoms worsen. Told to return immediately if any other problems arise. All questions answered. Treatment plan discussed. Patient in agreement Every effort has been made to ensure accuracy of this dictation. However, due to the limitations of electronic medical records and dictation devices, errors in charting still occur. The case was discussed in detail with ED attending physician. Presentation, findings, treatment plan discussed in detail. Supervising physician Dr. Reyes - Lab Data Result diagrams: 01/06/22 22:01 01/06/22 22:01 Lab Results 01/06/22 01/06/22 01/06/22 Range/Units 21:57 22:01 22:01 WBC 8.9 (3.8-10.6) k/uL RBC 4.62 (3.80-5.40) m/uL Hgb 14.3 (11.4-16.0) gm/dL Hct 44.3 (34.0-46.0) % MCV 95.9 (80.0-100.0) fL MCH 31.0 (25.0-35.0) pg MCHC 32.3 (31.0-37.0) g/dL RDW 13.9 (11.5-15.5) % Plt Count 215 (150-450) k/uL MPV 7.7 Neutrophils % 72 % Lymphocytes % 17 % Monocytes % 7 % Eosinophils % 1 % Basophils % 0 % Neutrophils # 6.4 (1.3-7.7) k/uL Lymphocytes # 1.5 (1.0-4.8) k/uL Monocytes # 0.6 (0-1.0) k/uL Eosinophils # 0.1 (0-0.7) k/uL Basophils # 0.0 (0-0.2) k/uL PT 10.0 (9.0-12.0) sec INR 0.9 (<1.2) APTT 22.8 (22.0-30.0) sec D-Dimer 1.88 H (<0.60) mg/L FEU Sodium (137-145) mmol/L Potassium (3.5-5.1) mmol/L Chloride (98-107) mmol/L Carbon Dioxide (22-30) mmol/L Anion Gap mmol/L BUN (7-17) mg/dL Creatinine (0.52-1.04) mg/dL Est GFR (CKD-EPI)AfAm (>60 ml/min/1.73 sqM) Est GFR (CKD-EPI)NonAf (>60 ml/min/1.73 sqM) Glucose (74-99) mg/dL Calcium (8.4-10.2) mg/dL Magnesium (1.6-2.3) mg/dL Total Bilirubin (0.2-1.3) mg/dL AST (14-36) U/L ALT (4-34) U/L Alkaline Phosphatase (38-126) U/L Troponin I (0.000-0.034) ng/mL NT-Pro-B Natriuret Pep pg/mL Total Protein (6.3-8.2) g/dL Albumin (3.5-5.0) g/dL Coronavirus (PCR) Detected A (Not Detectd) 01/06/22 01/06/22 01/06/22 Range/Units 22:01 22:01 22:01 WBC (3.8-10.6) k/uL RBC (3.80-5.40) m/uL Hgb (11.4-16.0) gm/dL Hct (34.0-46.0) % MCV (80.0-100.0) fL MCH (25.0-35.0) pg MCHC (31.0-37.0) g/dL RDW (11.5-15.5) % Plt Count (150-450) k/uL MPV Neutrophils % % Lymphocytes % % Monocytes % % Eosinophils % % Basophils % % Neutrophils # (1.3-7.7) k/uL Lymphocytes # (1.0-4.8) k/uL Monocytes # (0-1.0) k/uL Eosinophils # (0-0.7) k/uL Basophils # (0-0.2) k/uL PT (9.0-12.0) sec INR (<1.2) APTT (22.0-30.0) sec D-Dimer (<0.60) mg/L FEU Sodium 133 L (137-145) mmol/L Potassium 4.1 (3.5-5.1) mmol/L Chloride 103 (98-107) mmol/L Carbon Dioxide 20 L (22-30) mmol/L Anion Gap 10 mmol/L BUN 28 H (7-17) mg/dL Creatinine 1.07 H (0.52-1.04) mg/dL Est GFR (CKD-EPI)AfAm 54 (>60 ml/min/1.73 sqM) Est GFR (CKD-EPI)NonAf 47 (>60 ml/min/1.73 sqM) Glucose 174 H (74-99) mg/dL Calcium 9.1 (8.4-10.2) mg/dL Magnesium 1.5 L (1.6-2.3) mg/dL Total Bilirubin 0.4 (0.2-1.3) mg/dL AST 38 H (14-36) U/L ALT 22 (4-34) U/L Alkaline Phosphatase 75 (38-126) U/L Troponin I <0.012 (0.000-0.034) ng/mL NT-Pro-B Natriuret Pep 112 pg/mL Total Protein 6.8 (6.3-8.2) g/dL Albumin 4.0 (3.5-5.0) g/dL Coronavirus (PCR) (Not Detectd) - Radiology Data Radiology results: report reviewed, image reviewed Disposition Clinical Impression: COVID-19, Hypomagnesemia Disposition: HOME SELF-CARE Condition: Stable Instructions (If sedation given, give patient instructions): COVID-19 (Coronavirus Disease 2019) (ED) Additional Instructions: SELF QUARANTINE DISCHARGE: As you are at risk for symptoms due to coronavirus, please stay home and stay away from others as much as possible. Please maintain social distance of 6 feet if possible. You should not return to work until at least 3 days (72 hours) have passed since recovery of symptoms. This defined as resolution of fever without the use of fever reducing medicines and improvement in respiratory symptoms (e.g,, cough, shortness of breath) Isolation can end at least 5 days after symptom onset and after fever ends for 24 hours (without the use of fever-reducing medication) and symptoms are i mproving, if these people can continue to properly wear a well-fitted mask around others for 5 more days after the 5-day isolation period. If you're still having symptoms at the end of 5 day period, isolate for an additional 5 days. More information about what to do if you are sick can be found on the CDC website at https://www.cdc.gov/coronavirus/2019-ncov/hb-vfu-kot-sick/gbqdu-eplr-qstd.html Expect the symptoms to last for 7-14 days from onset. Use acetaminophen (Tylenol) as needed for discomfort. You can take a maximum of 1 gram every 6 hours for discomfort, with your total dose in 24 hours not exceeding 4 grams. Be sure to maintain hydration. Drink continuous water and/or items high in vitamin C, such as orange juice and/or lemonade. For a cough you may take Mucinex or Robitussin. Also consider the use of Vicks Vapor Rub or your chest when you sleep. Use a humidifier that is cleaned frequently, in the bedroom at night. For Nausea /Vomiting/Diarrhea associated with your Illness: o Small frequent sips of room temperature liquids. o Diet: [employer] - If you are still experiencing discomfort and/or nausea please slowly advancing your diet using the BRAT Diet = bananas, rice, apples/apple sauce, toast. o With diarrhea avoid any dairy for 48 hours after symptoms resolved. o Continue with activity as tolerated. If your symptoms do get worse and you believe that the upper respiratory infection has developed into something else, such as pneumonia or severe dehydration, please return to the emergency department or follow-up with your [facility] care. But expect to be symptomatic for the days as indicated above Follow-up with your regular physician as directed. Return to the ER immediately if any symptoms worsen, new symptoms arise, or any other problems develop. Prescriptions: Nirmatrelvir/Ritonavir [Paxlovid 150-100 mg Pack (Eua)] 1 each PO BID #10 tab Is patient prescribed a controlled substance at d/c from ED?: No Referrals: Osman Wolf MD [Primary Care Provider] - 1-2 days Time of Disposition: 00:59
[2022-01-06 22:13] LABS: Basophils % (A) 0 %; Eosinophils # (A) 0.1 k/uL (0-0.7); Eosinophils % (A) 1 %; HCT 44.3 % (34.0-46.0); HGB 14.3 gm/dL (11.4-16.0); Lymphocytes # (A) 1.5 k/uL (1.0-4.8); Lymphocytes % (A) 17 %; MCHC 32.3 g/dL (31.0-37.0); MCV 95.9 fL (80.0-100.0); Mean Platelet Volume 7.7; Monocytes # (A) 0.6 k/uL (0-1.0); Monocytes % (A) 7 %; Neutrophils # (A) 6.4 k/uL (1.3-7.7); Neutrophils % (A) 72 %; Platelet Count 215 k/uL (150-450); RBC 4.62 m/uL (3.80-5.40); RDW 13.9 % (11.5-15.5); WBC 8.9 k/uL (3.8-10.6)
[2022-01-06 22:22] LABS: Calcium 9.1 mg/dL (8.4-10.2); Magnesium 1.5 mg/dL (1.6-2.3); Potassium 4.1 mmol/L (3.5-5.1); Total Bilirubin 0.4 mg/dL (0.2-1.3); Total Protein 6.8 g/dL (6.3-8.2)
[2022-01-06 22:25] LABS: INR 0.9 (<1.2); Partial Thromboplastin Time 22.8 sec (22.0-30.0)
--- NOTE | 2022-01-06 22:40 | XR ---
EXAMINATION TYPE: XR chest 1V portable DATE OF EXAM: 01/06/2022 COMPARISON: NONE HISTORY: Fall. Difficulty breathing TECHNIQUE: Single view FINDINGS: There is some atelectasis at the lung bases. Heart size is normal. There are no hilar scarlet s. Bony thorax is intact. No heart failure. IMPRESSION: Atelectasis at the lung bases. Normal heart.
[2022-01-06] MEDS ORDERED: FAMOTIDINE 20 MG/2 ML VIAL IV STA (22:53)
[2022-01-06] MEDS ORDERED: methylPREDNISolone SOD SUCCI 125 MG/2 ML VIAL IV STA (22:53)
[2022-01-06] MEDS ORDERED: diphenhydrAMINE 50 MG/ML 1 ML VIAL IVP STA (22:53)
[2022-01-06 23:23] VITALS: BP 164/93; PULSE 95
[2022-01-06] MEDS: MAGNESIUM SULFATE-D5W PMX 1 GM in DEXTROSE/WATER 1 100ML.BAG IVPB SCH (23:23)
--- NOTE | 2022-01-07 00:27 | CT ---
EXAMINATION TYPE: CT chest angio for PE DATE OF EXAM: 01/07/2022 COMPARISON: 03/16/2011 HISTORY: Syncope, elevated d-dimer, dyspnea. covid +. CT DLP: 286.4 mGycm Automated exposure control for dose reduction was used. CONTRAST: Performed with IV Contrast, patient injected with 80ml mL of Isovue 370. There are 3-D post processed images. There is a mild fibrotic changes and atelectasis at the lung bases. Heart size is normal. No pericard ial effusion. There is no mediastinal adenopathy. There are no hilar masses. Thoracic aorta is intact. No aneurysm or dissection. There is normal contrast opacification of the pulmonary arteries. There are no filling defects. The t horacic spine shows normal alignment of the vertebra. There is old fracture of the sternum. There is mild 10% depression of the central superior endplate of T12. IMPRESSION: No evidence of pulmonary embolism. Mild pulmonary fibrotic changes. There is a old sternal fracture w hich is a change compared to old exam.
[2022-01-07] MEDS: MAGNESIUM SULFATE-D5W PMX 1 GM in DEXTROSE/WATER 1 100ML.BAG IVPB SCH (01:12)
[2022-01-07 01:18] LABS: Appearance,Urine Clear (Clear); Bilirubin,Urine Negative (Negative); Blood,Urine Negative (Negative); Color,Urine Colorless; Glucose,Urine (UA) 1+ (Negative); Ketones,Urine Negative (Negative); Leukocyte Esterase,Urine Negative (Negative); Nitrite,Urine Negative (Negative); PH, Urine 5.5 (5.0-8.0); Protein,Urine Negative (Negative); Specific Gravity,Urine 1.019 (1.001-1.035); Urobilinogen,Urine <2.0 mg/dL (<2.0)
== END 2022-01-07 01:53 | disposition home or self-care (01) ==
LOC: EC 21:26
DX: U07.1 COVID-19 (principal); E83.42 Hypomagnesemia; J45.909 Unspecified asthma, uncomplicated; Z86.73 Personal history of transient ischemic attack (TIA), and cerebral infarction without residual deficits; E78.5 Hyperlipidemia, unspecified; Z88.0 Allergy status to penicillin; Z91.018 Allergy to other foods; Z91.013 Allergy to seafood; Z79.899 Other long term (current) drug therapy
CPT/HCPCS: 99285 ×2; 96365 ×2; 96375 ×4; 96361 ×2; 36415; 93005; 85379; 83880; 80053; 83735; 84484; 85025; 85610; 85730; 81003; 87635; 71045; 71275; J1200; J2930; J3475 ×2; Q9967

== ENCOUNTER → 2022-05-01 | Outpatient (CLI) | payer MEDICARE ==
--- NOTE | 2022-05-02 16:02 | MM ---
Reason for Exam: Screening (asymptomatic). Last mammogram was performed 1 year(s) and 2 month(s) ago. Patient History: Menarche at age 13. First Full-Term at age 19. Hysterectomy at age 72. Postmenopausal. Patient has history of breast feeding. Estrogen for 3 months. Sister had breast cancer, age 50. Daughter had breast cancer, age 50. Mother had breast cancer, age 50. Prior Study Comparison: 08/21/2017 Bilateral Screening Mammogram, [facility]. 02/24/2020 Bilateral Screening Mammogram, [facility]. 03/14/2021 Bilateral Screening Mammogram, [facility]. Tissue Density: The breast tissue is heterogeneously dense. This may lower the sensitivity of mammography. Findings: Analyzed By CAD. Pattern appears symmetrical and stable. Benign vascular calcifications present bilaterally. No suspicious groups of microcalcifications, spiculated or lobular masses, architectural distortion or other secondary signs of malignancy are mammographically apparent. Overall Assessment: Benign, BI-RAD 2 Management: Screening Mammogram of both breasts in 1 year. A negative mammogram report should not preclude additional follow up of suspicious palpable abnormalities. Patient should continue monthly self breast exam. A clinical breast exam by your physician is recommended on an annual basis and results should be correlated with mammographic findings. Electronically signed and approved by: Jason Rios D.O. Radiologis
== END | disposition home or self-care (01) ==
LOC: RADMAMWWP 08:05
PROVIDERS: ATTEND Family Medicine
DX: Z12.31 Encounter for screening mammogram for malignant neoplasm of breast (principal); Z78.0 Asymptomatic menopausal state; Z80.3 Family history of malignant neoplasm of breast
CPT/HCPCS: 77063; 77067

== ENCOUNTER → 2023-08-11 | Outpatient (CLI) | payer MEDICARE ==
--- NOTE | 2023-08-11 14:08 | MM ---
Reason for Exam: Screening (asymptomatic). Last mammogram was performed 1 year(s) and 3 month(s) ago. Patient History: Menarche at age 13. First Full-Term at age 19. Hysterectomy at age 72. Postmenopausal. Patient has history of breast feeding. Estrogen for 3 months. Sister had breast cancer, age 50. Daughter had breast cancer, age 50. Mother had breast cancer, age 50. Prior Study Comparison: 02/24/2020 Bilateral Screening Mammogram, [facility]. 03/14/2021 Bilateral Screening Mammogram, [facility]. 05/01/2022 Bilateral MG 3D screening mammo w/cad, [facility]. Tissue Density: There are scattered areas of fibroglandular density. Findings: Analyzed By CAD. There is no suspicious group of microcalcifications or new suspicious mass. Benign-appearing calcifications bilaterally. Overall Assessment: Benign, BI-RAD 2 Management: Screening Mammogram of both breasts in [address] [facility] will attempt to contact patient to return for supplemental views and ultrasound if indicated. Patient should continue monthly self-breast exams. A clinical breast exam by your physician is recommended on an annual basis. This exam should not preclude additional follow-up of suspicious palpable abnormalities. Note on Carmen scores and lifetime risk: 1. A Carmen score greater than 3% is considered moderate risk. If this is the case, consider specialist referral to assess eligibility for a risk reducing agent. 2. If overall lifetime risk for the development of breast cancer is 20% or higher, the patient may qualify for future screening with alternating mammogram and breast MRI. Electronically signed and approved by: Elbert Pierson DO
--- NOTE | 2023-08-11 19:17 | BD ---
EXAMINATION TYPE: Axial Bone Density DATE OF EXAM: 08/11/2023 CLINICAL HISTORY: 88 years old Female. ICD-10 CODE: Z78.0 ASYMPTOMATIC MENOPAUSAL Height: 60.25 Weight: 125 FRAX RISK QUESTIONS: Family History (Parent hip fracture): no History of Fracture in Adulthood: yes Secondary Osteoporosis: no RISK FACTORS HISTORY OF: Surgery to Spine: yes When: age 43 MEDICATIONS: Thyroid Medications: no Osteoporosis Medications: no EXAM MEASUREMENTS: Bone mineral densitometry was performed using the [employer]. Bone mineral density about the R hip (g/cm2): 0.669 Bone mineral density about the L hip (g/cm2): 0.691 T Score values are as follows: -----R Neck: -2.3 -----L Neck: -2.1 -----R Total: -2.7 -----L Total: -2.5 Z Score values are as follows: -----R Neck: 0.5 -----L Neck: 0.6 -----R Total: 0.0 -----L Total: 0.2 Bone mineral density has: Decreased -1.6% since study of: 12/27/2019 Bone mineral density about the L Wrist (g/cm2): 0.282 T Score values are as follows: -----Dist. R+U: -5.5 -----Prox. R+U: -5.6 -----Radius total: -6.5 Z Score values are as follows: -----Dist. R+U: -1.9 -----Prox. R+U: -2.1 -----Radius total: -2.9 Bone mineral density has: Decreased -15.4% since study of: 12/27/2019 FRAX%s: The graph provided illustrates a 20.2% chance for a major osteoporotic fx and a 6.5% chance f or the hips probability for fx in 10 years time. IMPRESSION: Osteoporosis (T Score less than -2.5). There is increased fracture risk and therapy is usually indicated based on age. Re-Screen 1-2 years. NOTE: T-SCORE=SD OF THE YOUNG ADULT MEAN.
== END | disposition home or self-care (01) ==
LOC: RADMAMWWP 13:08
PROVIDERS: ATTEND Family Medicine
DX: Z12.31 Encounter for screening mammogram for malignant neoplasm of breast (principal); M81.0 Age-related osteoporosis without current pathological fracture; M85.89 Other specified disorders of bone density and structure, multiple sites; Z78.0 Asymptomatic menopausal state; Z80.3 Family history of malignant neoplasm of breast
CPT/HCPCS: 77063; 77067; 77080